=== PATIENT | male | born 1960 | race Caucasian/White ===

== ENCOUNTER 2024-11-07 11:42 | Inpatient (IN) | payer MEDICARE, OTHER, MEDICAID, SELFPAY ==
[2024-11-07] VITALS (19 sets, daily range): BP systolic 84–124; BP diastolic 41–77; PULSE 76–94; RESP 13–98; TEMP 35.9–36.8; O2SAT 94–100; BMI 28.8
--- NOTE | 2024-11-07 12:17 | EKG_ITS ---
[facility] (Formerly [facility]) Test Date: 2024-11-07 Pat Name: MAHNAZ MILLER Department: Room: - Gender: Male [employer]: : 1960 Requested By: Alpesh Do Order Number: [id number] Reading MD: Alpesh Do Measurements Intervals [place] Rate: 85 P: 34 WA: 124 QRS: 42 QRSD: 77 T: 30 QT: 382 QTc: 455 Interpretive Statements SINUS RHYTHM NONSPECIFIC T-WAVE ABNORMALITY Compared to ECG 11/22/2023 14:04:07 Prolonged QT interval no longer present T-wave abnormality still present /store/S0/[id number]/ecg/[id number].pdf
--- NOTE | 2024-11-07 12:18 | XR_ITS ---
Examination: Ultrasound-guided paracentesis Abdominal sonogram limited Date and time of exam: November 05, 2024 at 1414 hours INDICATIONS: Cirrhosis, increasing abdominal distention this week Informed consent provided. A timeout was completed verifying correct patient, procedure, site, positioning, and special adequate movement if applicable. Technique: Multiple sonographic images of the abdomen have been obtained. Appropriate area for paracentesis was marked. Local anesthesia is obtained with 1% lidocaine. Yueh catheter is successfully introduced. Findings: Abdominal sonographic images demonstrate sufficient ascitic fluid for paracentesis. After placing the Yueh catheter, 5900 cc of fluid were successfully removed. During and after completion of the procedure the patient appear in satisfactory and stable condition with no complications observed. Estimated blood loss 0 cc Impression: Abdominal ascites Successful ultrasound-guided paracentesis as described above
--- NOTE | 2024-11-07 12:20 | PD.EDAMS ---
Altered Mental Status RME/HPI General Chief Complaint: Altered Mental Status Stated Complaint: AMS Time Seen by Provider: 11/07/24 12:13 Arrival date/time: 11/07/24 11:42 RME / HPI RME / HPI narrative: 64-year-old male patient with significant history of end-stage liver disease, abdominal ascites requiring frequent paracentesis, was brought in by family via EMS due to altered mental status. Patient was noted to be altered since yesterday, and worsening abdominal distention. Patient is supposed to have outpatient paracentesis last week however it was canceled due to unknown reasons. Usually paracentesis done in [place]. Patient was not noted to have fever. Was not noted to have recent fall or trauma to the head. Patient is moving around however confused. did not notice any vomiting blood or blood in the stool. Patient was noted to have worsening abdominal distention, described as rock solid. Patient is DNR. Patient is not taking his lactulose last intake was last week. This morning patient was about to fall however the was able to catch the patient and there was no injury involved. Related Data Home Medications ?Medication ?Instructions ?Recorded ?Confirmed levothyroxine 25 mcg tablet 25 mcg PO QDAY 10/19/19 01/26/24 furosemide 20 mg tablet 20 mg PO BID 01/26/24 01/26/24 metolazone 5 mg tablet 5 mg PO QDAY 01/26/24 01/26/24 pantoprazole 40 mg tablet,delayed 40 mg PO QDAY 01/26/24 01/26/24 release Allergies Allergy/AdvReac Type Severity Reaction Status Date / Time No Known Allergies Allergy Verified 01/26/24 09:03 Review of Systems Review of Systems Narrative Review of Systems: Review of system reviewed and within normal limits except mentioned in HPI ED Exam Narrative Physical exam: VITAL SIGNS: Reviewed. GENERAL APPEARANCE: Awake, confused, does not follows commands, no acute distress, HEAD AND FACE: Non-traumatic. ENT: PERRL, pink conjunctivitis, eyelid no trauma, Mucous membrane moist. NECK: Supple, nontender, no nuchal rigidity. CHEST: No tenderness, no crepitus, no paradoxical movement, no retractions. LUNGS: Clear, well ventilated, symmetric, no rales, no wheezing, no ronchi, no stridor, good breath sounds bilaterally. HEART: Regular rate, regular rhythm, no murmur, no gallops. ABDOMEN: Soft, positive bowel sounds, distended, positive fluid wave test, no guarding, nontender, no rebound, no masses, RECTAL: Deferred. GENITAL: Deferred. NEUROLOGICAL: Gross motor function intact sensory function intact, Appropriate for age. MUSCULOSKELETAL: low back nontender, full range of motion. EXTREMITIES: Nontender, full range of motion. SKIN: Color pink, dry, no rash, no lacerations, no abrasions, no contusions. LYMPHATICS: Deferred. Course Quality Measures none Orders Category Date Time Status COVID-19 Screening Questionnaire NOW Care 11/07/24 14:39 Active Decision to Admit X1 Care 11/07/24 14:39 Completed EKG (ED ONLY) *Do not use* NOW Care 11/07/24 12:[address] head/brain wo con Stat Exams 11/07/24 14:49 Completed EKG (ED Only) Stat Exams 11/07/24 12:17 Draft US paracentesis abd w/image Stat Exams 11/07/24 12:18 Completed XR chest 1V Stat Exams 11/07/24 12:27 Completed Ammonia Stat Lab 11/07/24 12:46 Completed Bilirubin,Direct Stat Lab 11/07/24 12:46 Completed Blood Culture (Lab) Stat Lab 11/07/24 12:46 Received CBC Stat Lab 11/07/24 12:46 Completed Comprehensive Metabolic Panel Stat Lab 11/07/24 12:46 Completed Lactate (Lactic Acid) Stat Lab 11/07/24 12:46 Completed Lactic Acid, 3 HR Stat Lab 11/07/24 18:00 Completed Magnesium Stat Lab 11/07/24 12:46 Completed Partial Thromboplastin Time Stat Lab 11/07/24 12:46 Completed Phosphorous Stat Lab 11/07/24 12:46 Completed Procalcitonin Stat Lab 11/07/24 12:46 Completed Prothrombin Time with INR Stat Lab 11/07/24 12:46 Completed Urinalysis Stat Lab 11/07/24 17:41 Completed Albumin Human 25% Ivpb [Albuminar-25 Ivpb] Med 11/07/24 15:22 Discontinued 12.5 gm in 50 ml IV X1 Albumin Human 25% Ivpb [Albuminar-25 Ivpb] Med 11/07/24 15:22 Discontinued 12.5 gm in 50 ml IV X1 Diazepam Inj [Valium Inj] Med 11/07/24 12:26 Discontinued 5 mg IVP X1 ONE Lactulose Syrup [Enulose Syrup] Med 11/07/24 14:40 Discontinued 40 gm TN X1 ONE Lidocaine 1% Pf 30 ml [Xylocaine 1% Pf 30 ml] Med 11/07/24 13:56 Discontinued 30 ml .ROUTE .STK-MED ONE cefTRIAXone [Rocephin] 1,000 mg Med 11/07/24 14:32 Discontinued SODIUM CHLORIDE 0.9% (Popper) [Ns 0.9% (P)] 50 ml IV X1 Vital Signs Vital signs: Vital Signs Temperature 97.6 F 11/07/24 11:47 Pulse Rate 85 11/07/24 11:47 Respiratory Rate 20 11/07/24 11:47 Blood Pressure 104/66 11/07/24 11:47 Pulse Oximetry (%) 99 11/07/24 11:47 Oxygen Delivery Method Room Air 11/07/24 11:47 Altered Mental Status MDM Narrative MDM Narrative:: 64-year-old male patient with significant history of end-stage liver disease, abdominal ascites requiring frequent paracentesis, was brought in by family via EMS due to altered mental status. Patient was noted to be altered since yesterday, and worsening abdominal distention. Patient is supposed to have outpatient paracentesis last week however it was canceled due to unknown reasons. Usually paracentesis done in [place]. Patient was not noted to have fever. Was not noted to have recent fall or trauma to the head. Patient is moving around however confused. did not notice any vomiting blood or blood in the stool. Patient was noted to have worsening abdominal distention, described as rock solid. Patient is DNR. Patient is not taking his lactulose last intake was last week. This morning patient was about to fall however the was able to catch the patient and there was no injury involved. Patient's workup is significant for hemoglobin of 8.7, hematocrit of 26.7 no leukocytosis. Creatinine 1.6 lactic acid 3.9 total bili 1.9 ammonia level 108. EKG showed normal sinus rhythm, ventricular rate of 85 bpm, no ST segment elevation depression noted. Chest x-ray showed Moderate vascular congestion Suspicious for diffuse left lung pneumonia Moderate to large left pleural effusion Ultrasound-guided paracentesis was done by IR. Patient to receive IV ceftriaxone. Patient was also given lactulose 40 g per rectal. Case discussed with hospitalist who admitted the patient. Hospitalist is requesting a CT scan of the head before admission. I told him that there is no results to do CT scan at this time, there is no focal neurologic deficit, patient is moving upper and lower extremity with no limitation, except for confusion. There was no head trauma involved recently. Patient is DNR also at the same time. CT scan of the head came back unremarkable. Patient data External records reviewed:: None Clinical information provided by:: family Social determinants that could affect healthcare access:: none Patient has the following chronic illnesses:: End-stage liver disease, DNR How is presenting disease/condition affected by chronic disease/condition?: caused by Evaluation data The following diagnostics were reviewed and interpreted by me:: lab results, radiology exam(s) and EKG tracing(s) Lab and/or radiology exams considered but not ordered:: None Interpretation Summary: See results in [facility] Medications / Prescriptions Medications or Prescriptions considered but not ordered:: None Medication administrations:: Medication Administration History Acetaminophen (Acetaminophen 325 Mg Tablet) 650 mg PO Q6H PRN PRN Reason: Fever >101.5 Stop: 12/07/24 17:24 Acetaminophen (Acetaminophen 325 Mg Tablet) 650 mg PO Q6H PRN PRN Reason: PAIN SCALE 1-3 (mild Stop: 12/07/24 17:24 Docusate Sodium (Docusate Sod 100 Mg Capsule) 100 mg PO QDAY ONDINA; Protocol Stop: 12/07/24 17:29 Last Admin: 11/07/24 17:53 Dose: Not Given Documented By: URIEL Non-Admin Reason: Unable to Swallow Ceftriaxone Sodium/Dextrose (Rocephin/D5w 1gm Iv Premix) 50 mls @ 100 mls/hr IV QDAY ONDINA Stop: 11/15/24 08:59 Lactulose (Lactulose Syrup 20 Gm/30 Ml Udc) 20 gm PO TID ONDINA; Protocol Stop: 12/07/24 21:59 Midodrine (Midodrine 5 Mg Tablet) 5 mg PO TID ONDINA Stop: 12/07/24 17:44 Last Admin: 11/07/24 19:11 Dose: Not Given Documented By: URIEL Non-Admin Reason: Contraindicated Ondansetron HCl (Ondansetron Inj 2 Mg/Ml Inj 2 Ml) 4 mg IV Q6H PRN; Protocol PRN Reason: NAUSEA OR VOMITING Stop: 12/07/24 17:24 Pantoprazole Sodium (Pantoprazole Inj 40 Mg Vial) 40 mg IVP Q12HR ONDINA Stop: 12/07/24 20:59 Sennosides (Senna Tablet) 1 tab PO QDAY ONDINA; Protocol Stop: 12/07/24 17:29 Last Admin: 11/07/24 17:53 Dose: Not Given Documented By: URIEL Non-Admin Reason: Unable to Swallow Discontinued Medications Diazepam (Diazepam Inj 5 Mg/Ml Vial 2 Ml) 5 mg IVP X1 ONE Stop: 11/07/24 12:27 Last Admin: 11/07/24 12:36 Dose: 5 mg Documented By: URIEL Ceftriaxone Sodium 1,000 mg/ (Sodium Chloride) 50 mls @ 100 mls/hr IV X1 ONE Stop: 11/07/24 15:01 Last Infusion: 11/07/24 17:05 Dose: Infused Documented By: Admin: 11/07/24 16:02 Dose: 100 mls/hr Documented By: URIEL Albumin Human (Albuminar-25 Ivpb) 12.5 gm in 50 mls @ 50 mls/hr IV X1 ONE Stop: 11/07/24 16:21 Last Infusion: 11/07/24 17:05 Dose: Infused Documented By: Admin: 11/07/24 16:02 Dose: 50 mls/hr Documented By: URIEL Albumin Human (Albuminar-25 Ivpb) 12.5 gm in 50 mls @ 50 mls/hr IV X1 ONE Stop: 11/07/24 16:21 Last Infusion: 11/07/24 17:05 Dose: Infused Documented By: Admin: 11/07/24 16:03 Dose: 50 mls/hr Documented By: URIEL Sodium Chloride (Ns) 1,000 mls @ 75 mls/hr IV .[id number] ONDINA Stop: 12/07/24 17:29 Ceftriaxone Sodium/Dextrose (Rocephin/D5w 1gm Iv Premix) 50 mls @ 100 mls/hr IV QDAY ONDINA Stop: 11/14/24 17:30 Lactulose (Lactulose Syrup 20 Gm/30 Ml Udc) 40 gm TN X1 ONE; Protocol Stop: 11/07/24 14:41 Last Admin: 11/07/24 16:01 Dose: 40 gm Documented By: URIEL Lidocaine HCl (Lidocaine Inj Pf 1% 30 Ml Vial) Confirm Administered Dose 30 ml .ROUTE .[facility]-MED ONE Stop: 11/07/24 13:57 Last Admin: 11/07/24 16:07 Dose: Not Given Documented By: URIEL Non-Admin Reason: given in IR by Ceftriaxone IV lactulose per rectum Consultations Consultation(s) initiated? (list below): No Diagnosis Differential diagnosis altered mental status: altered mental status and other (Elevated ammonia level, end-stage liver disease, abdominal ascites, pneumonia) Most likely diagnosis given after review of the tests above:: Hyperammonemia, end-stage liver disease abdominal ascites pneumonia altered mental status Admission Indicated Admission indicated?: indicated Explain why admission is indicated or not indicated:: Patient is to be admitted for further management. Admission Request Was there a request for admission?: Yes Admission Attestation Admission request attestation: Discussed case with [] from Hospitalist service regarding admission. Discussed patients ED course, exam findings, labs, and radiology results. The Hospitalist [agrees,declines] to accept the patient for admission. Disposition Plan Disposition Plan: Admit Discharge Plan Plan Patient Disposition: Admit Acute Care w/in Hospital Disposition Comment: Stable Problem List Clinical Impression: Altered mental status, Hyperammonemia, Abdominal ascites, Pleural effusion, Pneumonia, End stage liver disease, DNR (do not resuscitate)
--- NOTE | 2024-11-07 12:27 | XR_ITS ---
Examination: AP chest single view Technique one AP portable upright chest single view Exam date 9: November 07, 2024 1142 hours COMPARISON: November 22, 2023 INDICATIONS: Chest pain today. FINDINGS: Mild enlargement cardiac contour Prominent vascular congestion Suspicious for diffuse left lung pneumonia Moderate to large left pleural effusion IMPRESSION: Moderate vascular congestion Suspicious for diffuse left lung pneumonia Moderate to large left pleural effusion
[2024-11-07] MEDS: DIAZEPAM INJ 5 MG/ML VIAL 2 ML IVP (12:36)
[2024-11-07 12:59] LABS: Lactate (Lactic Acid) 3.9 mMol/L (0.4-2.0)
[2024-11-07 13:04] LABS: Basophils # (Auto) 0.1 Thou/mm3 (0.0-0.2); Basophils % (Auto) 1 % (0-2.5); Eosinophils # (Auto) 0.3 Thou/mm3 (0.0-0.5); Eosinophils % (Auto) 4 % (0-10); Hematocrit 26.7 % (41.0-53.0); Immature Granulocytes % (Auto) 0 % (0-0); Immature Granulocytes Auto 0.03 Thou/mm3 (0.00-0.00); Lymphocytes # (Auto) 0.9 Thou/mm3 (1.0-4.8); Lymphocytes % (Auto) 12 % (10-50); Mean Corpuscular HGB Conc 32.6 g/dl (31.0-37.0); Mean Corpuscular Hemoglobin 29.3 pg (25.0-35.0); Mean Corpuscular Volume 90 fL (80-100); Monocytes # (Auto) 0.9 Thou/mm3 (0.0-0.8); Monocytes % (Auto) 12 % (0-12); Neutrophils # (Auto) 5.3 Thou/mm3 (1.8-7.7); Neutrophils % (Auto) 70 % (37-80); Nucleated Red Blood Cell % 0 /100 WBC (0); Platelet Count 116 Thou/mm3 (140-440); RDW Standard Deviation 47.4 fL (35.1-43.9); Red Blood Count 2.97 Miln/mm3 (4.50-5.90); White Blood Count 7.7 Thou/mm3 (3.8-10.6)
[2024-11-07 13:05] LABS: Hemoglobin 8.7 g/dL (13.5-16.0)
[2024-11-07 13:18] LABS: INR 1.1 (0.9-1.3); Partial Thromboplastin Time 29.8 Seconds (22.0-36.0); Prothrombin Time 12.4 Seconds (9.0-12.2)
[2024-11-07 13:25] LABS: Ammonia 108 uMol/L (11-32)
[2024-11-07 14:10] LABS: Alanine Aminotransferase 11 U/L (10-49); Albumin, Serum 2.4 gm/dL (3.4-4.8); Albumin/Globulin Ratio 0.7 (1.2-2.2); Alkaline Phosphatase 89 U/L (46-116); Anion Gap 11 (7-16); Aspartate Amino Transferase 24 U/L (0-34); BUN/Creatinine Ratio 13 Ratio (12-20); Bilirubin,Direct 0.7 mg/dL (0.0-0.3); Bilirubin,Total 1.9 mg/dL (0.3-1.2); Blood Urea Nitrogen 21 mg/dL (9-23); Calcium 8.1 mg/dL (8.3-10.6); Calcium (Corrected) 9.4 mg/dL (8.5-10.1); Carbon Dioxide 24.2 mMol/L (20.0-31.0); Chloride 106 mMol/L (98-107); Creatinine (Component) 1.6 mg/dL (0.6-1.3); Globulin 3.5 gm/dL (2.3-3.5); Glucose 98 mg/dL (74-106); Magnesium 2.1 mg/dL (1.6-2.6); Osmolality,Calculated 284 (275-295); Phosphorous 3.3 mg/dL (2.4-5.1); Potassium 3.8 mMol/L (3.4-5.1); Procalcitonin 0.14 ng/ml (0.0-0.49); Sodium 141 mMol/L (136-145); Total Protein 5.9 gm/dL (5.7-8.2); eGFR 47 See Note
--- NOTE | 2024-11-07 14:49 | XR_ITS ---
Examination: CT brain head without contrast. 2-D sagittal coronal reconstructions Date and time of exam:November 072024 at 1658 hours INDICATIONS: Altered mental status today CTDI: vol (mGy):42.5 DLP: (mGycm):837 Technique: Multiple CT axial sections of the brain have been obtained, 5 mm slice thickness. Contrast has not been administered. 2-D sagittal, coronal reconstructions have been obtained Low dose protocols were performed. One or more of the following dose reduction techniques were used; automated exposure control, adjustment of the mA and/or KV according to patient size, use of iterative reconstruction technique. Findings: No significant ventricular enlargement. Intra-axial or extra-axial hemorrhage density is not seen. No mass effect or midline shift Basal cisterns are not remarkable. Fourth ventricle is midline. Cranial vault intact. Impression: Negative for acute hemorrhage, mass effect or midline shift Advise clinical correlation and follow up accordingly
[2024-11-07 15:53] LABS: Reflex Lactate? Y
[2024-11-07] MEDS: LACTULOSE SYRUP 20 GM/30 ML UDC 40 GM PR (16:01)
[2024-11-07] MEDS: cefTRIAXone 1,000 MG in SODIUM CHLORIDE 0.9% (Popper) 50 ML 100 MG IV (16:02)
[2024-11-07] MEDS: ALBUMIN HUMAN 25% IVPB 12.5 GM/50 ML BTL IV ×2 (16:02→16:03)
--- NOTE | 2024-11-07 16:34 | PC.CC ---
Patient is a 64 male who presents to the hospital for AMS. Nan SAWYER made [id number] contact with patient. ASW introduced self, role, and reason for visit. Patient appeared not alert and oriented. Patient's Jackie Martinez completed initial assessment with ASW. Patient's provided a POLST and [employer] Directive that was scanned by registration into patient's chart. Patient is DNR/DNI and receives Hospice with [facility]. At home patient uses a walker to ambulate and requires assistance with completing his ADLs. Patient receives primary care with Luz Sheriff. Upon discharge the patient's plans to take patient back home. coordinator cardiopulmonary services to follow up with any discharge needs.
--- NOTE | 2024-11-07 17:37 | ESHP_ITS ---
<Statement entered by Mirna Go MD - 11/08/24 06:01> Patient is a 64-year-old male with past medical history significant for end- stage liver disease on hospice requiring frequent paracentesis who came to the ED due to generalized weakness, altered mental status and recent falls. Patient's at bedside states that patient has been uncooperative with taking his lactulose. Patient presented with a soft blood pressure of 104/66, otherwise hemodynamically stable. Labs significant for slightly low hemoglobin of 8.7, lactic acid of 3.6 and ammonia of 108. In the ED, patient was given x 1 of Valium due to patient's agitation, and later taken to ultrasound to remove 5.9 L of ascitic fluid. Patient given 50 g of albumin status post removal as well as lactulose. CT head was later ordered and requested, which showed no acute hemorrhage at this time. Patient will be admitted to the hospital for further management of acute metabolic encephalopathy in the setting of hyperammonemia and end-stage liver disease. I discussed with and supervised the corporate legal intern physician who took care of this patient. I personally saw and examined the patient and discussed the assessment and plan with the entire medicine team, including my attending , I agree with most of the assessment and plan as documented below Mirna Go M.D. PGY-2 Disclaimer: Despite multiple revisions, due to the dictation software being used, the document bellow may not be free of grammatical errors including phonetic/typographic errors. However, this does not deter from our commitment to providing health care in the patient's best interest in mind. Patient seen and examined at bedside. No acute overnight events reported. <Statement entered by Kathe Schmitz MD - 11/07/24 18:34> I discussed with and supervised the corporate legal intern physician who took care of this patient. I personally saw and examined the patient and discussed the assessment and plan with the entire medicine team, including my attending Dr. Art, I agree with the assessment and plan as documented below Patient seen and examined at bedside today. Labs and imaging reviewed. 64-year-old man with past medical history of end-stage liver disease previously on hospice, who came to the ED brought by the due to altered mental status. Due to patient is poor historian due to his altered history was taken by interviewing the . She stated that since 3 days ago he started to present altered mental status to the patient denied to take his lactulose and frequent falls for which he decided to bring him to the ED. On admission patient blood pressure was soft 104/66 HR 85 respiratory of 20, afebrile saturating 99% on room air. Labs were significant for hemoglobin of 8.7 creatinine 1.6 lactic acid 3.6 ammonia 108. ED course patient received IV diazepam x 1, paracentesis ultrasound-guided was ordered 5.9 L were removed patient received albumin IV as well as lactulose, CT head was ordered that was negative for any acute bleed, midline shift or mass effect and patient will be admitted for further treatment and management of acute encephalopathy most likely secondary to hyperammonemia in the setting of end-stage liver disease Kathe Schmitz MD PGY-3 Disclaimer: Despite multiple revisions, due to the dictation software being used, the document bellow may not be free of grammatical errors including phonetic/typographic errors. However, this does not deter from our commitment to providing health care in the patient's best interest in mind. Documentation for date of: 11/07/24 HPI History of Present Illness Chief complaint: AMS History of present illness: Patient is altered and unable to procide history, history taken from chart review and who was at bedside. 64-year-old male past medical history of end-stage liver disease, recurrent paracentesis, hypotension on midodrine presented to the ED due to altered mental status. According to the patient's symptoms started around few days ago patient does is not compliant with his lactulose. Chronic to the life patient also has been vomiting denies any blood at the time, only food particles. Family also states patient is having shaking in the hands and itchiness around his whole body. Patient is supposed to have outpatient paracentesis last week however it was canceled due to unknown reasons. Has usually paracentesis done in [place], however was not able to last week due to some missing labs apperantly according to the . Patient will be admitted for acute encephalopathy most likely secondary to hyperammonemia in the setting of end-stage liver disease. ED course: Vitals on arrival 104/66 BP, HR 85, RR 20, temp 97.6, O2 sat 99% on room air. Labs significant for hemoglobin 8.7, platelets 116, CHEM panel significant for creatinine 1.6, EGFR 47, lactic acid 3.9, T. bili 1.9, direct bilirubin 0.7, ammonia 108, in the ED patient received diazepam 5 mg, lactulose 40 g, had paracentesis they removed 6 L and was given 25 g of albumin. PMHx: End-stage liver disease, hypertension on midodrine SX Hx: Tonsillectomy Social Hx: Denies alcohol, denies cigarettes, denies illicit drug use FHx: unknown Review of Systems Review of Systems ROS Unobtainable: unobtainable due to mental status Exam Vital Signs Temp Pulse Resp BP Pulse Ox O2 Del Method 98.0 F 83 17 118/77 98 Room Air 11/07/24 17:28 11/07/24 17:28 11/07/24 17:28 11/07/24 17:28 11/07/24 17:28 11/07/24 17:28 Narrative Exam Physical Exam GENERAL: NAD, GCS 11, arousable to speech unable to open eyes, asterexis HEENT: Moist mucosa, rhinopymia CARDIO: Heart RRR, no obvious murmurs PULM: No noted coughing/dyspnea diminished lung sounds b/L GI: Abdomen soft, distended, no pain on palpation. SKIN/MSK/EXT: No wounds/rashes/edema/amputations, no pain on palpation. Pedal pulses present B/L Results: Labs 11/08/24 05:47 11/08/24 05:47 Labs: Short CBC 11/07/24 Range/Units 12:46 WBC 7.7 (3.8-10.6) Thou/mm3 Hgb 8.7 L (13.5-16.0) g/dL Hct 26.7 L (41.0-53.0) % Plt Count 116 L (140-440) Thou/mm3 BMP 11/07/24 12:46 Sodium 141 Potassium 3.8 Chloride 106 Carbon Dioxide 24.2 BUN 21 Creatinine 1.6 H Glucose 98 Calcium 8.1 L Liver Function 11/07/24 Range/Units 12:46 Total Bilirubin 1.9 H (0.3-1.2) mg/dL Direct Bilirubin 0.7 H (0.0-0.3) mg/dL AST 24 (0-34) U/L ALT 11 (10-49) U/L Alkaline Phosphatase 89 (46-116) U/L Albumin 2.4 L (3.4-4.8) gm/dL Quality Measures Quality Measures none Advance care planning discussed with:: patient Medications Home Medications and Allergies Home Medications ?Medication ?Instructions ?Recorded ?Confirmed ?Type levothyroxine 25 mcg tablet 25 mcg PO QDAY 10/19/19 History furosemide 20 mg tablet 20 mg PO BID 01/26/24 History metolazone 5 mg tablet 5 mg PO QDAY 01/26/24 History pantoprazole 40 mg tablet,delayed 40 mg PO QDAY 01/26/24 History release Allergies Allergy/AdvReac Type Severity Reaction Status Date / Time No Known Allergies Allergy Verified 01/26/24 09:03 Visit Medications Acetaminophen (Acetaminophen 325 Mg Tablet) 650 mg PO Q6H PRN PRN Reason: Fever >101.5 Stop: 12/07/24 17:24 Acetaminophen (Acetaminophen 325 Mg Tablet) 650 mg PO Q6H PRN PRN Reason: PAIN SCALE 1-3 (mild Stop: 12/07/24 17:24 Docusate Sodium (Docusate Sod 100 Mg Capsule) 100 mg PO QDAY [facility]; Protocol Stop: 12/07/24 17:29 Sodium Chloride (Ns) 1,000 mls @ 75 mls/hr IV .[id number] [facility] Stop: 12/07/24 17:29 Ceftriaxone Sodium/Dextrose (Rocephin/D5w 1gm Iv Premix) 50 mls @ 100 mls/hr IV QDAY [facility] Stop: 11/15/24 08:59 Lactulose (Lactulose Syrup 20 Gm/30 Ml Udc) 20 gm PO TID [facility]; Protocol Stop: 12/07/24 21:59 Ondansetron HCl (Ondansetron Inj 2 Mg/Ml Inj 2 Ml) 4 mg IV Q6H PRN; Protocol PRN Reason: NAUSEA OR VOMITING Stop: 12/07/24 17:24 Pantoprazole Sodium (Pantoprazole Inj 40 Mg Vial) 40 mg IVP Q12HR [facility] Stop: 12/07/24 20:59 Sennosides (Senna Tablet) 1 tab PO QDAY [facility]; Protocol Stop: 12/07/24 17:29 Discontinued Medications Diazepam (Diazepam Inj 5 Mg/Ml Vial 2 Ml) 5 mg IVP X1 ONE Stop: 11/07/24 12:27 Last Admin: 11/07/24 12:36 Dose: 5 mg Ceftriaxone Sodium 1,000 mg/ (Sodium Chloride) 50 mls @ 100 mls/hr IV X1 ONE Stop: 11/07/24 15:01 Last Infusion: 11/07/24 17:05 Dose: Infused Albumin Human (Albuminar-25 Ivpb) 12.5 gm in 50 mls @ 50 mls/hr IV X1 ONE Stop: 11/07/24 16:21 Last Infusion: 11/07/24 17:05 Dose: Infused Albumin Human (Albuminar-25 Ivpb) 12.5 gm in 50 mls @ 50 mls/hr IV X1 ONE Stop: 11/07/24 16:21 Last Infusion: 11/07/24 17:05 Dose: Infused Ceftriaxone Sodium/Dextrose (Rocephin/D5w 1gm Iv Premix) 50 mls @ 100 mls/hr IV QDAY [facility] Stop: 11/14/24 17:30 Lactulose (Lactulose Syrup 20 Gm/30 Ml Udc) 40 gm HI X1 ONE; Protocol Stop: 11/07/24 14:41 Last Admin: 11/07/24 16:01 Dose: 40 gm Assessment & Plan Plan 64-year-old male past medical history of end-stage liver disease, recurrent paracentesis, hypotension on midodrine presented to the ED due to altered mental status. According to the patient's symptoms started around few days ago patient does is not compliant with his lactulose. Chronic to the life patient also has been vomiting denies any blood at the time, only food particles. Family also states patient is having shaking in the hands and itchiness around his whole body. Patient is supposed to have outpatient paracentesis last week however it was canceled due to unknown reasons. Has usually paracentesis done in [place], however was not able to last week due to some missing labs apperantly according to the . Patient will be admitted for acute encephalopathy most likely secondary to hyperammonemia in the setting of end-stage liver disease. #Acute encephalopathy likely secondary to #Hyperammonemia in the setting of #End-stage liver disease Patient has a GCS of 11 Per the at bedside patient is not compliant with his medications On physical examination patient is this has abdominal distention with asterixis on admission patient was was having abdominal distention which required paracentesis had 6 L of fluid removed and was given [address] head negative for bleed ? Ceftriaxone for SBP ? Lactulose TID goal 3BM per day - NPO - PPI #Hx of Hypotension Likely in the setting of end-stage liver disease ? Started midodrine 5 mg 3 times daily #Lactic acidosis likely secondary to ESLD - monitor for now continue to trend Case discussed with my seniors Dr. Go PGY-2, Dr. Schmitz PGY-[address] Rubens Swenson MD PGY-1 Disposition: tele Fluids: None Feeding: NPO Thrombo prophylaxis: SCDs Gastric Ulcer prophylaxis: Pantoprazole CODE STATUS: DNR Attending Provider Attestation/Addendum I have examined the patient, reviewed labs and imaging findings, discussed the case with the resident(s), and reviewed entered orders. I agree with the plan of care as outlined in this note. Dr. Rubens MD
[2024-11-07 18:15] LABS: Lactic Acid, 3 HR 2.2 mMol/L (0.4-2.0)
[2024-11-07 18:17] LABS: Collection Type, Urine Clean Catch
[2024-11-07 18:36] LABS: Bilirubin,Urine Negative (Negative); Blood,Urine 1+ (Negative); Clarity,Urine Turbid (Clear/Hazy); Color,Urine Yellow (Lt Yel-Yel); Glucose, Urine Negative (Negative); Ketones,Urine Negative (Negative); Leukocyte Esterase,Urine Positive (Negative); Nitrite,Urine Negative (Negative); Protein,Urine Negative (Neg - Trace); RBC,Urine 2 /hpf (0-3); Squamous Epithelial Cell,Urine 9 /hpf (0-5); WBC,Urine 10 /hpf (0-5)
--- NOTE | 2024-11-07 22:08 | PC.NURSE ---
report called to dimple TORIBIO. pt will be taken to [id number] on monitor by myself. Pt alvaro, MIRI
[2024-11-07] MEDS: LACTULOSE SYRUP 20 GM/30 ML UDC PO (23:52)
[2024-11-07] MEDS: PANTOPRAZOLE INJ 40 MG VIAL IVP (23:52)
[2024-11-07] MEDS: MIDODRINE 5 MG TABLET PO (23:53)
[2024-11-08] VITALS (14 sets, daily range): BP systolic 93–105; BP diastolic 45–66; PULSE 67–86; RESP 14–96; TEMP 36.1–36.7; O2SAT 90–98; BMI 28.8
[2024-11-08 00:44] LABS: Lactate (Lactic Acid) 1.8 mMol/L (0.4-2.0)
[2024-11-08] MEDS: MIDODRINE 5 MG TABLET PO ×3 (05:51→21:17)
[2024-11-08] MEDS: LACTULOSE SYRUP 20 GM/30 ML UDC PO ×3 (05:52→21:15)
[2024-11-08 06:11] LABS: Lactate (Lactic Acid) 1.9 mMol/L (0.4-2.0)
[2024-11-08 06:17] LABS: Basophils # (Auto) 0.1 Thou/mm3 (0.0-0.2); Basophils % (Auto) 2 % (0-2.5); Eosinophils # (Auto) 0.7 Thou/mm3 (0.0-0.5); Eosinophils % (Auto) 11 % (0-10); Hematocrit 24.4 % (41.0-53.0); Immature Granulocytes % (Auto) 0 % (0-0); Immature Granulocytes Auto 0.01 Thou/mm3 (0.00-0.00); Lymphocytes # (Auto) 1.1 Thou/mm3 (1.0-4.8); Lymphocytes % (Auto) 18 % (10-50); Mean Corpuscular HGB Conc 32.8 g/dl (31.0-37.0); Mean Corpuscular Hemoglobin 29.5 pg (25.0-35.0); Mean Corpuscular Volume 90 fL (80-100); Monocytes # (Auto) 0.8 Thou/mm3 (0.0-0.8); Monocytes % (Auto) 12 % (0-12); Neutrophils # (Auto) 3.5 Thou/mm3 (1.8-7.7); Neutrophils % (Auto) 57 % (37-80); Nucleated Red Blood Cell % 0 /100 WBC (0); Platelet Count 107 Thou/mm3 (140-440); RDW Standard Deviation 46.6 fL (35.1-43.9); Red Blood Count 2.71 Miln/mm3 (4.50-5.90); White Blood Count 6.1 Thou/mm3 (3.8-10.6)
[2024-11-08 06:51] LABS: Alanine Aminotransferase 10 U/L (10-49); Albumin, Serum 2.1 gm/dL (3.4-4.8); Albumin/Globulin Ratio 0.7 (1.2-2.2); Alkaline Phosphatase 73 U/L (46-116); Anion Gap 9 (7-16); Aspartate Amino Transferase 23 U/L (0-34); BUN/Creatinine Ratio 13 Ratio (12-20); Bilirubin,Total 2.2 mg/dL (0.3-1.2); Blood Urea Nitrogen 19 mg/dL (9-23); Calcium 8.2 mg/dL (8.3-10.6); Calcium (Corrected) 9.7 mg/dL (8.5-10.1); Carbon Dioxide 26.2 mMol/L (20.0-31.0); Cardiac Risk Estimate 2.8 RATIO (4.0-6.7); Chloride 109 mMol/L (98-107); Cholesterol 110 mg/dL (132-200); Creatinine (Component) 1.5 mg/dL (0.6-1.3); Estimated Creatinine Clearance 53.3 mL/min (>60); Globulin 2.9 gm/dL (2.3-3.5); Glucose 79 mg/dL (74-106); HDL Cholesterol 40 mg/dL (40-60); LDL Cholesterol,Calculated 60 mg/dL (0-130); Magnesium 2.1 mg/dL (1.6-2.6); Osmolality,Calculated 288 (275-295); Phosphorous 3.4 mg/dL (2.4-5.1); Potassium 3.8 mMol/L (3.4-5.1); Sodium 144 mMol/L (136-145); Thyroid Stimulating Hormone 3.24 uIU/mL (0.55-4.78); Triglycerides 52 mg/dL (30-150); eGFR 51 See Note
[2024-11-08] MEDS: DOCUSATE SOD 100 MG CAPSULE PO (09:59)
[2024-11-08] MEDS: PANTOPRAZOLE INJ 40 MG VIAL IVP ×2 (09:59→21:15)
[2024-11-08] MEDS: SENNA TABLET 1 TAB PO (09:59)
[2024-11-08] MEDS: cefTRIAXone/D5w 1gm IV premix 50 ML IV (10:00)
[2024-11-08 12:06] LABS: Lactate (Lactic Acid) 1.5 mMol/L (0.4-2.0)
--- NOTE | 2024-11-08 12:07 | PC.SS ---
SS received a call from Chaparrita with [place], pt is aligned with [facility].
--- NOTE | 2024-11-08 12:22 | ESPR_ITS ---
<Statement entered by Mirna Go MD - 11/08/24 17:05> Patient seen and examined at bedside. No acute overnight events reported. Will continue with Lactulose PO TID and titrate to 2-3 BM daily. Patient's mentation is slowly progressing back to baseline, currently A&Ox [address] Patient's LA is downtrending. Anticipate discharge within 24-48 hours. I discussed with and supervised the record label internship physician who took care of this patient. I personally saw and examined the patient and discussed the assessment and plan with the entire medicine team, including my attending , I agree with most of the assessment and plan as documented below Mirna Go M.D. PGY-2 Disclaimer: Despite multiple revisions, due to the dictation software being used, the document bellow may not be free of grammatical errors including phonetic/typographic errors. However, this does not deter from our commitment to providing health care in the patient's best interest in mind. Documentation for date of: 11/08/24 Subjective Subjective Interval history: Patient seen today at the bedside fine awake, alert, oriented x [address] No overnight events reported. Vital signs stable at this time. Labs significant for improving kidney function at this time. Will continue current management at this time. Possible discharge in the next 24-48 hours. Exam Vital Signs Temp Pulse Resp BP Pulse Ox O2 Del Method 97 F 86 16 105/53 L 97 Room Air 11/08/24 08:00 11/08/24 08:00 11/08/24 08:00 11/08/24 08:00 11/08/24 08:00 11/08/24 08:00 Narrative Exam Physical Exam GENERAL: NAD, AAOx2 HEENT: Moist mucosa, rhinopymia CARDIO: Heart RRR, no obvious murmurs PULM: No noted coughing/dyspnea diminished lung sounds b/L GI: Abdomen soft, distended, no pain on palpation. SKIN/MSK/EXT: No wounds/rashes/edema/amputations, no pain on palpation. Pedal pulses present B/L Objective Labs 11/08/24 05:47 11/08/24 05:47 Labs: Laboratory Results - last 24 hr 11/07/24 11/07/24 11/07/24 12:46 17:41 18:00 WBC 7.7 RBC 2.97 L Hgb 8.7 L Hct 26.7 L MCV 90 MCH 29.3 MCHC 32.6 RDW Std Deviation 47.4 H Plt Count 116 L Neut % (Auto) 70 Lymph % (Auto) 12 [place] % (Auto) 12 Eos % (Auto) 4 Baso % (Auto) 1 Neut # (Auto) 5.3 Lymph # (Auto) 0.9 L [place] # (Auto) 0.9 H Eos # (Auto) 0.3 Baso # (Auto) 0.1 Immature Gran # (Auto) 0.03 H Absolute Nucleated RBC 0.00 Immature Gran % 0 Nucleated RBC % 0 PT 12.4 H INR 1.1 APTT 29.8 Sodium 141 Potassium 3.8 Chloride 106 Carbon Dioxide 24.2 Anion Gap 11 BUN 21 Creatinine 1.6 H Estim Creat Clear Calc 50.0 L eGFR 47 L BUN/Creatinine Ratio 13 Glucose 98 Calculated Osmolality 284 Lactic Acid 3.9 H 2.2 H Calcium 8.1 L Corrected Calcium 9.4 Phosphorus 3.3 Magnesium 2.1 Total Bilirubin 1.9 H Direct Bilirubin 0.7 H AST 24 ALT 11 Alkaline Phosphatase 89 Ammonia 108 H* Total Protein 5.9 Albumin 2.4 L Globulin 3.5 Albumin/Globulin Ratio 0.7 L Triglycerides Cholesterol LDL Cholesterol, Calc HDL Cholesterol Cholesterol/HDL Ratio Procalcitonin 0.14 TSH Ur Collection Type Clean Catch Urine Color Yellow Urine Clarity Turbid A Urine pH 6.0 Ur Specific [place] 1.010 Urine Protein Negative Urine Glucose (UA) Negative Urine Ketones Negative Urine Blood 1+ A Urine Nitrite Negative Urine Bilirubin Negative Urine Urobilinogen (Auto) 2.0 Ur Leukocyte Esterase Positive Urine RBC 2 Urine WBC 10 H Ur Squamous Epith Cells 9 H Urine Bacteria None 11/08/24 11/08/24 11/08/24 00:30 05:47 11:56 WBC 6.1 RBC 2.71 L Hgb 8.0 L Hct 24.4 L MCV 90 MCH 29.5 MCHC 32.8 RDW Std Deviation 46.6 H Plt Count 107 L Neut % (Auto) 57 Lymph % (Auto) 18 [place] % (Auto) 12 Eos % (Auto) 11 H Baso % (Auto) 2 Neut # (Auto) 3.5 Lymph # (Auto) 1.1 [place] # (Auto) 0.8 Eos # (Auto) 0.7 H Baso # (Auto) 0.1 Immature Gran # (Auto) 0.01 H Absolute Nucleated RBC 0.00 Immature Gran % 0 Nucleated RBC % 0 PT INR APTT Sodium 144 Potassium 3.8 Chloride 109 H Carbon Dioxide 26.2 Anion Gap 9 BUN 19 Creatinine 1.5 H Estim Creat Clear Calc 53.3 L eGFR 51 L BUN/Creatinine Ratio 13 Glucose 79 Calculated Osmolality 288 Lactic Acid 1.8 1.9 1.5 Calcium 8.2 L Corrected Calcium 9.7 Phosphorus 3.4 Magnesium 2.1 Total Bilirubin 2.2 H Direct Bilirubin AST 23 ALT 10 Alkaline Phosphatase 73 Ammonia Total Protein 5.0 L Albumin 2.1 L Globulin 2.9 Albumin/Globulin Ratio 0.7 L Triglycerides 52 Cholesterol 110 L LDL Cholesterol, Calc 60 HDL Cholesterol 40 Cholesterol/HDL Ratio 2.8 L Procalcitonin TSH 3.24 Ur Collection Type Urine Color Urine Clarity Urine pH Ur Specific [place] Urine Protein Urine Glucose (UA) Urine Ketones Urine Blood Urine Nitrite Urine Bilirubin Urine Urobilinogen (Auto) Ur Leukocyte Esterase Urine RBC Urine WBC Ur Squamous Epith Cells Urine Bacteria Quality Measures Quality Measures none Advance care planning discussed with:: patient Assessment & Plan Assessment Current Active Medications: Generic Name Dose Route Start Last Admin Trade Name Freq PRN Reason Stop Dose Admin Acetaminophen 650 mg 11/07/24 17:25 Acetaminophen 325 Mg Tablet PO 12/07/24 17:24 Q6H PRN Fever >101.5 Acetaminophen 650 mg 11/07/24 17:25 Acetaminophen 325 Mg Tablet PO 12/07/24 17:24 Q6H PRN PAIN SCALE 1-3 (mild Docusate Sodium 100 mg 11/07/24 17:30 11/08/24 09:59 Docusate Sod 100 Mg Capsule PO 12/07/24 17:29 100 mg QDAY [facility] Administration Protocol Ceftriaxone Sodium/Dextrose 50 mls @ 100 mls/hr 11/08/24 09:00 11/08/24 10:00 Rocephin/D5w 1gm Iv Premix IV 11/15/24 08:59 100 mls/hr QDAY [facility] Administration Lactulose 20 gm 11/07/24 22:00 11/08/24 05:52 Lactulose Syrup 20 Gm/30 Ml Udc PO 12/07/24 21:59 20 gm TID [facility] Administration Protocol Midodrine 5 mg 11/07/24 17:45 11/08/24 05:51 Midodrine 5 Mg Tablet PO 12/07/24 17:44 5 mg TID [facility] Administration Ondansetron HCl 4 mg 11/07/24 17:25 Ondansetron Inj 2 Mg/Ml Inj 2 Ml IV 12/07/24 17:24 Q6H PRN NAUSEA OR VOMITING Protocol Pantoprazole Sodium 40 mg 11/07/24 21:00 11/08/24 09:59 Pantoprazole Inj 40 Mg Vial IVP 12/07/24 20:59 40 mg Q12HR [facility] Administration Sennosides 1 tab 11/07/24 17:30 11/08/24 09:59 Senna Tablet PO 12/07/24 17:29 1 tab QDAY [facility] Administration Protocol Plan 64-year-old male past medical history of end-stage liver disease, recurrent paracentesis, hypotension on midodrine presented to the ED due to altered mental status. According to the patient's symptoms started around few days ago patient does is not compliant with his lactulose. Chronic to the life patient also has been vomiting denies any blood at the time, only food particles. Family also states patient is having shaking in the hands and itchiness around his whole body. Patient is supposed to have outpatient paracentesis last week however it was canceled due to unknown reasons. Has usually paracentesis done in [place], however was not able to last week due to some missing labs apperantly according to the . Patient will be admitted for acute encephalopathy most likely secondary to hyperammonemia in the setting of end-stage liver disease. #Acute encephalopathy likely secondary to -improving #Hyperammonemia in the setting of #End-stage liver disease Patient has a GCS of 11 Per the at bedside patient is not compliant with his medications On physical examination patient is this has abdominal distention with asterixis on admission patient was was having abdominal distention which required paracentesis had 6 L of fluid removed and was given [address] head negative for bleed ? Ceftriaxone for SBP ? Lactulose TID goal 3BM per day - PPI #Hx of Hypotension Likely in the setting of end-stage liver disease ? Started midodrine 5 mg 3 times daily #Lactic acidosis likely secondary to ESLD - monitor for now continue to trend Case discussed with my seniors Dr. Go PGY-[address] Rubens Swenson MD PGY-1 Disposition: tele Fluids: None Feeding: regular Thrombo prophylaxis: SCDs Gastric Ulcer prophylaxis: Pantoprazole CODE STATUS: DNR Attending Provider Attestation/Addendum I have examined the patient, reviewed labs and imaging findings, discussed the case with the resident(s), and reviewed entered orders. I agree with the plan of care as outlined in this note, with these additional summaries/recommendations: Patient and seen at bedside. Today patient's mental status is improved compared to yesterday although not back to baseline mental status. He was able to state his name but reported he is in [place] and was unable to recall the year. We will continue lactulose and rifaximin. Continue frequent reorientation and non-Pharm measures to prevent delirium. Ammonia level on admission was in the 100s and CT head was relatively within normal limits. Patient underwent paracentesis in the emergency department with 590 0 cc of fluid removed. He received albumin. Patient has underlying decompensated cirrhosis and was on hospice prior to hospitalization. requests to go back on hospice once cleared for discharge. Case management notified and we will follow-up. Patient has underlying chronic hypotension from liver disease and receiving midodrine. We will monitor closely and increase dose if needed. Patient has persistent lactic acid most likely type B from liver disease and decreased clearance. and patient updated on the plan and in agreement. Repeat hematology and chemistry panel in AM. Dr. Rubens MD
[2024-11-09] VITALS (7 sets, daily range): BP systolic 81–107; BP diastolic 55–71; PULSE 63–82; RESP 13–97; TEMP 36.2–36.6; O2SAT 95–99; BMI 24.0
[2024-11-09] MEDS: LACTULOSE SYRUP 20 GM/30 ML UDC PO (05:15)
[2024-11-09] MEDS: MIDODRINE 5 MG TABLET PO (05:15)
[2024-11-09 06:03] LABS: Basophils # (Auto) 0.1 Thou/mm3 (0.0-0.2); Basophils % (Auto) 2 % (0-2.5); Eosinophils # (Auto) 0.9 Thou/mm3 (0.0-0.5); Eosinophils % (Auto) 13 % (0-10); Hematocrit 26.2 % (41.0-53.0); Immature Granulocytes % (Auto) 0 % (0-0); Immature Granulocytes Auto 0.02 Thou/mm3 (0.00-0.00); Lymphocytes # (Auto) 1.5 Thou/mm3 (1.0-4.8); Lymphocytes % (Auto) 21 % (10-50); Mean Corpuscular HGB Conc 32.8 g/dl (31.0-37.0); Mean Corpuscular Hemoglobin 29.6 pg (25.0-35.0); Mean Corpuscular Volume 90 fL (80-100); Monocytes # (Auto) 1.1 Thou/mm3 (0.0-0.8); Monocytes % (Auto) 15 % (0-12); Neutrophils # (Auto) 3.4 Thou/mm3 (1.8-7.7); Neutrophils % (Auto) 48 % (37-80); Nucleated Red Blood Cell % 0 /100 WBC (0); Platelet Count 107 Thou/mm3 (140-440); Red Blood Count 2.91 Miln/mm3 (4.50-5.90)
[2024-11-09 06:07] LABS: Hemoglobin 8.6 g/dL (13.5-16.0)
[2024-11-09 06:49] LABS: Alanine Aminotransferase 9 U/L (10-49); Albumin, Serum 2.1 gm/dL (3.4-4.8); Albumin/Globulin Ratio 0.7 (1.2-2.2); Alkaline Phosphatase 75 U/L (46-116); Anion Gap 8 (7-16); Aspartate Amino Transferase 26 U/L (0-34); BUN/Creatinine Ratio 11 Ratio (12-20); Blood Urea Nitrogen 18 mg/dL (9-23); Calcium (Corrected) 9.5 mg/dL (8.5-10.1); Carbon Dioxide 26.3 mMol/L (20.0-31.0); Chloride 109 mMol/L (98-107); Creatinine (Component) 1.7 mg/dL (0.6-1.3); Estimated Creatinine Clearance 42.7 mL/min (>60); Globulin 2.9 gm/dL (2.3-3.5); Glucose 71 mg/dL (74-106); Osmolality,Calculated 284 (275-295); Phosphorous 3.3 mg/dL (2.4-5.1); Potassium 4.1 mMol/L (3.4-5.1); Sodium 143 mMol/L (136-145); eGFR 44 See Note
--- NOTE | 2024-11-09 07:22 | PD.RESPRO ---
Documentation for date of: 11/09/24 Exam Vital Signs Temp Pulse Resp BP Pulse Ox O2 Del Method 97.9 F 68 19 81/57 L 95 Room Air 11/09/24 04:00 11/09/24 05:15 11/09/24 04:00 11/09/24 05:15 11/09/24 04:00 11/09/24 04:00 Objective Labs 11/09/24 04:15 11/09/24 04:15 Labs: Laboratory Results - last 24 hr 11/08/24 11/09/24 11:56 04:15 WBC 7.0 RBC 2.91 L Hgb 8.6 L Hct 26.2 L MCV 90 MCH 29.6 MCHC 32.8 RDW Std Deviation 47.0 H Plt Count 107 L Neut % (Auto) 48 Lymph % (Auto) 21 [place] % (Auto) 15 H Eos % (Auto) 13 H Baso % (Auto) 2 Neut # (Auto) 3.4 Lymph # (Auto) 1.5 [place] # (Auto) 1.1 H Eos # (Auto) 0.9 H Baso # (Auto) 0.1 Immature Gran # (Auto) 0.02 H Absolute Nucleated RBC 0.00 Immature Gran % 0 Nucleated RBC % 0 Sodium 143 Potassium 4.1 Chloride 109 H Carbon Dioxide 26.3 Anion Gap 8 BUN 18 Creatinine 1.7 H Estim Creat Clear Calc 42.7 L eGFR 44 L BUN/Creatinine Ratio 11 L Glucose 71 L Calculated Osmolality 284 Lactic Acid 1.5 Calcium 8.0 L Corrected Calcium 9.5 Phosphorus 3.3 Magnesium 2.0 Total Bilirubin 2.0 H AST 26 ALT 9 L Alkaline Phosphatase 75 Total Protein 5.0 L Albumin 2.1 L Globulin 2.9 Albumin/Globulin Ratio 0.7 L Quality Measures Quality Measures none Assessment & Plan Assessment Current Active Medications: Generic Name Dose Route Start Last Admin Trade Name Freq PRN Reason Stop Dose Admin Acetaminophen 650 mg 11/07/24 17:25 Acetaminophen 325 Mg Tablet PO 12/07/24 17:24 Q6H PRN Fever >101.5 Acetaminophen 650 mg 11/07/24 17:25 Acetaminophen 325 Mg Tablet PO 12/07/24 17:24 Q6H PRN PAIN SCALE 1-3 (mild Docusate Sodium 100 mg 11/07/24 17:30 11/08/24 09:59 Docusate Sod 100 Mg Capsule PO 12/07/24 17:29 100 mg QDAY [facility] Administration Protocol Ceftriaxone Sodium/Dextrose 50 mls @ 100 mls/hr 11/08/24 09:00 11/09/24 07:11 Rocephin/D5w 1gm Iv Premix IV 11/15/24 08:59 Infused QDAY [facility] Infusion Lactulose 20 gm 11/07/24 22:00 11/09/24 05:15 Lactulose Syrup 20 Gm/30 Ml Udc PO 12/07/24 21:59 20 gm TID O[facility] Administration Protocol Midodrine 5 mg 11/07/24 17:45 11/09/24 05:15 Midodrine 5 Mg Tablet PO 12/07/24 17:44 5 mg TID O[facility] Administration Ondansetron HCl 4 mg 11/07/24 17:25 Ondansetron Inj 2 Mg/Ml Inj 2 Ml IV 12/07/24 17:24 Q6H PRN NAUSEA OR VOMITING Protocol Pantoprazole Sodium 40 mg 11/07/24 21:00 11/08/24 21:15 Pantoprazole Inj 40 Mg Vial IVP 12/07/24 20:59 40 mg Q12HR O[facility] Administration Sennosides 1 tab 11/07/24 17:30 11/08/24 09:59 Senna Tablet PO 12/07/24 17:29 1 tab QDAY [facility] Administration Protocol
[2024-11-09] MEDS: PANTOPRAZOLE INJ 40 MG VIAL IVP (08:01)
[2024-11-09] MEDS: cefTRIAXone/D5w 1gm IV premix 50 ML IV (08:01)
[2024-11-09] MEDS: SENNA TABLET 1 TAB PO (08:02)
[2024-11-09] MEDS: DOCUSATE SOD 100 MG CAPSULE PO (08:02)
--- NOTE | 2024-11-09 09:06 | CHAP ---
Patient expressed gratitude for visit and prayer.
--- NOTE | 2024-11-09 11:46 | PC.SS ---
SS met with pt and pt at in regards to DC. Pt to be DC home with [facility]. SS sent referral to [facility] pt is already established prior to admission. will transport pt home, no further needs identified.
--- NOTE | 2024-11-09 15:03 | PD.RESDS ---
Planned Discharge Date 11/09/24 DS: Providers Provider Date of admission: 11/07/24 17:25 Primary care physician: Luz Sheriff MD Admitting Provider: Yuval Art MD Attending Provider on Admission: Yuval Art MD Consults: 11/08/24 08:37 Referral Speech Therapy Stat Comment: 11/09/24 10:11 Referral Hospice Routine Comment: DC Hospice Attending Provider on DC: Kathe Schmitz MD Discharging Provider: Kathe Schmitz MD DS: Diagnosis Problem List Completed Was Problem List Reviewed/Reconciled?: Yes Hospital Course Hospital Course Hospital course: 64-year-old man with past medical history of end-stage liver disease on hospice, history of recurrent paracentesis who was admitted for acute metabolic encephalopathy secondary to hyperammonemia in the setting of end-stage liver disease on 11/07/2024. Per patient he was not compliant with the lactulose for which he became altered and brought him to the ED. During hospital stay patient received paracentesis for which 5.9 L of ascitic fluid were removed, patient was started on lactulose and mental status started to improve, patient is back to mentation baseline, respond to question properly, tolerating p.o. Patient is safe and stable for discharge home on hospice as he was before admission. All questions were answered and recommendation were given to hold Lasix and levothyroxine until seen by hospice, stop metolazone until being follow-up with PCP and hospice. Patient will be discharged home with: ? Continue lactulose 20 g p.o. 3 times daily ? Take midodrine 10 mg p.o. 3 times daily ? Continue Protonix 40 mg p.o. daily ? Hold Lasix until follow-up with PCP and hospice ? Take a CMP in 1 week and follow-up with hospice and PCP #Acute encephalopathy resolved #Hyperammonemia resolved #End-stage liver disease #Hx of Hypotension #Lactic acidosis resolved l Patient discussed with my attending Dr Rubens Schmitz MD PGY-3 Disclaimer: Despite multiple revisions, due to the dictation software being used, the document bellow may not be free of grammatical errors including phonetic/typographic errors. However, this does not deter from our commitment to providing health care in the patient's best interest in mind. Status at Discharge Overall status at discharge: patient is back to baseline Time Spent with Patient Time attestation: Total time spent providing and/or coordinating discharge services: Time spent: Greater than 30 minutes Exam Vital Signs Temp Pulse Resp BP Pulse Ox O2 Del Method 97.2 F 65 13 107/63 99 Room Air 11/09/24 12:00 11/09/24 12:00 11/09/24 12:00 11/09/24 12:00 11/09/24 12:00 11/09/24 12:00 Narrative Exam General: No acute distress, frail, looks chronically ill alert, interactive. HEENT: NC/AT, PERRL, EOMI, Good conjugate gaze, moist mucous membranes, oropharynx clear, Neck: Supple, No masses, No adenopathy, carotid pulse 2+ bilaterally without bruits, No JVD, normal range of motion. Chest: Symmetrical, atraumatic, and with equal expansion , Nontender on palpation no deformity and no crepitus. CVS: S1 and S2 present, Regular rate and rhythm, No murmurs, rubs or gallops perceived during auscultation. Lungs: Normal respiratory effort, CTAB, no wheezing, rhonchi or rales perceived during auscultation, No intercostal or subcostal retraction. Abdomen : Increased abdominal girth, no tenderness to palpation, no guarding ,no rebound, +BS Extremities: No edema, warm well perfused, normal tone and ROM, strength and sensation intact, cap refill less than 2, +2 dp equal bilaterally, able to move all 4 extremities spontaneously. Skin: Intact, no rashes, no lesions, no erythema or jaundice noted Neuro: AOx3, no focal neurologic deficits noted, GCS 15 Psych: Appropriate mood and affect. Discharge Plan Plan Patient Disposition: HOME (Self Care) Disposition Comment: Stable Patient condition on transfer: Stable Care Plan Goals: All questions were answered recommendation were given to come at the ED at anytime if he is not feeling well, follow-up with hospice company Continue home medications ? Continue lactulose 20 g p.o. 3 times daily ? Take midodrine 10 mg p.o. 3 times daily ? Continue Protonix 40 mg p.o. daily ? Hold Lasix until follow-up with PCP and hospice ? Take a CMP in 1 week and follow-up with hospice and PCP Prescriptions/Referrals Prescriptions/Med Rec: New midodrine 5 mg Tablet 10 mg PO TID 30 Days Qty: 180 0RF lactulose [Kristalose] 20 gram packet 20 g PO TID 30 Days Qty: 15 1RF Continued pantoprazole 40 mg tablet,delayed release (DR/EC) 40 mg PO QDAY Patient Comments: TAKE ONE TABLET BY MOUTH EVERY DAY HEARTBURN FOR GASTRITIS Held levothyroxine 25 mcg Tablet 25 mcg PO QDAY Hold Instructions: until seen by hospice furosemide 20 mg tablet 20 mg PO BID Hold Instructions: hold until seen by hospice Patient Comments: TAKE ONE TABLET BY MOUTH TWICE DAILY Discontinued metolazone 5 mg tablet 5 mg PO QDAY Patient Comments: TAKE ONE TABLET BY MOUTH EVERY DAY A DIURETIC Referrals: Luz Sheriff MD [Primary Care Provider] - Patient/Caregiver Discharge Instructions Meds to Beds: No Discharge Activity: activity as tolerated Print Language: Guyanese Stand Alone Forms: Erika Award Info., Patient Portal Info Letter Discharge Order Discharge Orders: Discharge (Routine); Ordered 11/09/24 Ordered By: Kathe Schmitz Quality Discharge Quality Measures VTE prophylaxis MD Attestestation MD Attestation I have examined the patient, reviewed labs and imaging findings, discussed the case with the resident(s), and reviewed entered orders. I agree with the plan of care as outlined in this note. Time spent: [address] Rubens MD
== END 2024-11-09 13:03 | disposition home or self-care (01) | DRG 441 ==
LOC: SERX 15:58 → SERHOLD 17:45 → S2NX 22:34
PROVIDERS: Nurse Practitioner Family; Student in an Organized Health Care Education/Training Program; Admitting Provider Student in an Organized Health Care Education/Training Program; Emergency Provider Family Medicine; PCP Internal Medicine; Visit Provider Student in an Organized Health Care Education/Training Program
DX: K72.10 Chronic hepatic failure without coma (principal); G93.41 Metabolic encephalopathy; E87.20 Acidosis, unspecified; R18.8 Other ascites; J90 Pleural effusion, not elsewhere classified; K76.82 Hepatic encephalopathy; K74.60 Unspecified cirrhosis of liver; I10 Essential (primary) hypertension; I95.89 Other hypotension; Z79.899 Other long term (current) drug therapy; Z66 Do not resuscitate; Z91.148 Patient's other noncompliance with medication regimen for other reason
CPT/HCPCS: 36415; 70450; 71045; 80053; 80061; 81001; 82140; 82248; 83605; 83735; 84100; 84145; 84443; 85025; 85610; 85730; 87040; 92610; 93005; 96374; 99285; C1729; J0696; J2470; J3360; J7050; P9047; A9270

== ENCOUNTER 2024-11-12 08:41 | Inpatient (IN) | payer MEDICARE, OTHER, MEDICAID, SELFPAY ==
[2024-11-12] VITALS (7 sets, daily range): BP systolic 99–119; BP diastolic 53–68; PULSE 69–81; RESP 17–18; TEMP 36.4–36.6; O2SAT 97–100; BMI 27.3; BMI 23.3
--- NOTE | 2024-11-12 08:42 | XR_ITS ---
Examination: CT brain head without contrast. 2-D sagittal coronal reconstructions Date and time of exam:November 12, 2024 at 0908 hours Comparison November 07, 2024 INDICATIONS: Loss of consciousness episode today CTDI: vol (mGy):44.3 DLP: (mGycm):877 Technique: Multiple CT axial sections of the brain have been obtained, 5 mm slice thickness. Contrast has not been administered. 2-D sagittal, coronal reconstructions have been obtained Low dose protocols were performed. One or more of the following dose reduction techniques were used; automated exposure control, adjustment of the mA and/or KV according to patient size, use of iterative reconstruction technique. Findings: No significant ventricular enlargement. Intra-axial or extra-axial hemorrhage density is not seen. No mass effect or midline shift Basal cisterns are not remarkable. Fourth ventricle is midline. Cranial vault intact. Impression: Negative for acute hemorrhage, mass effect or midline shift Advise clinical correlation follow-up accordingly
--- NOTE | 2024-11-12 08:42 | EKG_ITS ---
[facility] Test Date: 2024-11-12 Pat Name: MAHNAZ MILLER Department: Room: - Gender: Male Analysis Director: : 1960 Requested By: Yasmany Ross Order Number: [id number] Reading MD: Yasmany Ross Measurements Intervals [place] Rate: 66 P: 249 DE: 123 QRS: 20 QRSD: 82 T: 29 QT: 397 QTc: 418 Interpretive Statements JUNCTIONAL RHYTHM NONSPECIFIC T-WAVE ABNORMALITY ABNORMAL RHYTHM ECG Compared to ECG 11/07/2024 12:30:35 Junctional rhythm now present Sinus rhythm no longer present T-wave abnormality still present /store/S0/[id number]/ecg/[id number].pdf
--- NOTE | 2024-11-12 08:42 | XR_ITS ---
Examination: AP chest single view Technique one AP portable sitting chest single view Exam date and time: November 12, 2024 0835 hours Comparison November 07, 2024 INDICATIONS: Chest pain today. FINDINGS: Normal heart size. The film is mislabeled right to left Significant left pleural fluid Mild vascular congestion IMPRESSION: Significant left pleural effusion
[2024-11-12 09:36] LABS: Base Excess, Venous 3 (-3-3); O2 Saturation, Venous 85 % (96-97); PCO2, Venous 30 mmHg (36-56); PO2, Venous 45 mmHg (15-58); pH, Venous 7.53 (7.33-7.66)
[2024-11-12 09:39] LABS: Basophils # (Auto) 0.1 Thou/mm3 (0.0-0.2); Basophils % (Auto) 2 % (0-2.5); Eosinophils # (Auto) 0.5 Thou/mm3 (0.0-0.5); Eosinophils % (Auto) 8 % (0-10); Hemoglobin 9.3 g/dL (13.5-16.0); Immature Granulocytes % (Auto) 0 % (0-0); Immature Granulocytes Auto 0.02 Thou/mm3 (0.00-0.00); Lymphocytes % (Auto) 16 % (10-50); Mean Corpuscular HGB Conc 33.2 g/dl (31.0-37.0); Mean Corpuscular Hemoglobin 29.5 pg (25.0-35.0); Mean Corpuscular Volume 89 fL (80-100); Monocytes # (Auto) 0.9 Thou/mm3 (0.0-0.8); Monocytes % (Auto) 15 % (0-12); Neutrophils # (Auto) 3.6 Thou/mm3 (1.8-7.7); Neutrophils % (Auto) 59 % (37-80); Nucleated Red Blood Cell % 0 /100 WBC (0); Platelet Count 102 Thou/mm3 (140-440); RDW Standard Deviation 46.2 fL (35.1-43.9); Red Blood Count 3.15 Miln/mm3 (4.50-5.90); White Blood Count 6.1 Thou/mm3 (3.8-10.6)
[2024-11-12 09:47] LABS: Collection Type, Urine Clean Catch
[2024-11-12 10:08] LABS: INR 1.1 (0.9-1.3); Prothrombin Time 12.2 Seconds (9.0-12.2)
[2024-11-12 10:11] LABS: Alanine Aminotransferase 12 U/L (10-49); Albumin, Serum 2.5 gm/dL (3.4-4.8); Albumin/Globulin Ratio 0.7 (1.2-2.2); Alcohol, Blood Medical < 3.0 mg/dL (0-10.0); Alkaline Phosphatase 110 U/L (46-116); Anion Gap 7 (7-16); Aspartate Amino Transferase 25 U/L (0-34); BUN/Creatinine Ratio 11 Ratio (12-20); Bilirubin,Total 1.4 mg/dL (0.3-1.2); Blood Urea Nitrogen 20 mg/dL (9-23); Calcium 8.3 mg/dL (8.3-10.6); Calcium (Corrected) 9.5 mg/dL (8.5-10.1); Carbon Dioxide 25.9 mMol/L (20.0-31.0); Chloride 106 mMol/L (98-107); Creatinine (Component) 1.8 mg/dL (0.6-1.3); Estimated Creatinine Clearance 39.1 mL/min (>60); Globulin 3.5 gm/dL (2.3-3.5); Glucose 119 mg/dL (74-106); Osmolality,Calculated 281 (275-295); Potassium 3.9 mMol/L (3.4-5.1); Procalcitonin 0.12 ng/ml (0.0-0.49); Sodium 139 mMol/L (136-145); Troponin I < 0.002 ng/mL (0.0-0.045); eGFR 41 See Note
[2024-11-12 10:12] LABS: Ammonia 158 uMol/L (11-32)
[2024-11-12 10:30] LABS: Amphetamine/Methamp Scrn,U Negative (Negative); Barbiturate Screen,Urine Negative (Negative); Benzodiazepines Screen,Urine Positive (Negative); Benzoylecgonine Screen, Ur Negative (Negative); Fentanyl Screen,Urine Negative (Negative); Opiate Screen,Urine Negative (Negative); THC Screen,Urine Negative (Negative)
[2024-11-12 10:41] LABS: Bacteria,Urine Rare; Bilirubin,Urine Negative (Negative); Blood,Urine 1+ (Negative); Clarity,Urine Clear (Clear/Hazy); Color,Urine Yellow (Lt Yel-Yel); Culture Indicated,Urine Not Indicated; Glucose, Urine Negative (Negative); Ketones,Urine Trace (Negative); Leukocyte Esterase,Urine Positive (Negative); Nitrite,Urine Negative (Negative); PH,Urine 5.5 (5.0-7.0); Protein,Urine Trace (Neg - Trace); RBC,Urine 2 /hpf (0-3); Specific Gravity,Urine 1.026 (1.001-1.035); Squamous Epithelial Cell,Urine 7 /hpf (0-5); WBC,Urine 4 /hpf (0-5)
[2024-11-12 10:44] LABS: B-Type Natriuretic Peptide 57 pg/mL (0-100)
[2024-11-12] MEDS: SODIUM CHLORIDE 0.9% 1000 ML 2,000 ML 150 ML IV (11:34)
--- NOTE | 2024-11-12 11:59 | PD.EDAMS ---
Altered Mental Status RME/HPI General Chief Complaint: Altered Mental Status Stated Complaint: BIBA ROM HOME FOR AMS W/ HX CIRROSIS Time Seen by Provider: 11/12/24 08:42 Arrival date/time: 11/12/24 08:41 RME / HPI RME / HPI narrative: DR. ROSS MAIN ED EVALUATION: 64 year old male with past medical history significant for end-stage liver disease, cirrhosis, abdominal ascites requiring frequent paracentesis presents to the Emergency Department [facility] from home with complaint of altered mental status today. Patient was weak, confused, and agitated. No further history at this time. Related Data Home Medications ?Medication ?Instructions ?Recorded ?Confirmed levothyroxine 25 mcg tablet 25 mcg PO QDAY 10/19/19 01/26/24 Held on 11/09/24. Instructions: until seen by hospice furosemide 20 mg tablet 20 mg PO BID 01/26/24 01/26/24 Held on 11/09/24. Instructions: hold until seen by hospice pantoprazole 40 mg tablet,delayed 40 mg PO QDAY 01/26/24 01/26/24 release Previous Rx's ?Medication ?Instructions ?Recorded lactulose 20 gram oral packet 20 g PO TID 1 month #15 ea 11/09/24 (Kristalose) midodrine 5 mg tablet 10 mg (2 x 5 mg) PO TID 1 month 11/09/24 #180 tabs Allergies Allergy/AdvReac Type Severity Reaction Status Date / Time No Known Allergies Allergy Verified 01/26/24 09:03 Review of Systems Review of Systems ROS Unobtainable: unobtainable due to mental status Past Medical History Past Medical History NEUROLOGIC: Positive Neurological Disorders (SLURRED SPEECH AFTER PARACENTESIS- RESOLVED) CARDIAC: Positive Cardiac Disorders and Hypercholesterolemia RESPIRATORY: Positive Chronic Obstructive Pulmonary Disease (COPD) (DENIES) and Asthma (IN THE PAST, DENIES AT THIS TIME) GASTROINTESTINAL: Positive Gastrointestinal Disorders, Gall Bladder Disease (HAD SURGERY), Esophageal Varices (LIVER FAILURE), Diverticulosis and Gastroesophageal Reflux Disease MUSCULOSKELETAL: Positive Musculoskeletal Disorders and Degenerative Disk Disease ENDOCRINE: Positive Endocrine Disorders and Hypothyroidism OTHER HISTORY: Positive Chicken Pox Family History FAMILY HISTORY: Positive Family Cardiac Disorders, Family Gastrointestinal Problems, Family Cancer and Family Surgery Surgical History SURGICAL: Positive Tonsillectomy Social History SMOKING STATUS: Unknown if ever smoked SUBSTANCE USE: does not use ALCOHOL: Never ED Exam Narrative Physical exam: Physical Exam: General: The vital signs were reviewed. Patient is in the ambulance bay yelling cussing obviously confused gives eye contact his airway is patent does not appear to be any respiratory distress. Apparent circulatory problems. Head & Scalp: Normocephalic, atraumatic. Face: Appears normal and is without lesions, deformity. Ears: Left external pinna appears normal. Right external pinna appears normal. Eyes: The sclera is anicteric. No obvious photophobia. The Left and Right Orbit/Lid/Conjunctiva appears normal without swelling, discoloration or injection. Nose: The nose is without deformity, discharge or tenderness; Throat: Appears normal. The mucous membranes are pink and moist without exudates, redness or mass seen. The tongue appears normal. Neck: The neck is supple and no apparent mass or adenopathy. Chest: The chest wall is normal in size and symmetry and has no chest wall tenderness or crepitus. The patient displays normal ventilator effort without retractions, accessory muscle use and has adequate air movement bilaterally with no wheezes and no rales. Cardiovascular: Regular rate and rhythm; No murmurs, rubs, or gallops; Gastrointestinal: The abdomen appears normal. No obvious hernias or mass. The abdomen is soft and benign, non-distended, with no pain, no guarding and no rebound tenderness. Bowel sounds are present and normal sounding. No CVA tenderness. Genitourinary: Back/Spine: Normal inspection Extremities/Musculoskeletal/lymphatic: The bilateral upper and lower extremities are warm. There is no evidence of arterial insufficiency. There is no evidence of venous insufficiency/edema. The patient spontaneously moves bilateral upper and lower extremities with no pain and no limitation of movement. There is no apparent, injury or trauma. Skin: Has obvious spider angiomata and has a history of liver disease. The skin is warm, dry and intact. No rashes. No petechia. No purpura. No abnormal bruising. The color is appropriate with no cyanosis. Mental status/Psychiatric: Mental status is confused agitated cussing evident this is a change in from his normal calm mental state. Neurological: The patient is awake, alert, interactive, patient moves upper and lower extremities equally with no focal deficits as mentioned he is cussing uncooperative not physically threatening but clearly confused. Course Quality Measures none Orders Category Date Time Status Bedside Blood Glucose NOW Care 11/12/24 08:42 Active EKG (ED ONLY) *Do not use* NOW Care 11/12/24 08:[address] head/brain wo con Stat Exams 11/12/24 08:42 Completed EKG (ED Only) Stat Exams 11/12/24 08:42 Draft XR chest 1V portable Stat Exams 11/12/24 08:42 Completed Alcohol, Blood Medical Stat Lab 11/12/24 09:25 Completed Ammonia Stat Lab 11/12/24 09:25 Completed B-Type Natriuretic Peptide Stat Lab 11/12/24 09:25 Completed Blood Culture (Lab) Stat Lab 11/12/24 09:20 Received CBC Stat Lab 11/12/24 09:25 Completed Comprehensive Metabolic Panel Stat Lab 11/12/24 09:25 Completed Drug Screen,Urine Stat Lab 11/12/24 09:02 Completed Lactate (Lactic Acid) Stat Lab 11/12/24 09:25 Completed Procalcitonin Stat Lab 11/12/24 09:25 Completed Prothrombin Time with INR Stat Lab 11/12/24 09:25 Completed Troponin I Stat Lab 11/12/24 09:25 Completed Type and Screen Stat Lab 11/12/24 09:25 Completed Urinalysis, C/S if Indicated Stat Lab 11/12/24 09:02 Completed Venous Blood Gas Stat Lab 11/12/24 09:25 Completed LORazepam [Ativan Inj] Med 11/12/24 13:41 Discontinued 1 mg IVP X1 ONE Sodium Chloride 0.9% 1000 ml [Ns] 2,000 ml Med 11/12/24 08:42 Discontinued IV 150 mls/hr Vital Signs Vital signs: Vital Signs Temperature 97.6 F 11/12/24 09:08 Pulse Rate 70 11/12/24 09:08 Respiratory Rate 18 11/12/24 09:08 Blood Pressure 99/59 L 11/12/24 09:08 Pulse Oximetry (%) 100 11/12/24 09:08 Oxygen Delivery Method Room Air 11/12/24 09:08 Altered Mental Status MDM Narrative MDM Narrative:: Patient presents emergency room with confusion weakness change in mental status and history of liver disease and supposedly has taken his lactulose without missing any doses. Today he is combative agitated and medical workup was initiated which reveals white count of 6.1 hemoglobin 9.3 which is close to his baseline anemia. Platelet count is low at 102 PT is 12.2 INR is 1.1 pH is 7.53 electrolytes are within normal is BUN is 20 creatinine is elevated 1.8 which is baseline. Total bilirubin is 1.4 and ammonia is elevated at 158 which is the highest it has been i compared to the 2 previous ammonia's. There is only this patient's got hyperammonemia secondary to liver insufficiency and will admit. His urine came back negative his drug screen is positive for benzos CT of the head was negative and chest x-ray right pleural effusion no infiltrate otherwise normal heart Hospitalist was called spoke with Dr. Almaraz and they will admit to start out further. I, Shaista Mcgee am scribing for and in the presence of Dr. Ross. Patient data External records reviewed:: EMS form Clinical information provided by:: EMS Social determinants that could affect healthcare access:: none Patient has the following chronic illnesses:: end-stage liver disease, cirrhosis, abdominal ascites requiring frequent paracentesis How is presenting disease/condition affected by chronic disease/condition?: exacerbated by Evaluation data The following diagnostics were reviewed and interpreted by me:: lab results, radiology exam(s) and EKG tracing(s) (EKG#1: EKG at 0928 hours. Interpreted by me: junctional rhythm, rate 66, no STEMI) Lab and/or radiology exams considered but not ordered:: none Interpretation Summary: See above under MDM narrative. RADIOLOGY Procedure(s): XR chest 1V portable Accession Number(s): [id number] cc: Yasmany Ross MD; Tavo Joya MD~ Examination: AP chest single view Technique one AP portable sitting chest single view Exam date and time: November 12, 2024 0835 hours Comparison November 07, 2024 INDICATIONS: Chest pain today. FINDINGS: Normal heart size. The film is mislabeled right to left Significant left pleural fluid Mild vascular congestion IMPRESSION: Significant left pleural effusion Dictated By: Tavo Joya MD Procedure(s): CT head/brain wo con Accession Number(s): [id number] cc: Yasmany Ross MD; Tavo Joya MD~ Examination: CT brain head without contrast. 2-D sagittal coronal reconstructions Date and time of exam:November 12, 2024 at 0908 hours Comparison November 07, 2024 INDICATIONS: Loss of consciousness episode today CTDI: vol (mGy):44.3 DLP: (mGycm):877 Technique: Multiple CT axial sections of the brain have been obtained, 5 mm slice thickness. Contrast has not been administered. 2-D sagittal, coronal reconstructions have been obtained Low dose protocols were performed. One or more of the following dose reduction techniques were used; automated exposure control, adjustment of the mA and/or KV according to patient size, use of iterative reconstruction technique. Findings: No significant ventricular enlargement. Intra-axial or extra-axial hemorrhage density is not seen. No mass effect or midline shift Basal cisterns are not remarkable. Fourth ventricle is midline. Cranial vault intact. Impression: Negative for acute hemorrhage, mass effect or midline shift Advise clinical correlation follow-up accordingly Dictated By: Tavo Joya MD Medications / Prescriptions Medications or Prescriptions considered but not ordered:: none Medication administrations:: Medication Administration History Sodium Chloride (Ns) 2,000 mls @ 40 mls/hr IV .Q24H ONE Stop: 11/13/24 08:41 Lactulose (Lactulose Syrup 20 Gm/30 Ml Udc) 20 gm PO TID ONDINA; Protocol Stop: 12/12/24 21:59 Midodrine (Midodrine 5 Mg Tablet) 10 mg PO TID ONDINA Stop: 12/12/24 13:59 Ondansetron HCl (Ondansetron Inj 2 Mg/Ml Inj 2 Ml) 4 mg IV Q6H PRN; Protocol PRN Reason: NAUSEA OR VOMITING Stop: 12/12/24 13:45 Pantoprazole Sodium (Pantoprazole Inj 40 Mg Vial) 40 mg IVP QDAY ONDINA Stop: 12/12/24 13:59 Discontinued Medications Sodium Chloride (Ns) 2,000 mls @ 150 mls/hr IV .[id number] ONE Stop: 11/12/24 22:01 Last Admin: 11/12/24 11:34 Dose: 150 mls/hr Documented By: RD Lactulose (Lactulose Syrup 20 Gm/30 Ml Udc) 30 gm ND X1 ONE; Protocol Stop: 11/12/24 14:04 Lorazepam (Lorazepam 2 Mg/Ml Vial) 1 mg IVP X1 ONE Stop: 11/12/24 13:42 see above Consultations Consultation(s) initiated? (list below): Yes Consultation #1 (Physician, Specialty, Details): Discussed test HPI, PMHx, lab, radiology results and/or management with hospitalist. Will admit for further evaluation and management. Accepts patient for admission. Time: 13:46 Diagnosis Differential diagnosis altered mental status: alcoholic intoxication, altered mental status, dementia, subarachnoid hemorrhage and sepsis Most likely diagnosis given after review of the tests above:: See below Admission Indicated Admission indicated?: indicated Admission Request Was there a request for admission?: Yes Admission Attestation Admission request attestation: Discussed case with [] from Hospitalist service regarding admission. Discussed patients ED course, exam findings, labs, and radiology results. The Hospitalist [agrees,declines] to accept the patient for admission. Disposition Plan Disposition Plan: Admit Critical Care Time Critical Care Time Critical Care Time: Yes Total Critical Care Time (min.): 45 Attestation: The high probability of sudden, clinically significant deterioration in the patient's condition required the highest level of my preparedness to intervene urgently. The services I provided to this patient were to treat and/or prevent clinically significant deterioration. Services included the following: chart data review, reviewing nursing notes and/or old charts, documentation time, health management consultant collaboration regarding findings and treatment options, medication orders and management, direct patient care, vital sign assessments and ordering, interpreting and reviewing diagnostic studies and lab tests. Aggregate critical care time includes only time during which I was engaged in work directly related to the patient's care, as described above, whether at bedside or elsewhere in the Emergency Department. It did not include time spent performing other reported procedures or the services of residents, students, nurses or physician assistants. Discharge Plan Plan Patient Disposition: Admit Acute Care w/in Hospital Disposition Comment: Hospitalist to admit Problem List Clinical Impression: Hyperammonemia, End stage liver disease, Combative behavior, Acute confusion, Pleural effusion on right
--- NOTE | 2024-11-12 14:22 | ESHP_ITS ---
<Statement entered by Mirna Go MD - 11/12/24 15:30> Mr. Martinez is a 64-year-old man with past medical history of end-stage liver disease on hospice, who came to the ED brought by the due to altered mental status. Patient was just seen on 11/07/24 for Acute hepatic encephalopathy due to hyperammonemia in the setting of lactulose noncompliance. Patient again returned to the ED again 3 days later with similar symptoms of AMS and generalized weakness. Patient will be admitted to hospital for further management and ultimately for SNF placement. Labs significant for ammonia of 158. ED gave IV Lorazepam x 1 despite confusion state. Will continue to give Lactulose OH and titrate to 2-3 BMs. Mirna Go MD PGY2 <Statement entered by Kathe Schmitz MD - 11/12/24 14:38> I discussed with and supervised the rn international physician who took care of this patient. I personally saw and examined the patient and discussed the assessment and plan with the entire medicine team, including my attending Dr. Art, I agree with the assessment and plan as documented below Patient seen and examined at bedside today. Labs and imaging reviewed. 64-year-old man with past medical history of end-stage liver disease previously on hospice, who came to the ED brought by the due to altered mental status. Patient has become altered due to is very difficult for the to take care of him at home and provide his medications for which patient will need to be admitted for SNF placement. Patient denied to take his lactulose and became altered for which she decided to bring him to the ED. On admission p vital signs were unremarkable labs were significant ammonia 158. ED course patient received IV lorazepam x 1. Patient will be admitted for further treatment and management of acute encephalopathy most likely secondary to hyperammonemia in the setting of end-stage liver disease Kathe Schmitz MD PGY-3 Disclaimer: Despite multiple revisions, due to the dictation software being used, the document bellow may not be free of grammatical errors including phonetic/typographic errors. However, this does not deter from our commitment to providing health care in the patient's best interest in mind. Documentation for date of: 11/12/24 HPI History of Present Illness Chief complaint: AMS History of present illness: Patient is altered and unable to procide history, history taken from chart review and who was at bedside. 64-year-old male past medical history of end-stage liver disease, recurrent paracentesis, hypotension on midodrine presented to the ED due to altered mental status. According to the patient's symptoms started around few days ago patient does is not compliant with his lactulose. Chronic to the life patient also has been vomiting denies any blood at the time, only food particles. Family also states patient is having shaking in the hands and itchiness around his whole body. Patient is supposed to have outpatient paracentesis last week however it was canceled due to unknown reasons. Has usually paracentesis done in [place], however was not able to last week due to some missing labs apperantly according to the . Patient will be admitted for acute encephalopathy most likely secondary to hyperammonemia in the setting of end-stage liver disease. ED course: Vitals on arrival 119/66 BP, HR 69, RR 20, temp 97.6, O2 sat 100% on room air. Labs significant for hemoglobin 9.3, platelets 102, CHEM panel significant for creatinine 1.8, lactic acid 2.0, T. bili 1.4, direct bilirubin 0.7, ammonia 158, in the ED patient received 2L IVFs PMHx: End-stage liver disease, hypertension on midodrine SX Hx: Tonsillectomy Social Hx: Denies alcohol, denies cigarettes, denies illicit drug use FHx: unknown Review of Systems Review of Systems ROS Unobtainable: unobtainable due to mental status Exam Vital Signs Temp Pulse Resp BP Pulse Ox O2 Del Method 97.6 F 69 18 119/68 100 Nasal Cannula 11/12/24 09:08 11/12/24 10:42 11/12/24 09:08 11/12/24 10:42 11/12/24 10:42 11/12/24 10:42 Narrative Exam Physical Exam GENERAL: NAD, GCS 11, arousable to speech unable to open eyes, asterexis HEENT: Moist mucosa, rhinopymia CARDIO: Heart RRR, no obvious murmurs PULM: No noted coughing/dyspnea diminished lung sounds b/L GI: Abdomen soft, distended, no pain on palpation. SKIN/MSK/EXT: No wounds/rashes/edema/amputations, no pain on palpation. Pedal pulses present B/L Results: Labs 11/12/24 09:25 11/12/24 09:25 Labs: Short CBC 11/12/24 Range/Units 09:25 WBC 6.1 (3.8-10.6) Thou/mm3 Hgb 9.3 L (13.5-16.0) g/dL Hct 28.0 L (41.0-53.0) % Plt Count 102 L (140-440) Thou/mm3 BMP 11/12/24 09:25 Sodium 139 Potassium 3.9 Chloride 106 Carbon Dioxide 25.9 BUN 20 Creatinine 1.8 H Glucose 119 H Calcium 8.3 Cardiac Enzymes 11/12/24 Range/Units 09:25 Troponin I < 0.002 (0.0-0.045) ng/mL Liver Function 11/12/24 Range/Units 09:25 Total Bilirubin 1.4 H (0.3-1.2) mg/dL AST 25 (0-34) U/L ALT 12 (10-49) U/L Alkaline Phosphatase 110 (46-116) U/L Albumin 2.5 L (3.4-4.8) gm/dL Urine 11/12/24 Range/Units 09:02 Urine Color Yellow (Lt Yel-Yel) Urine Clarity Clear (Clear/Hazy) Urine pH 5.5 (5.0-7.0) Ur Specific Charlo 1.026 (1.001-1.035) Urine Protein Trace (Neg - Trace) Urine Glucose (UA) Negative (Negative) ABG Interpretation ABG results: 11/12/24 09:25 VBG pH 7.53 VBG pCO2 30 L VBG pO2 45 VBG Base Excess 3 Quality Measures Quality Measures VTE prophylaxis Advance care planning discussed with:: patient Medications Home Medications and Allergies Home Medications ?Medication ?Instructions ?Recorded ?Confirmed ?Type levothyroxine 25 mcg tablet 25 mcg PO QDAY 10/19/19 History Held on 11/09/24. Instructions: until seen by hospice furosemide 20 mg tablet 20 mg PO BID 01/26/24 History Held on 11/09/24. Instructions: hold until seen by hospice pantoprazole 40 mg tablet,delayed 40 mg PO QDAY 01/26/24 History release Allergies Allergy/AdvReac Type Severity Reaction Status Date / Time No Known Allergies Allergy Verified 01/26/24 09:03 Visit Medications Sodium Chloride (Ns) 2,000 mls @ 40 mls/hr IV .Q24H ONE Stop: 11/13/24 08:41 Lactulose (Lactulose Syrup 20 Gm/30 Ml Udc) 20 gm PO TID ONDINA; Protocol Stop: 12/12/24 21:59 Midodrine (Midodrine 5 Mg Tablet) 10 mg PO TID ONDINA Stop: 12/12/24 13:59 Ondansetron HCl (Ondansetron Inj 2 Mg/Ml Inj 2 Ml) 4 mg IV Q6H PRN; Protocol PRN Reason: NAUSEA OR VOMITING Stop: 12/12/24 13:45 Pantoprazole Sodium (Pantoprazole Inj 40 Mg Vial) 40 mg IVP QDAY ONDINA Stop: 12/12/24 13:59 Discontinued Medications Sodium Chloride (Ns) 2,000 mls @ 150 mls/hr IV .[id number] ONE Stop: 11/12/24 22:01 Last Admin: 11/12/24 11:34 Dose: 150 mls/hr Lactulose (Lactulose Syrup 20 Gm/30 Ml Udc) 30 gm OH X1 ONE; Protocol Stop: 11/12/24 14:04 Lorazepam (Lorazepam 2 Mg/Ml Vial) 1 mg IVP X1 ONE Stop: 11/12/24 13:42 Assessment & Plan Plan 64-year-old male past medical history of end-stage liver disease, recurrent paracentesis, hypotension on midodrine presented to the ED due to altered mental status. According to the patient's symptoms started around few days ago patient does is not compliant with his lactulose. Chronic to the life patient also has been vomiting denies any blood at the time, only food particles. Family also states patient is having shaking in the hands and itchiness around his whole body. Patient is supposed to have outpatient paracentesis last week however it was canceled due to unknown reasons. Has usually paracentesis done in [place], however was not able to last week due to some missing labs apperantly according to the . Patient will be admitted for acute encephalopathy most likely secondary to hyperammonemia in the setting of end-stage liver disease. #Acute encephalopathy likely secondary to #Hyperammonemia in the setting of #End-stage liver disease Patient has a GCS of 11 Per the at bedside patient is not compliant with his medications On physical examination patient is this has abdominal distention with asterixis on admission patient was was having abdominal distention which required paracentesis had 6 L of fluid removed and was given [address] head negative for bleed ? Lactulose TID goal 3BM per day - NPO - PPI #Hx of Hypotension Likely in the setting of end-stage liver disease ? Started midodrine 5 mg 3 times daily #Lactic acidosis likely secondary to ESLD - monitor for now continue to trend Case discussed with my seniors Dr. Go PGY-2, Dr. Schmitz PGY-[address] Rubens Swenson MD PGY-1 Disposition: tele Fluids: None Feeding: NPO Thrombo prophylaxis: SCDs Gastric Ulcer prophylaxis: Pantoprazole CODE STATUS: DNR Attending Provider Attestation/Addendum I have examined the patient, reviewed labs and imaging findings, discussed the case with the resident(s), and reviewed entered orders. I agree with the plan of care as outlined in this note, with these additional summaries/recommendations: Patient seen at bedside. Patient was just discharged on home hospice from the hospital on 11/09/2024 for end-stage liver disease and acute hepatic encephalopathy. Patient now presenting back to the hospital with acute hepatic encephalopathy again. Unclear if patient was receiving lactulose at home. Ammonia level impressively 158. CT head negative for acute hemorrhage, mass effect or midline shift. Patient is currently A&O x 1. Bedside swallow evaluation ordered. Start lactulose per rectum and once mentation more improved we will transition to oral lactulose and rifaximin. Patient has underlying CKD with creatinine 1.8 and BUN 20 on admission which is relatively close to patient's baseline. Renally dose medications and avoid nephrotoxic agents. Patient will most likely need to be discharged to SNF on hospice once medically cleared as it does not appear he is suitable for home hospice given his readmission. Start non-Pharm measures to prevent delirium. Repeat hematology and chemistry panel in AM. Patient is DNR. Dr. Rubens MD
[2024-11-12] MEDS: SODIUM CHLORIDE 0.9% 1000 ML 2,000 ML 40 ML IV (18:59)
[2024-11-12] MEDS: LACTULOSE SYRUP 20 GM/30 ML UDC 30 GM PR (19:08)
[2024-11-12] MEDS: LACTULOSE SYRUP 20 GM/30 ML UDC PO (21:01)
[2024-11-13] VITALS (11 sets, daily range): BP systolic 100–129; BP diastolic 47–75; PULSE 67–95; RESP 17–18; TEMP 36.7–37.2; O2SAT 98–100
[2024-11-13 05:54] LABS: Basophils # (Auto) 0.1 Thou/mm3 (0.0-0.2); Basophils % (Auto) 1 % (0-2.5); Eosinophils # (Auto) 0.4 Thou/mm3 (0.0-0.5); Eosinophils % (Auto) 7 % (0-10); Hematocrit 23.9 % (41.0-53.0); Immature Granulocytes % (Auto) 0 % (0-0); Immature Granulocytes Auto 0.02 Thou/mm3 (0.00-0.00); Lymphocytes % (Auto) 20 % (10-50); Mean Corpuscular HGB Conc 32.6 g/dl (31.0-37.0); Mean Corpuscular Hemoglobin 29.2 pg (25.0-35.0); Mean Corpuscular Volume 90 fL (80-100); Monocytes # (Auto) 0.6 Thou/mm3 (0.0-0.8); Monocytes % (Auto) 13 % (0-12); Neutrophils # (Auto) 2.9 Thou/mm3 (1.8-7.7); Neutrophils % (Auto) 58 % (37-80); Nucleated Red Blood Cell % 0 /100 WBC (0); Platelet Count 117 Thou/mm3 (140-440); RDW Standard Deviation 46.5 fL (35.1-43.9); Red Blood Count 2.67 Miln/mm3 (4.50-5.90); White Blood Count 4.9 Thou/mm3 (3.8-10.6)
[2024-11-13] MEDS: MIDODRINE 5 MG TABLET 10 MG PO ×2 (06:00→13:48)
[2024-11-13] MEDS: LACTULOSE SYRUP 20 GM/30 ML UDC PO (06:00)
[2024-11-13 06:15] LABS: Hemoglobin 7.8 g/dL (13.5-16.0)
[2024-11-13 06:17] LABS: Alanine Aminotransferase 14 U/L (10-49); Albumin, Serum 2.2 gm/dL (3.4-4.8); Albumin/Globulin Ratio 0.7 (1.2-2.2); Alkaline Phosphatase 77 U/L (46-116); Anion Gap 6 (7-16); Aspartate Amino Transferase 49 U/L (0-34); BUN/Creatinine Ratio 12 Ratio (12-20); Bilirubin,Total 1.8 mg/dL (0.3-1.2); Blood Urea Nitrogen 19 mg/dL (9-23); Calcium 8.1 mg/dL (8.3-10.6); Calcium (Corrected) 9.5 mg/dL (8.5-10.1); Carbon Dioxide 24.9 mMol/L (20.0-31.0); Chloride 113 mMol/L (98-107); Creatinine (Component) 1.6 mg/dL (0.6-1.3); Estimated Creatinine Clearance 45.4 mL/min (>60); Globulin 3.2 gm/dL (2.3-3.5); Glucose 81 mg/dL (74-106); Osmolality,Calculated 288 (275-295); Phosphorous 3.6 mg/dL (2.4-5.1); Potassium 4.3 mMol/L (3.4-5.1); Sodium 144 mMol/L (136-145); Total Protein 5.4 gm/dL (5.7-8.2); eGFR 47 See Note
--- NOTE | 2024-11-13 08:39 | EKG_ITS ---
[facility] Test Date: 2024-11-13 Pat Name: MAHNAZ MILLER Department: Room: 54A Gender: Male Communications Program Manager: SAMUEL : 1960 Requested By: Tomas Swenson Order Number: [id number] Reading MD: Tomas Swenson Measurements Intervals [place] Rate: 69 P: NV: QRS: 28 QRSD: 78 T: 30 QT: 400 QTc: 429 Interpretive Statements SUPRAVENTRICULAR RHYTHM NONSPECIFIC T-WAVE ABNORMALITY Compared to ECG 11/12/2024 09:28:12 Supraventricular rhythm now present Junctional rhythm no longer present T-wave abnormality still present /store/S0/[id number]/[id number].pdf
[2024-11-13] MEDS: PANTOPRAZOLE INJ 40 MG VIAL IVP (09:36)
[2024-11-13] MEDS: LACTULOSE SYRUP 20 GM/30 ML UDC 30 GM PO ×3 (10:46→21:54)
--- NOTE | 2024-11-13 11:45 | XR_ITS ---
Examination: Abdomen sonogram, Limited Date and time of exam: November 13, 2024 1210 hours INDICATIONS: Abdominal distention this week Technique: Real-time salmon scale transabdominal sonographic images of the or quadrants abdomen obtained. Findings: Moderate ascites IMPRESSION: Moderate ascites
--- NOTE | 2024-11-13 15:22 | ESPR_ITS ---
<Statement entered by Mirna Go MD - 11/13/24 16:13> Patient seen and examined at bedside. Patient's altered mentation significantly improved to alert and oriented x 2. Patient is tolerating p.o. lactulose as well as diet. Will order abdominal ultrasound for possible paracentesis prior to discharge to SNF. Patient will still go home with hospice on hospice but to [facility] facility. Will continue with lactulose p.o. 3 times daily and titrate 2-3 bowel movements daily. I discussed with and supervised the internet project manager physician who took care of this patient. I personally saw and examined the patient and discussed the assessment and plan with the entire medicine team, including my attending , I agree with most of the assessment and plan as documented below Mirna Go M.D. PGY-2 Disclaimer: Despite multiple revisions, due to the dictation software being used, the document bellow may not be free of grammatical errors including phonetic/typographic errors. However, this does not deter from our commitment to providing health care in the patient's best interest in mind. <Statement entered by Kathe Schmitz MD - 11/13/24 15:34> I discussed with and supervised the internet project manager physician who took care of this patient. I personally saw and examined the patient and discussed the assessment and plan with the entire medicine team, including my attending Dr. Art, I agree with the assessment and plan as documented below Patient seen and examined at bedside today. Labs and imaging reviewed. No overnight acute events Today at the bedside patient is AO x 2, respond to question properly, tolerating p.o. with family member at the bedside that she endorsed that when he is ready to be discharged will like the patient to be placed in SNF, will increase lactulose to 30 mg p.o. 3 times daily and abdominal ultrasound was ordered for possible paracentesis. Case management is informed about the case and patient will need 3 midnights before being able to be discharged. Kathe Schmitz MD PGY-3 Disclaimer: Despite multiple revisions, due to the dictation software being used, the document bellow may not be free of grammatical errors including phonetic/typographic errors. However, this does not deter from our commitment to providing health care in the patient's best interest in mind. Documentation for date of: 11/13/24 Subjective Subjective Interval history: Patient seen today at the bedside fine awake, alert, oriented x 2, name and place. No overnight events reported. Significant improvement in mental status compared to previous examinations. Vital signs stable at this time. Received a call about the patient having atrial fibrillation, no RVR however and currently sinus rhythm. Labs stable at this time. Patient is pending SNF placement. Will continue current management with lactulose with goal 3 bowel movements per day. Exam Vital Signs Temp Pulse Resp BP Pulse Ox O2 Del Method 98.4 F 77 18 100/62 100 Room Air 11/13/24 11:58 11/13/24 13:48 11/13/24 11:58 11/13/24 13:48 11/13/24 11:58 11/13/24 11:58 Narrative Exam Physical Exam GENERAL: NAD, GCS 11, AAO x 2 HEENT: Moist mucosa, rhinopymia CARDIO: Heart RRR, no obvious murmurs PULM: No noted coughing/dyspnea diminished lung sounds b/L GI: Abdomen soft, distended, no pain on palpation. SKIN/MSK/EXT: No wounds/rashes/edema/amputations, no pain on palpation. Pedal pulses present B/L Objective Labs 11/14/24 04:42 11/14/24 04:42 Labs: Laboratory Results - last 24 hr 11/13/24 04:43 WBC 4.9 RBC 2.67 L Hgb 7.8 L Hct 23.9 L MCV 90 MCH 29.2 MCHC 32.6 RDW Std Deviation 46.5 H Plt Count 117 L Neut % (Auto) 58 Lymph % (Auto) 20 Vance % (Auto) 13 H Eos % (Auto) 7 Baso % (Auto) 1 Neut # (Auto) 2.9 Lymph # (Auto) 1.0 Vance # (Auto) 0.6 Eos # (Auto) 0.4 Baso # (Auto) 0.1 Immature Gran # (Auto) 0.02 H Absolute Nucleated RBC 0.00 Immature Gran % 0 Nucleated RBC % 0 Sodium 144 Potassium 4.3 Chloride 113 H Carbon Dioxide 24.9 Anion Gap 6 L BUN 19 Creatinine 1.6 H Estim Creat Clear Calc 45.4 L eGFR 47 L BUN/Creatinine Ratio 12 Glucose 81 Calculated Osmolality 288 Calcium 8.1 L Corrected Calcium 9.5 Phosphorus 3.6 Magnesium 2.0 Total Bilirubin 1.8 H AST 49 H ALT 14 Alkaline Phosphatase 77 D Total Protein 5.4 L Albumin 2.2 L Globulin 3.2 Albumin/Globulin Ratio 0.7 L ABG Interpretation ABG results: 11/12/24 09:25 VBG pH 7.53 VBG pCO2 30 L VBG pO2 45 VBG Base Excess 3 Quality Measures Quality Measures none Advance care planning discussed with:: patient Assessment & Plan Assessment Current Active Medications: Generic Name Dose Route Start Last Admin Trade Name Freq PRN Reason Stop Dose Admin Lactulose 30 gm 11/13/24 10:15 11/13/24 13:47 Lactulose Syrup 20 Gm/30 Ml Udc PO 12/13/24 10:14 30 gm TID ONDINA Administration Protocol Midodrine 10 mg 11/12/24 14:00 11/13/24 13:48 Midodrine 5 Mg Tablet PO 12/12/24 13:59 10 mg TID ONDINA Administration Ondansetron HCl 4 mg 11/12/24 13:46 Ondansetron Inj 2 Mg/Ml Inj 2 Ml IV 12/12/24 13:45 Q6H PRN NAUSEA OR VOMITING Protocol Pantoprazole Sodium 40 mg 11/12/24 14:00 11/13/24 09:36 Pantoprazole Inj 40 Mg Vial IVP 12/12/24 13:59 40 mg QDAY ONDINA Administration Plan 64-year-old male past medical history of end-stage liver disease, recurrent paracentesis, hypotension on midodrine presented to the ED due to altered mental status. According to the patient's symptoms started around few days ago patient does is not compliant with his lactulose. Chronic to the life patient also has been vomiting denies any blood at the time, only food particles. Family also states patient is having shaking in the hands and itchiness around his whole body. Patient is supposed to have outpatient paracentesis last week however it was canceled due to unknown reasons. Has usually paracentesis done in [place], however was not able to last week due to some missing labs apperantly according to the . Patient will be admitted for acute encephalopathy most likely secondary to hyperammonemia in the setting of end-stage liver disease. #Acute encephalopathy likely secondary to -improving #Hyperammonemia in the setting of #End-stage liver disease Patient has a GCS of 11 Per the at bedside patient is not compliant with his medications On physical examination patient is this has abdominal distention with asterixis on admission patient was was having abdominal distention which required paracentesis had 6 L of fluid removed and was given [address] head negative for bleed ? Lactulose TID goal 3BM per day - PPI #Hx of Hypotension Likely in the setting of end-stage liver disease ? On midodrine 10 mg 3 times daily Case discussed with my seniors Dr. Schmitz PGY-3, Dr. Go PGY-[address] Rubens Swenson MD PGY-1 Disposition: Med telemetry Fluids: None Feeding: regular Thrombo prophylaxis: SCDs Gastric Ulcer prophylaxis: Pantoprazole CODE STATUS: DNR Attending Provider Attestation/Addendum I have examined the patient, reviewed labs and imaging findings, discussed the case with the resident(s), and reviewed entered orders. I agree with the plan of care as outlined in this note, with these additional summaries/recommendations: Patient seen at bedside. No acute overnight events. Patient has had some improvement in his mental status since admission yesterday. He is now alert & oriented X 2. We will continue lactulose and titrate to 2-3 bowel movements per day. Resume rifamxin. Ammonia level was impressively elevated to [address] head negative for acute hemorrhage, mass effect or midline shift. Patient completed swallow evalulation and started on dysphagia 2 diet. Patient has underlying CKD with creatinine 1.6 and BUN 19 which is relatively close to patient's baseline. Renally dose medications and avoid nephrotoxic agents. Patient will be discharged to SNF on hospice once medically cleared as patients is unable to take care of him at home. Continue non-Pharm measures to prevent delirium. Repeat hematology and chemistry panel in AM. Patient is DNR. Dr. Rubens MD
--- NOTE | 2024-11-13 15:28 | PC.SS ---
SS spoke to patient's , Jackie, regarding discharge plans and history of patient. Patient's states patient was at home with [facility]. states patient recently fell at home and she could not get him up and called ambulance. prefers for patient to d/c to SNF with hospice. states patient receives paracentesis once a week. Patient's PCP: Dr. Jaziel Lugo. SS will send inquiry on [facility]. Preferred facility is [facility]. states if patient cannot go to SNF with hospice she would be okay with that temporarily. SS will attempt a hospice bed at facility. Alt medical decision maker: Jackie Martinez, ,
[2024-11-14] VITALS (13 sets, daily range): BP systolic 112–123; BP diastolic 52–68; PULSE 65–93; RESP 16–17; TEMP 36.2–37.4; O2SAT 96–99; BMI 23.4
[2024-11-14 05:54] LABS: Basophils # (Auto) 0.1 Thou/mm3 (0.0-0.2); Basophils % (Auto) 2 % (0-2.5); Eosinophils # (Auto) 0.5 Thou/mm3 (0.0-0.5); Eosinophils % (Auto) 8 % (0-10); Hematocrit 24.6 % (41.0-53.0); Immature Granulocytes % (Auto) 0 % (0-0); Immature Granulocytes Auto 0.02 Thou/mm3 (0.00-0.00); Lymphocytes # (Auto) 1.3 Thou/mm3 (1.0-4.8); Lymphocytes % (Auto) 21 % (10-50); Mean Corpuscular HGB Conc 32.5 g/dl (31.0-37.0); Mean Corpuscular Hemoglobin 29.6 pg (25.0-35.0); Mean Corpuscular Volume 91 fL (80-100); Monocytes # (Auto) 0.8 Thou/mm3 (0.0-0.8); Monocytes % (Auto) 12 % (0-12); Neutrophils # (Auto) 3.5 Thou/mm3 (1.8-7.7); Neutrophils % (Auto) 57 % (37-80); Nucleated Red Blood Cell % 0 /100 WBC (0); Platelet Count 87 Thou/mm3 (140-440); RDW Standard Deviation 47.1 fL (35.1-43.9); White Blood Count 6.2 Thou/mm3 (3.8-10.6)
[2024-11-14] MEDS: LACTULOSE SYRUP 20 GM/30 ML UDC 30 GM PO ×3 (06:07→22:25)
[2024-11-14 06:24] LABS: Alanine Aminotransferase 10 U/L (10-49); Albumin, Serum 2.1 gm/dL (3.4-4.8); Albumin/Globulin Ratio 0.7 (1.2-2.2); Alkaline Phosphatase 85 U/L (46-116); Anion Gap 7 (7-16); Aspartate Amino Transferase 31 U/L (0-34); BUN/Creatinine Ratio 11 Ratio (12-20); Bilirubin,Total 1.6 mg/dL (0.3-1.2); Blood Urea Nitrogen 17 mg/dL (9-23); Calcium (Corrected) 9.5 mg/dL (8.5-10.1); Carbon Dioxide 25.1 mMol/L (20.0-31.0); Chloride 111 mMol/L (98-107); Creatinine (Component) 1.6 mg/dL (0.6-1.3); Estimated Creatinine Clearance 45.4 mL/min (>60); Globulin 3.2 gm/dL (2.3-3.5); Glucose 84 mg/dL (74-106); Osmolality,Calculated 285 (275-295); Phosphorous 3.2 mg/dL (2.4-5.1); Potassium 3.7 mMol/L (3.4-5.1); Sodium 143 mMol/L (136-145); Total Protein 5.3 gm/dL (5.7-8.2); eGFR 47 See Note
[2024-11-14] MEDS: PANTOPRAZOLE INJ 40 MG VIAL IVP (08:42)
--- NOTE | 2024-11-14 10:37 | XR_ITS ---
Examination: Ultrasound-guided paracentesis Abdominal sonogram limited Date and time of exam: November 14, 2024 1212 hours INDICATIONS: Cirrhosis, increasing in size abdominal distention this week Informed consent provided. A timeout was completed verifying correct patient, procedure, site, positioning, and special adequate movement if applicable. Technique: Multiple sonographic images of the abdomen have been obtained. Appropriate area for paracentesis was marked. Local anesthesia is obtained with 1% lidocaine. Yueh catheter is successfully introduced. Findings: Abdominal sonographic images demonstrate sufficient ascitic fluid for paracentesis. After placing the Yueh catheter, 7200 cc of fluid were successfully removed. During and after completion of the procedure the patient appear in satisfactory and stable condition with no complications observed. Estimated blood loss 0 cc Impression: Abdominal ascites Successful ultrasound-guided paracentesis as described above
[2024-11-14] MEDS: rifaximin 550 MG TABLET PO ×2 (11:37→22:25)
--- NOTE | 2024-11-14 14:16 | ESPR_ITS ---
<Statement entered by Mirna Go MD - 11/14/24 15:33> I discussed with and supervised the internal medicine nurse physician who took care of this patient. I personally saw and examined the patient and discussed the assessment and plan with the entire medicine team, including my attending Dr. Art, I agree with the assessment and plan as documented below Patient is a 64-year-old male past medical history of end-stage liver disease, recurrent paracentesis, hypotension on midodrine presented to the ED due to altered mental status and admitted for acute hepatic encephalopathy in the setting of medication noncompliance and hyperammonemia. Patient seen and examined at bedside. Patient is A&O x 2 (name and place), and is tolerating Lactulose 30gm TID PO and had 3 BM yesterday. Will add rifaximin, and order US paracentesis for symptom relief. Anticipate discharge within 24-48 hours to [facility] pending authorization. Mirna Go, PGY-2 <Statement entered by Kathe Schmitz MD - 11/14/24 15:12> I discussed with and supervised the internal medicine nurse physician who took care of this patient. I personally saw and examined the patient and discussed the assessment and plan with the entire medicine team, including my attending Dr. Art, I agree with the assessment and plan as documented below No overnight acute events Family bedside patient is AO x 2, mildly confused, patient denied any acute complaints at this moment like chills, abdominal pain, headaches fever or any other associated symptoms. Abdominal ultrasound showed mild ascites otherwise the patient normally have weekly paracentesis for symptom relief, ultrasound guided paracentesis was ordered, rifaximin 550 p.o. twice daily . Case management is following up the case and if patient remains stable in the next 24-48 will be discharged to [facility]. Kathe Schmitz MD PGY-3 Disclaimer: Despite multiple revisions, due to the dictation software being used, the document bellow may not be free of grammatical errors including phonetic/typographic errors. However, this does not deter from our commitment to providing health care in the patient's best interest in mind. Documentation for date of: 11/14/24 Subjective Subjective Interval history: Patient seen today at the bedside found awake, alert, oriented x [address] No overnight events reported. Vital signs stable. Labs stable at this time. As patient's mental status has improved, will continue current management with lactulose, added rifaximin. As patient's abdomen continues to be distended and patient has weekly paracentesis, ordered ultrasound-guided paracentesis. Anticipate discharge in the next 24-48 hours Exam Vital Signs Temp Pulse Resp BP Pulse Ox O2 Del Method 98.2 F 80 17 123/68 96 Room Air 11/14/24 11:54 11/14/24 13:44 11/14/24 11:54 11/14/24 13:44 11/14/24 11:54 11/14/24 07:34 Narrative Exam Physical Exam GENERAL: NAD, GCS 11, AAO x 2 HEENT: Moist mucosa, rhinopymia CARDIO: Heart RRR, no obvious murmurs PULM: No noted coughing/dyspnea diminished lung sounds b/L GI: Abdomen soft, distended, no pain on palpation. SKIN/MSK/EXT: No wounds/rashes/edema/amputations, no pain on palpation. Pedal pulses present B/L Objective Labs 11/14/24 04:42 11/14/24 04:42 Labs: Laboratory Results - last 24 hr 11/14/24 04:42 WBC 6.2 RBC 2.70 L Hgb 8.0 L Hct 24.6 L MCV 91 MCH 29.6 MCHC 32.5 RDW Std Deviation 47.1 H Plt Count 87 L D Neut % (Auto) 57 Lymph % (Auto) 21 Whitley % (Auto) 12 Eos % (Auto) 8 Baso % (Auto) 2 Neut # (Auto) 3.5 Lymph # (Auto) 1.3 Whitley # (Auto) 0.8 Eos # (Auto) 0.5 Baso # (Auto) 0.1 Immature Gran # (Auto) 0.02 H Absolute Nucleated RBC 0.00 Immature Gran % 0 Nucleated RBC % 0 Sodium 143 Potassium 3.7 D Chloride 111 H Carbon Dioxide 25.1 Anion Gap 7 BUN 17 Creatinine 1.6 H Estim Creat Clear Calc 45.4 L eGFR 47 L BUN/Creatinine Ratio 11 L Glucose 84 Calculated Osmolality 285 Calcium 8.0 L Corrected Calcium 9.5 Phosphorus 3.2 Magnesium 2.0 Total Bilirubin 1.6 H AST 31 ALT 10 Alkaline Phosphatase 85 Total Protein 5.3 L Albumin 2.1 L Globulin 3.2 Albumin/Globulin Ratio 0.7 L ABG Interpretation ABG results: 11/12/24 09:25 VBG pH 7.53 VBG pCO2 30 L VBG pO2 45 VBG Base Excess 3 Quality Measures Quality Measures none Advance care planning discussed with:: patient Assessment & Plan Assessment Current Active Medications: Generic Name Dose Route Start Last Admin Trade Name Freq PRN Reason Stop Dose Admin Lactulose 30 gm 11/13/24 10:15 11/14/24 13:45 Lactulose Syrup 20 Gm/30 Ml Udc PO 12/13/24 10:14 30 gm TID ONDINA Administration Protocol Midodrine 10 mg 11/12/24 14:00 11/14/24 13:44 Midodrine 5 Mg Tablet PO 12/12/24 13:59 Not Given TID ONDINA Ondansetron HCl 4 mg 11/12/24 13:46 Ondansetron Inj 2 Mg/Ml Inj 2 Ml IV 12/12/24 13:45 Q6H PRN NAUSEA OR VOMITING Protocol Pantoprazole Sodium 40 mg 11/12/24 14:00 11/14/24 08:42 Pantoprazole Inj 40 Mg Vial IVP 12/12/24 13:59 40 mg QDAY ONDINA Administration Rifaximin 550 mg 11/14/24 10:45 11/14/24 11:37 Rifaximin 550 Mg Tablet PO 11/21/24 10:44 550 mg BID ONDINA Administration Plan 64-year-old male past medical history of end-stage liver disease, recurrent paracentesis, hypotension on midodrine presented to the ED due to altered mental status. According to the patient's symptoms started around few days ago patient does is not compliant with his lactulose. Chronic to the life patient also has been vomiting denies any blood at the time, only food particles. Family also states patient is having shaking in the hands and itchiness around his whole body. Patient is supposed to have outpatient paracentesis last week however it was canceled due to unknown reasons. Has usually paracentesis done in [place], however was not able to last week due to some missing labs apperantly according to the . Patient will be admitted for acute encephalopathy most likely secondary to hyperammonemia in the setting of end-stage liver disease. #Acute encephalopathy likely secondary to -improving #Hyperammonemia in the setting of #End-stage liver disease Patient has a GCS of 11 Per the at bedside patient is not compliant with his medications On physical examination patient is this has abdominal distention with asterixis on admission patient was was having abdominal distention which required paracentesis had 6 L of fluid removed and was given [address] head negative for bleed ? Started rifaximin ? Lactulose TID goal 3BM per day - PPI #Hx of Hypotension Likely in the setting of end-stage liver disease ? On midodrine 10 mg 3 times daily Case discussed with my seniors Dr. Schmitz PGY-3, Dr. Go PGY-[address] Rubens Swenson MD PGY-1 Disposition: Med telemetry Fluids: None Feeding: regular Thrombo prophylaxis: SCDs Gastric Ulcer prophylaxis: Pantoprazole CODE STATUS: DNR Attending Provider Attestation/Addendum I have examined the patient, reviewed labs and imaging findings, discussed the case with the resident(s), and reviewed entered orders. I agree with the plan of care as outlined in this note, with these additional summaries/recommendations: Patient seen at bedside. No acute overnight events. Patient is trending back to baseline mental status. We will continue lactulose and titrate to 2-3 bowel movements per day. Resume rifamxin. Ammonia level was impressively elevated to [address] head negative for acute hemorrhage, mass effect or midline shift. Patient completed swallow evaluation and started on dysphagia 2 diet. Patient has underlying CKD with creatinine 1.6 and BUN 17 which is relatively close to patient's baseline. Renally dose medications and avoid nephrotoxic agents. Patient went for his weekly paracentesis today 11/14/2024 and 7200cc fluid removed. We will give albumin replacement. Continue midodrine for chronic hypotension. Patient will be discharged to SNF on hospice once medically cleared as patients is unable to take care of him at home. Continue non- Pharm measures to prevent delirium. Repeat hematology and chemistry panel in AM. Patient is DNR. Dr. Rubens MD
--- NOTE | 2024-11-14 15:39 | PC.SS ---
Follow up note: updated [facility] and [facility] of patient status. [facility] is ready for patient. [facility] is inquiring if patient can d/c with a drain for his paracentesis. updated physician team. Patient will not be discharged with drain. Updted [facility] patient will be ready for d/c by . [facility] to arrange for o/p paracentesis.
[2024-11-15] VITALS: BP 111/62; PULSE 84; PULSE 89; RESP 17; TEMP 36.7; O2SAT 96
[2024-11-15] MEDS: ALBUMIN HUMAN 25% IVPB 25 GM/100 ML BTL IV (00:35)
[2024-11-15 04:00] VITALS: BP 98/56; PULSE 83; PULSE 85; RESP 17; TEMP 37.4; O2SAT 94
[2024-11-15 05:39] LABS: Basophils # (Auto) 0.1 Thou/mm3 (0.0-0.2); Basophils % (Auto) 1 % (0-2.5); Eosinophils # (Auto) 0.4 Thou/mm3 (0.0-0.5); Eosinophils % (Auto) 4 % (0-10); Hematocrit 22.9 % (41.0-53.0); Immature Granulocytes % (Auto) 0 % (0-0); Immature Granulocytes Auto 0.03 Thou/mm3 (0.00-0.00); Lymphocytes # (Auto) 1.4 Thou/mm3 (1.0-4.8); Lymphocytes % (Auto) 15 % (10-50); Mean Corpuscular HGB Conc 32.8 g/dl (31.0-37.0); Mean Corpuscular Hemoglobin 29.4 pg (25.0-35.0); Mean Corpuscular Volume 90 fL (80-100); Monocytes # (Auto) 0.9 Thou/mm3 (0.0-0.8); Monocytes % (Auto) 10 % (0-12); Neutrophils # (Auto) 6.1 Thou/mm3 (1.8-7.7); Neutrophils % (Auto) 69 % (37-80); Nucleated Red Blood Cell % 0 /100 WBC (0); Platelet Count 80 Thou/mm3 (140-440); Red Blood Count 2.55 Miln/mm3 (4.50-5.90); White Blood Count 8.9 Thou/mm3 (3.8-10.6)
[2024-11-15 05:53] LABS: Hemoglobin 7.5 g/dL (13.5-16.0)
[2024-11-15] MEDS: LACTULOSE SYRUP 20 GM/30 ML UDC 30 GM PO (06:14)
[2024-11-15 06:15] VITALS: BP 98/56; PULSE 85
[2024-11-15] MEDS: MIDODRINE 5 MG TABLET 10 MG PO (06:15)
[2024-11-15 06:32] LABS: Alanine Aminotransferase 9 U/L (10-49); Albumin, Serum 2.2 gm/dL (3.4-4.8); Albumin/Globulin Ratio 0.8 (1.2-2.2); Alkaline Phosphatase 66 U/L (46-116); Anion Gap 8 (7-16); Aspartate Amino Transferase 23 U/L (0-34); BUN/Creatinine Ratio 12 Ratio (12-20); Bilirubin,Total 1.7 mg/dL (0.3-1.2); Blood Urea Nitrogen 17 mg/dL (9-23); Calcium 8.4 mg/dL (8.3-10.6); Calcium (Corrected) 9.8 mg/dL (8.5-10.1); Carbon Dioxide 24.9 mMol/L (20.0-31.0); Chloride 108 mMol/L (98-107); Creatinine (Component) 1.4 mg/dL (0.6-1.3); Estimated Creatinine Clearance 50.2 mL/min (>60); Globulin 2.9 gm/dL (2.3-3.5); Glucose 91 mg/dL (74-106); Magnesium 1.8 mg/dL (1.6-2.6); Osmolality,Calculated 282 (275-295); Phosphorous 2.5 mg/dL (2.4-5.1); Potassium 3.7 mMol/L (3.4-5.1); Sodium 141 mMol/L (136-145); Total Protein 5.1 gm/dL (5.7-8.2); eGFR 55 See Note
[2024-11-15 07:59] VITALS: BP 95/54; PULSE 76; RESP 17; TEMP 37.2; O2SAT 92
[2024-11-15 08:00] VITALS: PULSE 76
--- NOTE | 2024-11-15 09:23 | PC.NURSE ---
Pt's Jackie informed me of updated #[phone]. FELIZ Baker notified and given new number.
[2024-11-15] MEDS: PANTOPRAZOLE INJ 40 MG VIAL IVP (10:04)
[2024-11-15] MEDS: rifaximin 550 MG TABLET PO (10:04)
--- NOTE | 2024-11-15 11:07 | PC.SS ---
Follow up note: SS attempted to contact [employer] multiple times. Reps state patient does not have coverage for [facility] [facility] transport. SS received [facility] for transport. 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 to [facility]
[2024-11-15 12:00] VITALS: BP 127/59; PULSE 81; RESP 17; TEMP 36.2; O2SAT 92
--- NOTE | 2024-11-15 15:05 | ESDS_ITS ---
<Statement entered by Davidson Freeman MD - 11/16/24 11:25> I have discussed and was present for the essential components of the history, physical examination, diagnosis, and treatment plan with the resident. I agree with the patient's care as documented by the resident and amended herein by me. Davidson Freeman MD FACP. Planned Discharge Date 11/15/24 DS: Providers Provider Date of admission: 11/12/24 13:46 Primary care physician: Physician No Primary/Family Admitting Provider: Yuval Art MD Attending Provider on Admission: Davidson Freeman MD Consults: 11/15/24 11:31 Referral Hospice Routine Comment: [facility] Attending Provider on DC: Davidson Freeman MD Discharging Provider: Tomas Swenson MD Anticipated date of discharge: 11/15/24 DS: Diagnosis Problem List Completed Was Problem List Reviewed/Reconciled?: Yes Hospital Course Hospital Course Hospital course: 64-year-old male past medical history of end-stage liver disease, recurrent paracentesis, hypotension on midodrine presented to the ED due to altered mental status. According to the patient's symptoms started around few days ago patient does is not compliant with his lactulose. Patient had recent admission for similar symptoms. Patient will be admitted for acute encephalopathy most likely secondary to hyperammonemia in the setting of end-stage liver disease. During hospital stay patient's home medication resumed including lactulose and patient's mentation improved significantly. Patient was also due to his weekly paracentesis and was done here during hospitalization where 7 L were removed and albumin was provided. At this time patient is medically stable for discharge. Patient will be discharged on hospice to halfway facility. ? Continue lactulose 30 g p.o. 3 times daily ? Take midodrine 10 mg p.o. 3 times daily ? Continue Protonix 40 mg p.o. daily ? Hold Lasix and Levothyroxine until follow-up with PCP and hospice ? Take a CMP in 1 week and follow-up with hospice and PCP - You will need weekly paracentesis to relieve fluid buildup in your abdomen Problem List: #Acute encephalopathy likely secondary to -improving #Hyperammonemia in the setting of #End-stage liver disease #Hx of Hypotension Case discussed with my seniors Dr. Carl PGY-[address] Lydia Swenson MD PGY-1 Status at Discharge Functional status at discharge: uses cane/walker Overall status at discharge: patient is back to baseline Time Spent with Patient Time attestation: Total time spent providing and/or coordinating discharge services: Time spent: Greater than 30 minutes Exam Vital Signs Temp Pulse Resp BP Pulse Ox O2 Del Method 97.2 F 81 17 127/59 L 92 L Room Air 11/15/24 12:00 11/15/24 12:11/15/24 12:11/15/24 12:11/15/24 12:11/15/24 12:00 Narrative Exam Physical Exam GENERAL: NAD, GCS 11, AAO x 2 HEENT: Moist mucosa, rhinopymia CARDIO: Heart RRR, no obvious murmurs PULM: No noted coughing/dyspnea diminished lung sounds b/L GI: Abdomen soft, distended, no pain on palpation. SKIN/MSK/EXT: No wounds/rashes/edema/amputations, no pain on palpation. Pedal pulses present B/L Discharge Plan Plan Patient Disposition: Xfer Skilled Nsg Fac (SNF) Disposition Comment: with [facility] Care Plan Goals: ? Continue lactulose 30 g p.o. 3 times daily ? Take midodrine 10 mg p.o. 3 times daily ? Continue Protonix 40 mg p.o. daily ? Hold Lasix and Levothyroxine until follow-up with PCP and hospice ? Take a CMP in 1 week and follow-up with hospice and PCP - You will need weekly paracentesis to relieve fluid buildup in your abdomen Prescriptions/Referrals Prescriptions/Med Rec: New Xifaxan 550 mg Tablet 550 mg PO BID 30 Days Qty: 60 0RF Continued pantoprazole 40 mg tablet,delayed release (DR/EC) 40 mg PO QDAY Patient Comments: TAKE ONE TABLET BY MOUTH EVERY DAY HEARTBURN FOR GASTRITIS midodrine 5 mg Tablet 10 mg PO TID 30 Days Qty: 180 0RF Changed lactulose [Kristalose] 20 gram packet 30 g PO TID 30 Days Qty: 15 1RF Held levothyroxine 25 mcg Tablet 25 mcg PO QDAY Hold Instructions: Resume on 11/22/24. Until seen by hospice furosemide 20 mg tablet 20 mg PO BID Hold Instructions: Resume on 11/22/24. Until seen by hospice Patient Comments: TAKE ONE TABLET BY MOUTH TWICE DAILY Referrals: No Primary/Family,Physician [Primary Care Provider] - Patient/Caregiver Discharge Instructions Education Materials: Paracentesis Dc Print Language: Greek Stand Alone Forms: Erika Award Info., Patient Portal Info Letter Discharge Order Discharge Orders: Discharge (Routine); Ordered 11/15/24 Ordered By: Mirna Go Quality Discharge Quality Measures VTE prophylaxis
== END 2024-11-15 14:10 | disposition skilled nursing facility (03) | DRG 442 ==
LOC: SERX 13:41 → SERHOLD 14:04 → S3NX 20:26
PROVIDERS: Student in an Organized Health Care Education/Training Program; Admitting Provider Student in an Organized Health Care Education/Training Program; Emergency Provider Emergency Medicine; Visit Provider Internal Medicine
DX: K72.10 Chronic hepatic failure without coma (principal); E87.20 Acidosis, unspecified; R18.8 Other ascites; J90 Pleural effusion, not elsewhere classified; K74.60 Unspecified cirrhosis of liver; K76.82 Hepatic encephalopathy; I95.89 Other hypotension; I48.91 Unspecified atrial fibrillation; I12.9 Hypertensive chronic kidney disease with stage 1 through stage 4 chronic kidney disease, or unspecified chronic kidney disease; Z91.148 Patient's other noncompliance with medication regimen for other reason; N18.9 Chronic kidney disease, unspecified; Z66 Do not resuscitate; Z79.899 Other long term (current) drug therapy
CPT/HCPCS: 36415; 70450; 71045; 76705; 80053; 80307; 80320; 81001; 82140; 82803; 83605; 83735; 83880; 84100; 84145; 84484; 85025; 85610; 86850; 86900; 86901; 87040; 93005; 93225; 96360; 96361; 99291; C1729; J2470; J7030; P9047; A9270; G0480

== ENCOUNTER 2025-01-01 07:02 | Inpatient (IN) | payer OTHER, MEDICAID, MEDICARE, SELFPAY ==
[2025-01-01] VITALS (10 sets, daily range): BP systolic 98–135; BP diastolic 47–73; PULSE 61–94; RESP 12–19; TEMP 35.5–36.9; O2SAT 97–100; BMI 28.2; BMI 23.1
--- NOTE | 2025-01-01 07:09 | EKG_ITS ---
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
--- NOTE | 2025-01-01 07:09 | PD.EDAMS ---
Altered Mental Status RME/HPI General Chief Complaint: Altered Mental Status Stated Complaint: AMS Time Seen by Provider: 01/01/25 07:21 Arrival date/time: 01/01/25 07:02 RME / HPI RME / HPI narrative: DR. JORDAN MAIN ED EVALUATION: 64 year old male with past medical history significant for end-stage liver disease, cirrhosis, abdominal ascites requiring frequent paracentesis, and history of lactulose non compliance presents to the Emergency Department [facility] from home with complaint of altered mentation. Per EMS, patients' family reports that patient is usually a GCS of 15 alert and oriented but today he was confused with a GCS of 112. Code Status: DNR with comfort measures only. Related Data Home Medications ?Medication ?Instructions ?Recorded ?Confirmed levothyroxine 25 mcg tablet 25 mcg PO QDAY 10/19/19 01/26/24 Held on 11/15/24. Instructions: Resume on 11/22/24. Until seen by hospice furosemide 20 mg tablet 20 mg PO BID 01/26/24 01/26/24 Held on 11/15/24. Instructions: Resume on 11/22/24. Until seen by hospice pantoprazole 40 mg tablet,delayed 40 mg PO QDAY 01/26/24 01/26/24 release Previous Rx's ?Medication ?Instructions ?Recorded lactulose 20 gram oral packet 30 g PO TID 1 month #15 ea 11/15/24 (Kristalose) Allergies Allergy/AdvReac Type Severity Reaction Status Date / Time No Known Allergies Allergy Verified 01/26/24 09:03 Review of Systems Review of Systems ROS Unobtainable: unobtainable due to mental status Past Medical History Past Medical History CARDIAC: Positive Cardiac Disorders and Hypercholesterolemia RESPIRATORY: Positive Chronic Obstructive Pulmonary Disease (COPD) and Asthma GASTROINTESTINAL: Positive Gastrointestinal Disorders, Gall Bladder Disease, Esophageal Varices, Diverticulosis and Gastroesophageal Reflux Disease MUSCULOSKELETAL: Positive Musculoskeletal Disorders and Degenerative Disk Disease ENDOCRINE: Positive Endocrine Disorders and Hypothyroidism OTHER HISTORY: Positive Chicken Pox Family History FAMILY HISTORY: Positive Family Cardiac Disorders, Family Gastrointestinal Problems, Family Cancer and Family Surgery; Negative Family Respiratory Disorders Surgical History SURGICAL: Positive Tonsillectomy Social History SMOKING STATUS: Unknown if ever smoked SUBSTANCE USE: does not use ALCOHOL: Never ED Exam Narrative Physical exam: GENERAL APPEARANCE: confused, well-developed, well-nourished, no acute distress, pale, unkempt VITALS: All vitals were reviewed and the pulse ox is 100% on room air, which is normal according to my interpretation. HEENT: Normocephalic, atraumatic; pupils equal, round, reactive to light; EOMI; mucous membranes pink, moist; oropharynx clear NECK: Supple LUNGS: CTABL; no wheezes, no rales, no rhonchi HEART: Regular rate, regular rhythm; normal S1, S2; no murmurs ABDOMEN: distended; normal BS; soft, no tenderness, no guarding, no rebound; no masses, no organomegaly, no hernia BACK: no CVA tenderness EXTREMITIES: atraumatic; no edema NEUROLOGIC: awake; confused; cranial nerves II-XII grossly intact; no focal sensory or motor deficits PSYCHIATRIC: appropriate mood and affect SKIN: warm, dry, normal color; no rashes Course Quality Measures none Orders Category Date Time Status Donor Services Specialist NOW Care 01/01/25 07:09 Active EKG (ED ONLY) *Do not use* NOW Care 01/01/25 07:09 Completed In and Out Catheter X1 Care 01/01/25 07:[address] head/brain wo con Stat Exams 01/01/25 07:27 Completed EKG (ED Only) Stat Exams 01/01/25 07:09 Draft XR chest 1V portable Stat Exams 01/01/25 07:09 Completed Alcohol, Blood Medical Stat Lab 01/01/25 07:38 Completed Ammonia Stat Lab 01/01/25 07:38 Completed B-Type Natriuretic Peptide Stat Lab 01/01/25 07:38 Completed Blood Culture (Lab) Stat Lab 01/01/25 07:38 Received CBC Stat Lab 01/01/25 07:38 Completed Comprehensive Metabolic Panel Stat Lab 01/01/25 07:38 Completed Drug Screen,Urine Stat Lab 01/01/25 07:23 Completed Lactate (Lactic Acid) Stat Lab 01/01/25 07:38 Results Lipase Stat Lab 01/01/25 07:38 Completed Magnesium Stat Lab 01/01/25 07:38 Completed Partial Thromboplastin Time Stat Lab 01/01/25 07:38 Completed Procalcitonin Stat Lab 01/01/25 07:38 Completed Prothrombin Time with INR Stat Lab 01/01/25 07:38 Completed Troponin I Stat Lab 01/01/25 07:38 Completed Urinalysis Stat Lab 01/01/25 07:23 Completed Urine Culture Stat Lab 01/01/25 07:23 Received Calcium Gluc/Ns 1000MG Ivpb [Calcium Gluc/Ns 1000mg Med 01/01/25 09:11 Discontinued Ivpb] 1,000 mg in 50 ml IV X1 Lactulose Syrup [Enulose Syrup] Med 01/01/25 09:11 Discontinued 20 gm PO X1 ONE Sod Polystyrene Sulfon Susp [Kayexalate Susp] Med 01/01/25 09:11 Discontinued 30 gm PO X1 ONE Sodium Chloride 0.9% 1000 ml [Ns] 1,000 ml Med 01/01/25 09:11 Discontinued IV 999 mls/hr Vital Signs Vital signs: Vital Signs Temperature 96.1 F L 01/01/25 07:08 Pulse Rate 65 01/01/25 07:08 Respiratory Rate 18 01/01/25 07:08 Blood Pressure 109/47 L 01/01/25 07:08 Pulse Oximetry (%) 100 01/01/25 07:08 Oxygen Delivery Method Room Air 01/01/25 07:08 Altered Mental Status MDM Narrative MDM Narrative:: I, Shaista Mcgee am scribing for and in the presence of Dr. Jordan. Patient data External records reviewed:: EMS form Clinical information provided by:: EMS Social determinants that could affect healthcare access:: none Patient has the following chronic illnesses:: End-stage liver disease, cirrhosis, abdominal ascites requiring frequent paracentesis, and history of lactulose non compliance. Code Status: DNR with comfort measures only. How is presenting disease/condition affected by chronic disease/condition?: caused by Evaluation data The following diagnostics were reviewed and interpreted by me:: lab results, radiology exam(s) and EKG tracing(s) Lab and/or radiology exams considered but not ordered:: none Interpretation Summary: ammonia 126 lactic acid 2.3 creatine 1.7 BUN 27 potasium 5.6 RADIOLOGY Procedure(s): CT head/brain wo con Accession Number(s): [id number] cc: Tavo Joya MD; NO PRIMARY/FAMILY,PHYSICIAN; Liv Jordan MD~ Examination: CT brain head without contrast. 2-D sagittal coronal reconstructions Date and time of exam:January 01, 2025 0818 hours INDICATIONS: Altered mental status, patient fell today with injury to the head, head pain COMPARISON: November 12, 2024 CTDI: vol (mGy):45.9 DLP: (mGycm):877 Technique: Multiple CT axial sections of the brain have been obtained, 5 mm slice thickness. Contrast has not been administered. 2-D sagittal, coronal reconstructions have been obtained Low dose protocols were performed. One or more of the following dose reduction techniques were used; automated exposure control, adjustment of the mA and/or KV according to patient size, use of iterative reconstruction technique. Findings: No significant ventricular enlargement. Frontal atrophy Intra-axial or extra-axial hemorrhage density is not seen. No mass effect or midline shift Basal cisterns are not remarkable. Fourth ventricle is midline. Cranial vault intact. Impression: Negative for acute hemorrhage, mass effect or midline shift Dictated By: Tavo Joya MD Procedure(s): XR chest 1V portable Accession Number(s): [id number] cc: Tavo Joya MD; NO PRIMARY/FAMILY,PHYSICIAN; Liv Jordan MD~ Examination: AP chest single view Regarding: Portable supine AP chest single view Date and time: January 01, 2025 0750 hours Comparison November 13, 2019 INDICATIONS: Chest pain today. FINDINGS: Normal heart size Left lung pneumonia with layering left pleural fluid Moderate vascular congestion IMPRESSION: Left lung pneumonia with layering left pleural fluid Dictated By: Tavo Joya MD Medications / Prescriptions Medications or Prescriptions considered but not ordered:: none Medication administrations:: Medication Administration History Discontinued Medications Sodium Chloride (Ns) 1,000 mls @ 999 mls/hr IV .Q1H1M ONE Stop: 01/01/25 10:11 Last Admin: 01/01/25 09:30 Dose: 999 mls/hr Documented By: GM Calcium Gluconate/Sodium Chloride (Calcium Gluc/Ns 1000mg Ivpb) 1,000 mg in 50 mls @ 50 mls/hr IV X1 ONE Stop: 01/01/25 10:10 Last Admin: 01/01/25 09:42 Dose: 50 mls/hr Documented By: GM Lactulose (Lactulose Syrup 20 Gm/30 Ml Udc) 20 gm PO X1 ONE; Protocol Stop: 01/01/25 09:12 Last Admin: 01/01/25 09:25 Dose: 20 gm Documented By: GM Sodium Polystyrene Sulfonate (Sod Polystyrene Sulfon Susp 15 Gm/60 Ml Btl) 30 gm PO X1 ONE Stop: 01/01/25 09:12 Last Admin: 01/01/25 09:26 Dose: 30 gm Documented By: GM see above if any Consultations Consultation(s) initiated? (list below): Yes Consultation #1 (Physician, Specialty, Details): Discussed test HPI, PMHx, lab, radiology results and/or management with resident working with the hospitalist. Will admit for further evaluation and management. Accepts patient for admission. Time: 10:22 Diagnosis Differential diagnosis altered mental status: altered mental status and other (lactic acidosis, encephalopathy, end-stage liver disease) Most likely diagnosis given after review of the tests above:: Acute hepatic encephalopathy Hyperkalemia Admission Indicated Admission indicated?: indicated Admission Request Was there a request for admission?: Yes Admission Attestation Admission request attestation: Discussed case with [] from Hospitalist service regarding admission. Discussed patients ED course, exam findings, labs, and radiology results. The Hospitalist [agrees,declines] to accept the patient for admission. Disposition Plan Disposition Plan: Admit Discharge Plan Plan Patient Disposition: Admit Acute Care w/in Hospital Prescriptions/Referrals Prescriptions/Med Rec: No Action levothyroxine 25 mcg Tablet 25 mcg PO QDAY pantoprazole 40 mg tablet,delayed release (DR/EC) 40 mg PO QDAY Patient Comments: TAKE ONE TABLET BY MOUTH EVERY DAY HEARTBURN FOR GASTRITIS furosemide 20 mg tablet 20 mg PO BID Patient Comments: TAKE ONE TABLET BY MOUTH TWICE DAILY lactulose [Kristalose] 20 gram packet 30 g PO TID 30 Days Qty: 15 1RF Referrals: No Primary/Family,Physician [Primary Care Provider] - In 1 week Problem List Clinical Impression: Acute hepatic encephalopathy, Hyperkalemia Patient/Caregiver Discharge Instructions Print Language: Trinidadian Stand Alone Forms: Erika Award Info., Patient Portal Info Letter
--- NOTE | 2025-01-01 07:27 | XR_ITS ---
Examination: CT brain head without contrast. 2-D sagittal coronal reconstructions Date and time of exam:January 01, 2025 0818 hours INDICATIONS: Altered mental status, patient fell today with injury to the head, head pain COMPARISON: November 12, 2024 CTDI: vol (mGy):45.9 DLP: (mGycm):877 Technique: Multiple CT axial sections of the brain have been obtained, 5 mm slice thickness. Contrast has not been administered. 2-D sagittal, coronal reconstructions have been obtained Low dose protocols were performed. One or more of the following dose reduction techniques were used; automated exposure control, adjustment of the mA and/or KV according to patient size, use of iterative reconstruction technique. Findings: No significant ventricular enlargement. Frontal atrophy Intra-axial or extra-axial hemorrhage density is not seen. No mass effect or midline shift Basal cisterns are not remarkable. Fourth ventricle is midline. Cranial vault intact. Impression: Negative for acute hemorrhage, mass effect or midline shift
[2025-01-01 07:48] LABS: Lactate (Lactic Acid) 2.3 mMol/L (0.4-2.0)
[2025-01-01 07:51] LABS: Collection Type, Urine Clean Catch
[2025-01-01 07:51] LABS: Basophils # (Auto) 0.1 Thou/mm3 (0.0-0.2); Basophils % (Auto) 1 % (0-2.5); Eosinophils # (Auto) 0.2 Thou/mm3 (0.0-0.5); Eosinophils % (Auto) 3 % (0-10); Hematocrit 28.7 % (41.0-53.0); Hemoglobin 9.7 g/dL (13.5-16.0); Immature Granulocytes % (Auto) 0 % (0-0); Immature Granulocytes Auto 0.03 Thou/mm3 (0.00-0.00); Lymphocytes # (Auto) 0.9 Thou/mm3 (1.0-4.8); Lymphocytes % (Auto) 12 % (10-50); Mean Corpuscular HGB Conc 33.8 g/dl (31.0-37.0); Mean Corpuscular Hemoglobin 29.3 pg (25.0-35.0); Mean Corpuscular Volume 87 fL (80-100); Monocytes # (Auto) 0.8 Thou/mm3 (0.0-0.8); Monocytes % (Auto) 11 % (0-12); Neutrophils % (Auto) 72 % (37-80); Nucleated Red Blood Cell % 0 /100 WBC (0); Platelet Count 137 Thou/mm3 (140-440); RDW Standard Deviation 42.5 fL (35.1-43.9); Red Blood Count 3.31 Miln/mm3 (4.50-5.90)
[2025-01-01 08:34] LABS: B-Type Natriuretic Peptide 78 pg/mL (0-100)
[2025-01-01 08:35] LABS: Ammonia 126 uMol/L (11-32)
[2025-01-01 09:01] LABS: Alanine Aminotransferase 17 U/L (10-49); Albumin, Serum 2.5 gm/dL (3.4-4.8); Albumin/Globulin Ratio 0.7 (1.2-2.2); Alcohol, Blood Medical < 3.0 mg/dL (0-10.0); Alkaline Phosphatase 95 U/L (46-116); Anion Gap 6 (7-16); Aspartate Amino Transferase 29 U/L (0-34); BUN/Creatinine Ratio 16 Ratio (12-20); Bilirubin,Total 1.1 mg/dL (0.3-1.2); Blood Urea Nitrogen 27 mg/dL (9-23); Calcium 7.7 mg/dL (8.3-10.6); Calcium (Corrected) 8.9 mg/dL (8.5-10.1); Carbon Dioxide 23.8 mMol/L (20.0-31.0); Chloride 106 mMol/L (98-107); Creatinine (Component) 1.7 mg/dL (0.6-1.3); Estimated Creatinine Clearance 42.3 mL/min (>60); Globulin 3.7 gm/dL (2.3-3.5); Glucose 113 mg/dL (74-106); INR 1.1 (0.9-1.3); Lipase 43 U/L (12-53); Magnesium 2.1 mg/dL (1.6-2.6); Osmolality,Calculated 278 (275-295); Partial Thromboplastin Time 29.9 Seconds (22.0-36.0); Potassium 5.6 mMol/L (3.4-5.1); Procalcitonin 0.15 ng/ml (0.0-0.49); Prothrombin Time 12.2 Seconds (9.0-12.2); Sodium 136 mMol/L (136-145); Total Protein 6.2 gm/dL (5.7-8.2); Troponin I < 0.002 ng/mL (0.0-0.045); eGFR 44 See Note
[2025-01-01 09:06] LABS: Bacteria,Urine Rare; RBC,Urine 1 /hpf (0-3); Squamous Epithelial Cell,Urine 2 /hpf (0-5); WBC,Urine 1 /hpf (0-5)
[2025-01-01 09:08] LABS: Bilirubin,Urine Negative (Negative); Blood,Urine 1+ (Negative); Clarity,Urine Clear (Clear/Hazy); Color,Urine Lt Yellow (Lt Yel-Yel); Glucose, Urine Negative (Negative); Ketones,Urine Negative (Negative); Leukocyte Esterase,Urine 1+ (Negative); Nitrite,Urine Negative (Negative); Protein,Urine Negative (Neg - Trace); Urobilinogen,Urine 0.2 mg/dL (0.0-1.0)
[2025-01-01 09:10] LABS: Amphetamine/Methamp Scrn,U Negative (Negative); Barbiturate Screen,Urine Negative (Negative); Benzodiazepines Screen,Urine Negative (Negative); Benzoylecgonine Screen, Ur Negative (Negative); Fentanyl Screen,Urine Negative (Negative); Opiate Screen,Urine Negative (Negative); THC Screen,Urine Negative (Negative)
[2025-01-01] MEDS: LACTULOSE SYRUP 20 GM/30 ML UDC PO (09:25)
[2025-01-01] MEDS: SOD POLYSTYRENE SULFON SUSP 15 GM/60 ML BTL 30 GM PO (09:26)
[2025-01-01] MEDS: SODIUM CHLORIDE 0.9% 1000 ML 1,000 ML 999 ML IV (09:30)
[2025-01-01] MEDS: CALCIUM GLUC/NS 1000MG IVPB 1,000 MG/50 ML BAG 50 MG IV (09:42)
--- NOTE | 2025-01-01 10:30 | PC.NURSE ---
DR. PHILLIPS INFORMED ABOUT ELEVATED LACTIC AND STATES NO SEPSIS ALERT NEEDED
[2025-01-01 10:47] LABS: Reflex Lactate? Y
[2025-01-01 11:58] LABS: Lactic Acid, 3 HR 3.2 mMol/L (0.4-2.0)
--- NOTE | 2025-01-01 14:25 | PD.RESHP ---
Documentation for date of: 01/01/25 HPI History of Present Illness History of present illness: HPI is limited as patient is poor historian at this time Tristian is a 64 y/o male w/ past medical history of cirrhosis, recurrent paracentesis (a couple times a week), hypotension comes in for an evaluation of altered mental status. Patient reports he does not know how he got here. He is unsure of the time currently but he knows that we are at the hospital. He says that he takes his lactulose, but is unsure how often he takes it, and at what dose however he knows that he takes it consistently. He also says that he has liver problems and that he is not on the liver transplant list. He also says that he is currently in hospice as well. He is complaining of feeling cold at this time. He denies any other symptoms of chest pain, shortness of breath, abdominal pain, nausea, vomiting. He says that his last bowel movement was a couple of days ago. He says that he gets paracenteses a couple of times a week. Denies seeing blood in his stool or coughing up or throwing up blood. He denies taking any other medicines other than his lactulose. He has no other complaints at this time ED course: Patient arrived to the ED with a temperature of 96.1, heart rate 65, respiratory rate of 18, blood pressure of 109/47, saturating 100% on room air. Patient was worked up was found to have sodium 136, potassium 5.6, bicarb 24, BUN/creatinine of 27 and 1.7, glucose 113, calcium 8.9, magnesium 2.1, Pro-Valentin 0.15, ammonia 126, troponin negative x 1, white count 7, hemoglobin 9.7, platelets 137. EKG showed sinus rhythm QTc 439, no peaked T waves, no ST changes. Chest x-ray showed left layering pneumonia, and possible pleural effusion. Patient was given Kayexalate 30, normal saline 1 L bolus, lactulose 20 mg, and 1 g of calcium gluconate. 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 Is with his , lives with his , has no kids. Has not drink in several years, is not on liver transplant list, does not smoke, no history of oral IV drug use. Review of Systems Review of Systems Narrative Review of Systems: ROS limited as patient is poor historian at this time 12 point ROS system reviewed and is otherwise negative unless stated directly in the HPI Exam Vital Signs Temp Pulse Resp BP Pulse Ox O2 Del Method 98.1 F 77 15 103/60 100 Room Air 01/01/25 13:33 01/01/25 13:33 01/01/25 13:33 01/01/25 13:33 01/01/25 13:33 01/01/25 13:33 Narrative Exam General: AAOx2, NAD, appears to be older, appears to be slightly disheveled, lying in bed HEENT: Moist mucous membranes, conjunctiva clear, EOMI, PERRLA, Cardiovascular: S1, S2, radial pulses +2 bilat, RRR Pulmonary: No cough no wheezing, some diminished breath sounds in left lung GI: Bowel sounds present, slightly distended with ascites, bandage over right upper quadrant like related to recent paracentesis Extremities: No presence of trace or pitting edema in lower extremities bilaterally, dorsalis pedis pulses +2 bilaterally Neuro: AAOx2, no focal motor or sensory deficits in the UE or LE bilat Psych: Unable to cooperate Results: Labs 01/02/25 05:14 01/02/25 05:14 Labs: Short CBC 01/01/25 Range/Units 07:38 WBC 7.0 (3.8-10.6) Thou/mm3 Hgb 9.7 L (13.5-16.0) g/dL Hct 28.7 L (41.0-53.0) % Plt Count 137 L (140-440) Thou/mm3 BMP 01/01/25 07:38 Sodium 136 Potassium 5.6 H Chloride 106 Carbon Dioxide 23.8 BUN 27 H Creatinine 1.7 H Glucose 113 H Calcium 7.7 L Cardiac Enzymes 01/01/25 Range/Units 07:38 Troponin I < 0.002 (0.0-0.045) ng/mL Liver Function 01/01/25 Range/Units 07:38 Total Bilirubin 1.1 (0.3-1.2) mg/dL AST 29 (0-34) U/L ALT 17 (10-49) U/L Alkaline Phosphatase 95 (46-116) U/L Albumin 2.5 L (3.4-4.8) gm/dL Urine 01/01/25 Range/Units 07:23 Urine Color Lt Yellow (Lt Yel-Yel) Urine Clarity Clear (Clear/Hazy) Urine pH 6.0 (5.0-7.0) Ur Specific [place] 1.010 (1.001-1.035) Urine Protein Negative (Neg - Trace) Urine Glucose (UA) Negative (Negative) Quality Measures Quality Measures none Advance care planning discussed with:: patient Medications Home Medications and Allergies Home Medications ?Medication ?Instructions ?Recorded ?Confirmed ?Type levothyroxine 25 mcg tablet 25 mcg PO QDAY 10/19/19 01/01/25 History Held on 11/15/24. Instructions: Resume on 11/22/24. Until seen by hospice furosemide 20 mg tablet 20 mg PO BID 01/26/24 01/01/25 History Held on 11/15/24. Instructions: Resume on 11/22/24. Until seen by hospice pantoprazole 40 mg tablet,delayed 40 mg PO QDAY 01/26/24 01/01/25 History release Allergies Allergy/AdvReac Type Severity Reaction Status Date / Time No Known Allergies Allergy Verified 01/01/25 11:36 Visit Medications Discontinued Medications Sodium Chloride (Ns) 1,000 mls @ 999 mls/hr IV .Q1H1M ONE Stop: 01/01/25 10:11 Last Infusion: 01/01/25 10:34 Dose: Infused Calcium Gluconate/Sodium Chloride (Calcium Gluc/Ns 1000mg Ivpb) 1,000 mg in 50 mls @ 50 mls/hr IV X1 ONE Stop: 01/01/25 10:10 Last Infusion: 01/01/25 10:36 Dose: Infused Lactulose (Lactulose Syrup 20 Gm/30 Ml Udc) 20 gm PO X1 ONE; Protocol Stop: 01/01/25 09:12 Last Admin: 01/01/25 09:25 Dose: 20 gm Sodium Polystyrene Sulfonate (Sod Polystyrene Sulfon Susp 15 Gm/60 Ml Btl) 30 gm PO X1 ONE Stop: 01/01/25 09:12 Last Admin: 01/01/25 09:26 Dose: 30 gm Assessment & Plan Plan Assessment Tristian is a 64 y/o male w/ past medical history of cirrhosis, recurrent paracentesis, hypotension admitted for hepatic encephalopathy. #Hepatic encephalopathy #Cirrhosis Head CT normal Patient likely in this state due to missing some lactulose doses Ammonia in the 120s Bili unremarkable, liver enzymes unremarkable MELD?Na score: 16 Child-Scherer: 9 points, child class B Plan: ? Lactulose 30 g 3 times daily and Rifaximin 550 mg BID PO ? Neurochecks every 4 hours ? Will consider GI consult later ? Trend platelets, PT/INR, T. bili and transaminases ? Will hold on SBP prophylaxis at this time #CKD #Lactic acidosis type B #Hyperkalemia #Hypercalcemia Potassium 5.6, given calcium gluconate 1 g as well as Kayexalate 30 g Lactate uptrending likely cirrhosis Lactate 3.2 Plan: ? Avoid nephrotoxic agents ? Renally dose medicines ? Renal panel 6 PM today ? Trend Lactate #? Pneumonia #? Left pleural effusion Chest ray shows left-sided possible area pneumonia and pleural effusion Vitals unremarkable, white count normal Plan: ? Follow-up blood cultures ? Consider antibiotics #Health Maintenance Disposition: Telemetry DVT prophylaxis: Heparin q12h GI prophylaxis: Protonix Diet: Pending swallow eval CODE STATUS: DNR Patient seen and care discussed with my attending physician, Dr. Rubens Hyde, PGY-1 Attending Provider Attestation/Addendum I have examined the patient, reviewed labs and imaging findings, discussed the case with the resident(s), and reviewed entered orders. I agree with the plan of care as outlined in this note, with these additional summaries/recommendations: Patient seen at bedside. Patient will be admitted for hepatic encephalopathy. Ammonia impressively elevated to 126 on admission. Start lactulose and monitor for improvement. CT head negative for acute hemorrhage, mass effect or midline shift. Patient has underlying decompensated cirrhosis and currently on hospice care. We will reach out to patient's for further goals and management. Hyperkalemia present and given Kayexalate in the ED. Follow-up afternoon repeat potassium. Patient has underlying CKD and kidney function relatively at baseline. Continue to avoid nephrotoxic agents and renally dose medications. Lactic acidosis present most likely type B from underlying cirrhosis. Repeat hematology and chemistry panel in AM. Dr. Rubens MD
[2025-01-01] MEDS: LACTULOSE SYRUP 20 GM/30 ML UDC 30 GM PO ×2 (15:45→21:56)
[2025-01-01] MEDS: PANTOPRAZOLE INJ 40 MG VIAL IVP (15:46)
[2025-01-01 18:51] LABS: Lactate (Lactic Acid) 2.7 mMol/L (0.4-2.0)
[2025-01-01 21:49] LABS: Reflex Lactate? Y
[2025-01-01] MEDS: rifaximin 550 MG TABLET PO (21:57)
[2025-01-01] MEDS: HEPARIN SOD INJ 5000 UNIT/ML VIAL SC (21:57)
[2025-01-01 22:42] LABS: Lactic Acid, 3 HR 3.1 mMol/L (0.4-2.0)
[2025-01-02] VITALS (10 sets, daily range): BP systolic 95–114; BP diastolic 49–65; PULSE 70–90; RESP 11–20; TEMP 36.1–36.8; O2SAT 96–100; BMI 23.6; BMI 23.7
[2025-01-02] MEDS: LACTULOSE SYRUP 20 GM/30 ML UDC 30 GM PO ×3 (05:25→21:29)
[2025-01-02 05:59] LABS: Basophils # (Auto) 0.1 Thou/mm3 (0.0-0.2); Basophils % (Auto) 1 % (0-2.5); Eosinophils # (Auto) 0.5 Thou/mm3 (0.0-0.5); Eosinophils % (Auto) 8 % (0-10); Hematocrit 25.8 % (41.0-53.0); Immature Granulocytes % (Auto) 0 % (0-0); Immature Granulocytes Auto 0.01 Thou/mm3 (0.00-0.00); Lymphocytes # (Auto) 0.9 Thou/mm3 (1.0-4.8); Lymphocytes % (Auto) 16 % (10-50); Mean Corpuscular HGB Conc 32.6 g/dl (31.0-37.0); Mean Corpuscular Hemoglobin 29.1 pg (25.0-35.0); Mean Corpuscular Volume 89 fL (80-100); Monocytes # (Auto) 0.7 Thou/mm3 (0.0-0.8); Monocytes % (Auto) 12 % (0-12); Neutrophils # (Auto) 3.7 Thou/mm3 (1.8-7.7); Neutrophils % (Auto) 63 % (37-80); Nucleated Red Blood Cell % 0 /100 WBC (0); Platelet Count 117 Thou/mm3 (140-440); Red Blood Count 2.89 Miln/mm3 (4.50-5.90); White Blood Count 5.8 Thou/mm3 (3.8-10.6)
[2025-01-02 06:01] LABS: Hemoglobin 8.4 g/dL (13.5-16.0)
[2025-01-02 06:12] LABS: INR 1.1 (0.9-1.3); Partial Thromboplastin Time 32.5 Seconds (22.0-36.0); Prothrombin Time 12.2 Seconds (9.0-12.2)
[2025-01-02 06:32] LABS: Alanine Aminotransferase 16 U/L (10-49); Albumin, Serum 2.3 gm/dL (3.4-4.8); Albumin/Globulin Ratio 0.7 (1.2-2.2); Alkaline Phosphatase 89 U/L (46-116); Anion Gap 12 (7-16); Aspartate Amino Transferase 32 U/L (0-34); BUN/Creatinine Ratio 15 Ratio (12-20); Bilirubin,Total 1.2 mg/dL (0.3-1.2); Blood Urea Nitrogen 23 mg/dL (9-23); Calcium 7.8 mg/dL (8.3-10.6); Calcium (Corrected) 9.2 mg/dL (8.5-10.1); Carbon Dioxide 21.5 mMol/L (20.0-31.0); Chloride 110 mMol/L (98-107); Creatinine (Component) 1.5 mg/dL (0.6-1.3); Estimated Creatinine Clearance 48.4 mL/min (>60); Globulin 3.3 gm/dL (2.3-3.5); Glucose 94 mg/dL (74-106); Magnesium 1.9 mg/dL (1.6-2.6); Osmolality,Calculated 288 (275-295); Sodium 143 mMol/L (136-145); Total Protein 5.6 gm/dL (5.7-8.2); eGFR 51 See Note
[2025-01-02] MEDS: PANTOPRAZOLE INJ 40 MG VIAL IVP (09:22)
[2025-01-02] MEDS: rifaximin 550 MG TABLET PO ×2 (09:22→20:53)
[2025-01-02] MEDS: HEPARIN SOD INJ 5000 UNIT/ML VIAL SC ×2 (09:23→20:53)
--- NOTE | 2025-01-02 09:55 | PC.SS ---
Follow up note: Waiting for clinical improvement.
[2025-01-02 09:59] LABS: Lactate (Lactic Acid) 2.3 mMol/L (0.4-2.0)
[2025-01-02 12:58] LABS: Reflex Lactate? Y
--- NOTE | 2025-01-02 13:32 | ESPR_ITS ---
<Statement entered by Riddhi Marino MD - 01/02/25 16:03> Patient is seen and examined at bedside. Patient level of energy seems to be improving, today his first bowel movement. His abdomen slightly more distended than yesterday. As soon as the patient achieve 3 bowel movements per day and back to baseline of his mentation will be discharged possibly tomorrow. - Patient's plan and care discussed with my attending, Dr. Rubens Marino MD Internal Medicine PGY-2 Documentation for date of: 01/02/25 Subjective Subjective Interval history: Patient examined at bedside today. No acute overnight events. Patient reports she is doing well. Patient reports has had bowel movements. I spoke with patient's who reported that he missed a lactulose dose due to him having too much diarrhea. She also reports that he gets 3 paracenteses a week. No other complaints at this time. Exam Vital Signs Temp Pulse Resp BP Pulse Ox O2 Del Method 97.0 F 79 20 105/56 L 100 Room Air 01/02/25 08:00 01/02/25 08:00 01/02/25 08:00 01/02/25 08:00 01/02/25 08:00 01/02/25 08:00 Narrative Exam General: AAOx2, NAD, appears to be older, appears to be slightly disheveled, lying in bed HEENT: Moist mucous membranes, conjunctiva clear, EOMI, PERRLA, Cardiovascular: S1, S2, radial pulses +2 bilat, RRR Pulmonary: No cough no wheezing, some diminished breath sounds in left lung GI: Bowel sounds present, slightly distended with ascites, bandage over right upper quadrant like related to recent paracentesis Extremities: No presence of trace or pitting edema in lower extremities bilaterally, dorsalis pedis pulses +2 bilaterally Neuro: AAOx2, no focal motor or sensory deficits in the UE or LE bilat Psych: Unable to cooperate Objective Labs 01/03/25 05:12 01/03/25 05:12 Labs: Laboratory Results - last 24 hr 01/01/25 01/01/25 01/02/25 18:28 22:32 05:14 WBC 5.8 RBC 2.89 L Hgb 8.4 L Hct 25.8 L MCV 89 MCH 29.1 MCHC 32.6 RDW Std Deviation 45.0 H Plt Count 117 L Neut % (Auto) 63 Lymph % (Auto) 16 [place] % (Auto) 12 Eos % (Auto) 8 Baso % (Auto) 1 Neut # (Auto) 3.7 Lymph # (Auto) 0.9 L [place] # (Auto) 0.7 Eos # (Auto) 0.5 Baso # (Auto) 0.1 Immature Gran # (Auto) 0.01 H Absolute Nucleated RBC 0.00 Immature Gran % 0 Nucleated RBC % 0 PT 12.2 INR 1.1 APTT 32.5 Sodium 143 Potassium 4.0 D 4.0 Chloride 110 H Carbon Dioxide 21.5 Anion Gap 12 BUN 23 Creatinine 1.5 H Estim Creat Clear Calc 48.4 L eGFR 51 L BUN/Creatinine Ratio 15 Glucose 94 Calculated Osmolality 288 Lactic Acid 2.7 H 3.1 H Calcium 7.8 L Corrected Calcium 9.2 Phosphorus 4.0 Magnesium 1.9 Total Bilirubin 1.2 AST 32 ALT 16 Alkaline Phosphatase 89 Total Protein 5.6 L Albumin 2.3 L Globulin 3.3 Albumin/Globulin Ratio 0.7 L 01/02/25 09:49 WBC RBC Hgb Hct MCV MCH MCHC RDW Std Deviation Plt Count Neut % (Auto) Lymph % (Auto) [place] % (Auto) Eos % (Auto) Baso % (Auto) Neut # (Auto) Lymph # (Auto) [place] # (Auto) Eos # (Auto) Baso # (Auto) Immature Gran # (Auto) Absolute Nucleated RBC Immature Gran % Nucleated RBC % PT INR APTT Sodium Potassium Chloride Carbon Dioxide Anion Gap BUN Creatinine Estim Creat Clear Calc eGFR BUN/Creatinine Ratio Glucose Calculated Osmolality Lactic Acid 2.3 H Calcium Corrected Calcium Phosphorus Magnesium Total Bilirubin AST ALT Alkaline Phosphatase Total Protein Albumin Globulin Albumin/Globulin Ratio Quality Measures Quality Measures none Advance care planning discussed with:: patient and spouse () Assessment & Plan Assessment Current Active Medications: Generic Name Dose Route Start Last Admin Trade Name Freq PRN Reason Stop Dose Admin Albuterol/Ipratropium 3 ml 01/02/25 07:36 Albuterol/Ipratropium (Duoneb) Rt Meenu 3 Ml Nebu INH 01/31/25 18:59 Q6HRRT PRN WHEEZING Heparin Sodium (Porcine) 5,000 unit 01/01/25 21:00 01/02/25 09:23 Heparin Sod Inj 5000 Unit/Ml Vial SC 01/15/25 20:59 5,000 unit Q12H ONDINA Administration Lactulose 30 gm 01/01/25 14:45 01/02/25 05:25 Lactulose Syrup 20 Gm/30 Ml Udc PO 01/31/25 14:44 30 gm TID ONDINA Administration Protocol Pantoprazole Sodium 40 mg 01/01/25 14:45 01/02/25 09:22 Pantoprazole Inj 40 Mg Vial IVP 01/31/25 14:44 40 mg QDAY ONDINA Administration Rifaximin 550 mg 01/01/25 21:00 01/02/25 09:22 Rifaximin 550 Mg Tablet PO 01/08/25 20:59 550 mg BID ONDINA Administration Plan Assessment Tristian is a 64 y/o male w/ past medical history of cirrhosis, recurrent paracentesis, hypotension admitted for hepatic encephalopathy. #Hepatic encephalopathy, improving #Cirrhosis #Thrombocytopenia Head CT normal Patient likely in this state due to missing some lactulose doses Ammonia in the 120s Bili unremarkable, liver enzymes unremarkable MELD?Na score: 16 Child-Scherer: 9 points, child class B 01/02/2025: Patient's patient continues to improve in addition to his mentation, is having more bowel movements and is taking rifaximin and lactulose. Will hold on paracentesis. Plan: ? Lactulose 30 g 3 times daily and Rifaximin 550 mg BID PO ? Neurochecks every 4 hours ? Will consider GI consult later ? Trend platelets, PT/INR, T. bili and transaminases ? Will hold on SBP prophylaxis at this time ? Will hold on paracentesis at this time #CKD #Lactic acidosis type B, resolved #Hyperkalemia, resolved #Hypercalcemia, resolved Potassium 5.6, given calcium gluconate 1 g as well as Kayexalate 30 g Lactate uptrending likely cirrhosis Lactate 3.2 -> 2.3 Plan: ? Avoid nephrotoxic agents ? Renally dose medicines #Normocytic anemia Likely related to cirrhosis and anemia of chronic disease Plan: ? Trend CBC ? Transfusion protocol for hemoglobin below 7 #? Pneumonia #? Left pleural effusion Chest ray shows left-sided possible area pneumonia and pleural effusion Vitals unremarkable, white count normal Blood cultures No growth after 1 day Plan: ? Follow-up blood cultures ? Consider antibiotics #Health Maintenance Disposition: Telemetry DVT prophylaxis: Heparin q12h GI prophylaxis: Protonix Diet: Hepatic CODE STATUS: DNR Patient seen and care discussed with my attending physician, Dr. Art and my senior resident, Dr. Ned Hyde, PGY-1 Attending Provider Attestation/Addendum I have examined the patient, reviewed labs and imaging findings, discussed the case with the resident(s), and reviewed entered orders. I agree with the plan of care as outlined in this note, with these additional summaries/recommendations: Patient seen at bedside. No acute overnight events. Patient admitted for hepatic encephalopathy. His mental status appears improved today although not yet back to baseline. Continue lactulose and monitor for resolution. CT head negative for acute hemorrhage, mass effect or midline shift. Patient has underlying decompensated cirrhosis and currently on hospice care. Patient reports he gets weekly paracentesis and will order for am tomorrow. Hyperkalemia resolved. Patient has underlying CKD and kidney function relatively at baseline. Continue to avoid nephrotoxic agents and renally dose medications. Lactic acidosis present most likely type B from underlying cirrhosis. Repeat hematology and chemistry panel in AM. Dr. Rubens MD
--- NOTE | 2025-01-02 15:25 | PC.SS ---
SS met with patient regarding his d/c plan. Pt is alert/oriented. Pt was admitted for Acute Encephalopathy. Pt confirmed demographic and contact information is correct on facesheet. Pt resides with . Pt ambulates using a 4 wheel with seat, rollator walker. Pt requires assistance with all ADLs. Pt named his , Jackie Martinez medical decision maker if he is unable. SS also spoke to by phone who states pt is followed by [facility] and her choice is to continue with them. SS provided verbal choice for d/c to home or SNF. ?s choice is for pt to return home upon d/c. D/C plan: Return home with [facility] Next of Kin: Jackie Martinez, , phone# [phone] Address: Correct on facesheet
[2025-01-03] VITALS (9 sets, daily range): BP systolic 97–115; BP diastolic 48–71; PULSE 60–84; RESP 16–20; TEMP 36.4–37.3; O2SAT 95–98; BMI 38.7
[2025-01-03] MEDS: LACTULOSE SYRUP 20 GM/30 ML UDC 30 GM PO ×3 (05:30→21:02)
[2025-01-03 05:56] LABS: Basophils # (Auto) 0.1 Thou/mm3 (0.0-0.2); Basophils % (Auto) 1 % (0-2.5); Eosinophils # (Auto) 0.5 Thou/mm3 (0.0-0.5); Eosinophils % (Auto) 9 % (0-10); Hematocrit 25.7 % (41.0-53.0); Immature Granulocytes % (Auto) 0 % (0-0); Immature Granulocytes Auto 0.01 Thou/mm3 (0.00-0.00); Lymphocytes # (Auto) 1.1 Thou/mm3 (1.0-4.8); Lymphocytes % (Auto) 22 % (10-50); Mean Corpuscular HGB Conc 32.7 g/dl (31.0-37.0); Mean Corpuscular Hemoglobin 29.7 pg (25.0-35.0); Mean Corpuscular Volume 91 fL (80-100); Monocytes # (Auto) 0.7 Thou/mm3 (0.0-0.8); Monocytes % (Auto) 14 % (0-12); Neutrophils # (Auto) 2.7 Thou/mm3 (1.8-7.7); Neutrophils % (Auto) 53 % (37-80); Nucleated Red Blood Cell % 0 /100 WBC (0); Platelet Count 90 Thou/mm3 (140-440); RDW Standard Deviation 45.6 fL (35.1-43.9); Red Blood Count 2.83 Miln/mm3 (4.50-5.90); White Blood Count 5.1 Thou/mm3 (3.8-10.6)
[2025-01-03 06:00] LABS: INR 1.1 (0.9-1.3); Partial Thromboplastin Time 36.2 Seconds (22.0-36.0); Prothrombin Time 12.1 Seconds (9.0-12.2)
[2025-01-03 06:06] LABS: Hemoglobin 8.4 g/dL (13.5-16.0)
[2025-01-03 06:17] LABS: Alanine Aminotransferase 15 U/L (10-49); Albumin, Serum 2.2 gm/dL (3.4-4.8); Albumin/Globulin Ratio 0.7 (1.2-2.2); Alkaline Phosphatase 89 U/L (46-116); Anion Gap 9 (7-16); Aspartate Amino Transferase 30 U/L (0-34); BUN/Creatinine Ratio 13 Ratio (12-20); Bilirubin,Total 1.3 mg/dL (0.3-1.2); Blood Urea Nitrogen 19 mg/dL (9-23); Calcium 7.3 mg/dL (8.3-10.6); Calcium (Corrected) 8.7 mg/dL (8.5-10.1); Carbon Dioxide 23.8 mMol/L (20.0-31.0); Chloride 107 mMol/L (98-107); Creatinine (Component) 1.5 mg/dL (0.6-1.3); Estimated Creatinine Clearance 60.7 mL/min (>60); Globulin 3.3 gm/dL (2.3-3.5); Glucose 98 mg/dL (74-106); Magnesium 1.8 mg/dL (1.6-2.6); Osmolality,Calculated 281 (275-295); Phosphorous 3.2 mg/dL (2.4-5.1); Potassium 3.9 mMol/L (3.4-5.1); Sodium 140 mMol/L (136-145); Total Protein 5.5 gm/dL (5.7-8.2); eGFR 51 See Note
[2025-01-03] MEDS: PANTOPRAZOLE INJ 40 MG VIAL IVP (08:05)
[2025-01-03] MEDS: rifaximin 550 MG TABLET PO ×2 (08:05→21:02)
--- NOTE | 2025-01-03 10:06 | PC.SS ---
SS has sent Hospice referral to [facility] using [facility]. Per , pt was established with [facility] before being hospitalized and her request is to continue with them.
--- NOTE | 2025-01-03 14:30 | PC.NURSE ---
Pt scheduled for US paracentesis. Notified Dr. Marino of drainage port for abdomen that pt uses at home for ascites. Dr. Marino ordered ok to access port. 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 Unable to drain from port. Charge Maia notified Dr. Stanton and recommended abdomen CT. Notified Dr. Marino of recommendation, Abdomen CT ordered.
--- NOTE | 2025-01-03 14:51 | XR_ITS ---
Examination: CT abdomen without intravenous contrast. Coronal 2-D reconstructions. Sagittal 2-D reconstructions. Date and time of exam:January 03, 2025 1525 hours INDICATIONS: Abdominal distention today CTDI: vol (mGy): 8.8 DLP: (mGycm): 353 Technique: Axial images of the abdomen have been obtained, 3 mm slice thickness, without intravenous contrast 2-D sagittal coronal reconstructions Low dose protocols were performed. One or more of the following dose reduction techniques were used; automated exposure control, adjustment of the mA and/or KV according to patient size, use of iterative reconstruction technique. Findings: Moderate to large left pleural effusion Cirrhosis, liver nodular in contour Significant splenomegaly Significant ascites Absent gallbladder No pancreatic mass Portosystemic collateral vessels medial to the spleen No hydronephrosis 2 mm left renal calculus No kink in the tubing into the abdomen noted IMPRESSION: Cirrhosis, prominent ascites
--- NOTE | 2025-01-03 15:09 | ESPR_ITS ---
Documentation for date of: 01/03/25 Subjective Subjective Interval history: Patient examined at bedside today. No acute overnight events. Patient reports that he is wondering when to go home. He says he had 2 bowel movements yesterday. He has not had any bowel movements today today. He has no other complaints this time. Exam Vital Signs Temp Pulse Resp BP Pulse Ox O2 Del Method 98.6 F 74 20 102/68 97 Room Air 01/03/25 12:00 01/03/25 14:31 01/03/25 14:01/03/25 12:00 01/03/25 14:01/03/25 12:00 Narrative Exam General: AAOx2, NAD, appears to be older, appears to be slightly disheveled, lying in bed HEENT: Moist mucous membranes, conjunctiva clear, EOMI, PERRLA, Cardiovascular: S1, S2, radial pulses +2 bilat, RRR Pulmonary: No cough no wheezing, GI: Bowel sounds present, slightly distended with ascites, has port for paracentesis in R quadrant of abdomen Extremities: No presence of trace or pitting edema in lower extremities bilaterally, dorsalis pedis pulses +2 bilaterally Neuro: AAOx2, no focal motor or sensory deficits in the UE or LE bilat Psych: Unable to cooperate Objective Labs 01/04/25 04:35 01/04/25 04:35 Labs: Laboratory Results - last 24 hr 01/03/25 05:12 WBC 5.1 RBC 2.83 L Hgb 8.4 L Hct 25.7 L MCV 91 MCH 29.7 MCHC 32.7 RDW Std Deviation 45.6 H Plt Count 90 L D Neut % (Auto) 53 Lymph % (Auto) 22 [place] % (Auto) 14 H Eos % (Auto) 9 Baso % (Auto) 1 Neut # (Auto) 2.7 Lymph # (Auto) 1.1 [place] # (Auto) 0.7 Eos # (Auto) 0.5 Baso # (Auto) 0.1 Immature Gran # (Auto) 0.01 H Absolute Nucleated RBC 0.00 Immature Gran % 0 Nucleated RBC % 0 PT 12.1 INR 1.1 APTT 36.2 H Sodium 140 Potassium 3.9 Chloride 107 Carbon Dioxide 23.8 Anion Gap 9 BUN 19 Creatinine 1.5 H Estim Creat Clear Calc 60.7 L eGFR 51 L BUN/Creatinine Ratio 13 Glucose 98 Calculated Osmolality 281 Calcium 7.3 L Corrected Calcium 8.7 Phosphorus 3.2 Magnesium 1.8 Total Bilirubin 1.3 H AST 30 ALT 15 Alkaline Phosphatase 89 Total Protein 5.5 L Albumin 2.2 L Globulin 3.3 Albumin/Globulin Ratio 0.7 L Quality Measures Quality Measures none Advance care planning discussed with:: patient Assessment & Plan Assessment Current Active Medications: Generic Name Dose Route Start Last Admin Trade Name Freq PRN Reason Stop Dose Admin Albuterol/Ipratropium 3 ml 01/02/25 07:36 Albuterol/Ipratropium (Duoneb) Rt Meenu 3 Ml Nebu INH 01/31/25 18:59 Q6HRRT PRN WHEEZING Heparin Sodium (Porcine) 5,000 unit 01/01/25 21:00 01/03/25 07:59 Heparin Sod Inj 5000 Unit/Ml Vial SC 01/15/25 20:59 Not Given Q12H ONDINA Lactulose 30 gm 01/01/25 14:45 01/03/25 05:30 Lactulose Syrup 20 Gm/30 Ml Udc PO 01/31/25 14:44 30 gm TID ONDINA Administration Protocol Midodrine 5 mg 01/03/25 14:00 Midodrine 5 Mg Tablet PO 02/02/25 13:59 TID ONDINA Pantoprazole Sodium 40 mg 01/04/25 09:00 Pantoprazole 40 Mg Tablet PO 02/03/25 08:59 QDAY ONDINA Rifaximin 550 mg 01/01/25 21:00 01/03/25 08:05 Rifaximin 550 Mg Tablet PO 01/08/25 20:59 550 mg BID ONDINA Administration Plan Assessment Tristian is a 64 y/o male w/ past medical history of cirrhosis, recurrent paracentesis, hypotension admitted for hepatic encephalopathy. #Hepatic encephalopathy, grade 2, improving #Cirrhosis #Thrombocytopenia Head CT normal Patient likely in this state due to missing some lactulose doses Ammonia in the 120s Bili unremarkable, liver enzymes unremarkable MELD?Na score: 16 Child-Scherer: 9 points, child class B 01/02/2025: Patient's patient continues to improve in addition to his mentation, is having more bowel movements and is taking rifaximin and lactulose. Will hold on paracentesis. 01/03/2025: Patient to get paracentesis today, however port may be kinked, will order further imaging to further assess for paracentesis. Patient's mentation continues to improve, however we will see if paracentesis will be done here otherwise will be done with hospice group. Plan: ? Lactulose 30 g 3 times daily and Rifaximin 550 mg BID PO ? Neurochecks every 4 hours ? Trend platelets, PT/INR, T. bili and transaminases ? Paracentesis today #CKD #Lactic acidosis type B, resolved #Hyperkalemia, resolved #Hypercalcemia, resolved Potassium 5.6, given calcium gluconate 1 g as well as Kayexalate 30 g Lactate uptrending likely cirrhosis Lactate 3.2 -> 2.3 Plan: ? Avoid nephrotoxic agents ? Renally dose medicines #Normocytic anemia Likely related to cirrhosis and anemia of chronic disease Plan: ? Trend CBC ? Transfusion protocol for hemoglobin below 7 #? Pneumonia #? Left pleural effusion Chest ray shows left-sided possible area pneumonia and pleural effusion Vitals unremarkable, white count normal Blood cultures No growth after 1 day Plan: ? Follow-up blood cultures ? Consider antibiotics #Health Maintenance Disposition: Telemetry DVT prophylaxis: Heparin q12h GI prophylaxis: Protonix Diet: Hepatic CODE STATUS: DNR Patient seen and care discussed with my attending physician, Dr. Rubens Hyde, PGY-1 Attending Provider Attestation/Addendum I have examined the patient, reviewed labs and imaging findings, discussed the case with the resident(s), and reviewed entered orders. I agree with the plan of care as outlined in this note, with these additional summaries/recommendations: Patient seen at bedside. No acute overnight events. Continue lactulose and rifaximin for hepatic encephalopathy. Patient has peritoneal port and was planned for paracentesis today although port currently not draining fluid. Case discussed with interventional radiology and we will order CT abdomen pelvis to evaluate port. Patient will be discharged back on hospice when medically cleared. Patient was counseled extensively on the importance of taking his lactulose. Dr. Rubens MD
[2025-01-03] MEDS: MIDODRINE 5 MG TABLET PO ×2 (15:46→21:02)
[2025-01-04] VITALS: BP 108/55; PULSE 74; PULSE 83; RESP 20; TEMP 36.9; O2SAT 95
[2025-01-04 04:00] VITALS: BP 109/59; PULSE 72; PULSE 73; RESP 20; TEMP 38.1; O2SAT 95
[2025-01-04] MEDS: LACTULOSE SYRUP 20 GM/30 ML UDC 30 GM PO (05:29)
[2025-01-04 05:30] VITALS: BP 109/59; PULSE 72
[2025-01-04] MEDS: MIDODRINE 5 MG TABLET PO (05:30)
[2025-01-04 05:53] VITALS: BMI 24.3
[2025-01-04 06:26] LABS: Basophils # (Auto) 0.1 Thou/mm3 (0.0-0.2); Basophils % (Auto) 1 % (0-2.5); Eosinophils # (Auto) 0.4 Thou/mm3 (0.0-0.5); Eosinophils % (Auto) 9 % (0-10); Hematocrit 23.9 % (41.0-53.0); Immature Granulocytes % (Auto) 0 % (0-0); Immature Granulocytes Auto 0.01 Thou/mm3 (0.00-0.00); Lymphocytes % (Auto) 20 % (10-50); Mean Corpuscular HGB Conc 33.5 g/dl (31.0-37.0); Mean Corpuscular Hemoglobin 29.4 pg (25.0-35.0); Mean Corpuscular Volume 88 fL (80-100); Monocytes # (Auto) 0.8 Thou/mm3 (0.0-0.8); Monocytes % (Auto) 16 % (0-12); Neutrophils # (Auto) 2.7 Thou/mm3 (1.8-7.7); Neutrophils % (Auto) 54 % (37-80); Nucleated Red Blood Cell % 0 /100 WBC (0); Platelet Count 111 Thou/mm3 (140-440); RDW Standard Deviation 43.6 fL (35.1-43.9); Red Blood Count 2.72 Miln/mm3 (4.50-5.90)
[2025-01-04 06:32] LABS: INR 1.2 (0.9-1.3); Prothrombin Time 12.8 Seconds (9.0-12.2)
[2025-01-04 06:54] LABS: Alanine Aminotransferase 12 U/L (10-49); Albumin/Globulin Ratio 0.6 (1.2-2.2); Alkaline Phosphatase 86 U/L (46-116); Anion Gap 9 (7-16); Aspartate Amino Transferase 27 U/L (0-34); BUN/Creatinine Ratio 13 Ratio (12-20); Blood Urea Nitrogen 18 mg/dL (9-23); Calcium 7.3 mg/dL (8.3-10.6); Calcium (Corrected) 8.9 mg/dL (8.5-10.1); Carbon Dioxide 23.3 mMol/L (20.0-31.0); Chloride 108 mMol/L (98-107); Creatinine (Component) 1.4 mg/dL (0.6-1.3); Estimated Creatinine Clearance 50.2 mL/min (>60); Globulin 3.1 gm/dL (2.3-3.5); Glucose 96 mg/dL (74-106); Magnesium 1.8 mg/dL (1.6-2.6); Osmolality,Calculated 281 (275-295); Phosphorous 3.2 mg/dL (2.4-5.1); Sodium 140 mMol/L (136-145); Total Protein 5.1 gm/dL (5.7-8.2); eGFR 55 See Note
[2025-01-04 08:00] VITALS: BP 106/55; PULSE 66; PULSE 67; RESP 14; TEMP 37.1; O2SAT 94
[2025-01-04] MEDS: HEPARIN SOD INJ 5000 UNIT/ML VIAL SC (08:55)
[2025-01-04] MEDS: rifaximin 550 MG TABLET PO (08:55)
[2025-01-04] MEDS: PANTOPRAZOLE 40 MG TABLET PO (08:56)
--- NOTE | 2025-01-04 09:02 | PC.SS ---
Follow up note: Pt will have paracentesis today. Pt is established with [facility] prior to being hospitalized.
--- NOTE | 2025-01-04 11:59 | ESDS_ITS ---
Planned Discharge Date 01/04/25 DS: Providers Provider Date of admission: 01/01/25 11:21 Primary care physician: Physician No Primary/Family Admitting Provider: Yuval Art MD Attending Provider on Admission: Yuval Art MD Consults: 01/02/25 14:06 Referral Hospice Routine Comment: Attending Provider on DC: Yuval Art MD Discharging Provider: Yuval Art MD DS: Diagnosis Problem List Completed Was Problem List Reviewed/Reconciled?: Yes Hospital Course Hospital Course Hospital course: Tristian is a 64 y/o male w/ past medical history of cirrhosis, recurrent paracentesis (a couple times a week), hypotension who was admitted to [facility] on January 01, 2025 for hepatic encephalopathy. Patient arrived to the ED with a temperature of 96.1, heart rate 65, respiratory rate of 18, blood pressure of 109/47, saturating 100% on room air. Patient was worked up was found to have sodium 136, potassium 5.6, bicarb 24, BUN/creatinine of 27 and 1.7, glucose 113, calcium 8.9, magnesium 2.1, Pro-Valentin 0.15, ammonia 126, troponin negative x 1, white count 7, hemoglobin 9.7, platelets 137. EKG showed sinus rhythm QTc 439, no peaked T waves, no ST changes. Chest x-ray showed left layering pneumonia, and L possible pleural effusion. Patient was given Kayexalate 30, normal saline 1 L bolus, lactulose 20 mg, and 1 g of calcium gluconate. Medicine was consulted and patient admitted to floors. While on the floors, it was discovered that patient had missed a dose of lactulose as there hospice nurse had told him to hold the dose if he has worsening diarrhea in which she did. While on the floors, he was given his lactulose 30 g 3 times a day. Rifaximin 550 mg twice daily was also added for the patient. Patient cont inued to improve with his mentation. Patient has baseline grade 2 hepatic encephalopathy. There was discussion in which patient may get a paracentesis while in the hospital, however patient preferred to have paracentesis done at home with hospice nurse. Patient was then discharged. Patient was also given midodrine 5 mg 3 times a day as needed for systolic blood pressure below 90. Patient was then discharged on hospice as he was on previously. On imaging there was possible pleural effusion that was noted, however it was not tapped while in the floors as this may have been a chronic problem. Discharge Instructions: Follow up with your PCP within one week Take your Lactulose 30 grams three times daily Take Midodrine 5 mg three times a day as needed if systolic blood pressure (the top number) is below 90 Continue with Hospice Care Return to ER if your symptoms worsen or return Have hospice nurse complete paracentesis at home today Problem List: #Hepatic encephalopathy, grade 2 #Cirrhosis #Thrombocytopenia #CKD #Lactic acidosis type B, resolved #Hyperkalemia, resolved #Hypercalcemia, resolved #Normocytic anemia #? Pleural Effusion Discharge summary was reviewed with my attending Dr. Rubens Hyde, PGY-1 Time Spent with Patient Time attestation: Total time spent providing and/or coordinating discharge services: Time spent: Greater than 30 minutes Exam Vital Signs Temp Pulse Resp BP Pulse Ox O2 Del Method 98.7 F 66 14 106/55 L 94 L Room Air 01/04/25 08:00 01/04/25 08:00 01/04/25 08:00 01/04/25 08:00 01/04/25 08:00 01/04/25 08:00 Narrative Exam General: AAOx2, NAD, appears to be older, appears to be slightly disheveled, lying in bed HEENT: Moist mucous membranes, conjunctiva clear, EOMI, PERRLA, Cardiovascular: S1, S2, radial pulses +2 bilat, RRR Pulmonary: No cough no wheezing, GI: Bowel sounds present, slightly distended with ascites, has port for paracentesis in R quadrant of abdomen Extremities: No presence of trace or pitting edema in lower extremities bilaterally, dorsalis pedis pulses +2 bilaterally Neuro: AAOx2, no focal motor or sensory deficits in the UE or LE bilat Psych: Unable to cooperate Discharge Plan Plan Patient Disposition: Home w/HOSPICE Patient condition on transfer: Stable Care Plan Goals: Discharge Instructions: Follow up with your PCP within one week Take your Lactulose 30 grams three times daily Take Midodrine 5 mg three times a day as needed if systolic blood pressure (the top number) is below 90 Continue with Hospice Care Return to ER if your symptoms worsen or return Have hospice nurse complete paracentesis at home today Prescriptions/Referrals Prescriptions/Med Rec: New midodrine 5 mg tablet 5 mg PO TID 30 Days Qty: 30 0RF Rx Instructions: Take as needed up to three times a day if systolic blood pressure is below 90 do not give last dose of day after 6PM or within 4 hrs of bedtime Continued lactulose [Kristalose] 20 gram packet 30 g PO TID 30 Days Qty: 15 1RF Discontinued levothyroxine 25 mcg Tablet 25 mcg PO QDAY pantoprazole 40 mg tablet,delayed release (DR/EC) 40 mg PO QDAY Patient Comments: TAKE ONE TABLET BY MOUTH EVERY DAY HEARTBURN FOR GASTRITIS furosemide 20 mg tablet 20 mg PO BID Patient Comments: TAKE ONE TABLET BY MOUTH TWICE DAILY Referrals: No Primary/Family,Physician [Primary Care Provider] - Patient/Caregiver Discharge Instructions Discharge Activity: activity as tolerated Education Materials: Paracentesis Dc, ED Ascites Print Language: Hungarian Stand Alone Forms: Erika Award Info., Patient Portal Info Letter Discharge Order Discharge Orders: Discharge (Routine); Ordered 01/04/25 Ordered By: Meche Hyde Quality Discharge Quality Measures VTE prophylaxis (Lovenox ) Attestestation MD Attestation I have examined the patient, reviewed labs and imaging findings, discussed the case with the resident(s), and reviewed entered orders. I agree with the plan of care as outlined in this note. Time Spent: [address] Rubens MD
[2025-01-04 12:00] VITALS: BP 100/56; PULSE 67; RESP 18; TEMP 37.3; O2SAT 95
--- NOTE | 2025-01-04 12:04 | PC.SS ---
Addendum entered by America Pryor 01/04/25 13:56: SS has informed Norma from [facility] pt has left hospital. SS has also notified Pratibha Maurer from [facility] by phone. SS aslo informed [facility] on [facility]. Original Note: SS has sent updated inquiry to [facility] upon their request. SS has spoken to Pratibha from [facility] who states they are able to accommodate the Paracentesis.
[2025-01-04 12:42] VITALS: PULSE 69; RESP 17; O2SAT 97
== END 2025-01-04 13:42 | disposition hospice, home (50) | DRG 441 ==
LOC: SERX 10:23 → SERHOLD 11:30 → S2NX 14:06
PROVIDERS: Admitting Provider Student in an Organized Health Care Education/Training Program; Emergency Provider Emergency Medicine; Visit Provider Student in an Organized Health Care Education/Training Program
DX: K76.82 Hepatic encephalopathy (principal); J18.9 Pneumonia, unspecified organism; E87.20 Acidosis, unspecified; J90 Pleural effusion, not elsewhere classified; K74.60 Unspecified cirrhosis of liver; I95.9 Hypotension, unspecified; N18.9 Chronic kidney disease, unspecified; K72.10 Chronic hepatic failure without coma; D63.8 Anemia in other chronic diseases classified elsewhere; E87.5 Hyperkalemia; E83.52 Hypercalcemia; D69.6 Thrombocytopenia, unspecified; Z51.5 Encounter for palliative care; Z66 Do not resuscitate; Z79.899 Other long term (current) drug therapy; Z91.199 Patient's noncompliance with other medical treatment and regimen due to unspecified reason
CPT/HCPCS: 36415; 70450; 71045; 74150; 80053; 80307; 80320; 80329; 81001; 82140; 83605; 83690; 83735; 83880; 84100; 84132; 84145; 84484; 85025; 85610; 85730; 87040; 87086; 93005; 96365; 99285; A9270; J0613; J1644; J2470; J7030; G0480

== ENCOUNTER 2025-01-04 17:29 | Emergency (ER) | payer OTHER, MEDICAID, SELFPAY ==
[2025-01-04 17:29] VITALS: BMI 26.6
[2025-01-04 18:17] VITALS: BP 96/67; PULSE 81; RESP 18; TEMP 37.1; O2SAT 97
--- NOTE | 2025-01-04 18:19 | PD.EDRME ---
Rapid Medical Screening Exam RME Arrival date/time: 01/04/25 17:29 64-year-old male currently on hospice presents with who reports patient was recently admitted to the hospital and discharged today at around 2 PM she reports that his paracentesis at home is not currently working. Patient's hospice nurse instructed him to come back to the ER Chief Complaint: General Adult/Misc Complain
[2025-01-04] MEDS: LACTULOSE SYRUP 20 GM/30 ML UDC PO (19:20)
--- NOTE | 2025-01-04 19:25 | PC.NURSE ---
AFTER GIVING MED, PT AND PT'S FAMILY SAID THEY MIGHT GO HOME.
--- NOTE | 2025-01-04 20:35 | PC.NURSE ---
NO ANSWER AT ER LOBBY OR OUTSIDE ER.
--- NOTE | 2025-01-04 20:41 | PC.NURSE ---
NO ANSWER AT ER LOBBY OR OUTSIDE ER.
== END 2025-01-04 20:42 | disposition left against medical advice (07) ==
LOC: SERX 18:43
PROVIDERS: Emergency Provider Emergency Medicine
DX: Z76.89 Persons encountering health services in other specified circumstances (principal); Z53.29 Procedure and treatment not carried out because of patient's decision for other reasons
CPT/HCPCS: 99281; A9270

== ENCOUNTER 2025-01-07 09:20 | Emergency (ER) | payer OTHER, MEDICAID, SELFPAY ==
[2025-01-07 09:21] VITALS: BMI 24.3
--- NOTE | 2025-01-07 10:05 | XR_ITS ---
Examination: Ultrasound-guided paracentesis Abdominal sonogram limited Date and time of exam: January 07, 2025 1312 hours INDICATIONS: Cirrhosis, increasing ascites and abdominal distention this week Informed consent provided. A timeout was completed verifying correct patient, procedure, site, positioning, and special adequate movement if applicable. Technique: Multiple sonographic images of the abdomen have been obtained. Appropriate area for paracentesis was marked. Local anesthesia is obtained with 1% lidocaine. Yueh catheter is successfully introduced. Findings: Abdominal sonographic images demonstrate sufficient ascitic fluid for paracentesis. After placing the Yueh catheter, 5650 cc of fluid were successfully removed. During and after completion of the procedure the patient appear in satisfactory and stable condition with no complications observed. Estimated blood loss 0 cc Impression: Abdominal ascites Successful ultrasound-guided paracentesis as described above
--- NOTE | 2025-01-07 10:06 | PD.EDRME ---
Rapid Medical Screening Exam [facility] Arrival date/time: 01/07/25 09:20 64-year-old male with a history of liver failure presents to the emergency room with a chief complaint of abdominal distention. Patient states his last paracentesis was 1 week ago. Patient has a drain in the right upper quadrant but states it is not working anymore. I have greeted and performed a focused initial assessment of this patient. A comprehensive ED assessment and evaluation of the patient, analysis of all test results, and completion of the medical decision making process will be conducted by additional ED providers. Chief Complaint: General Adult/Misc Complain Time Seen by Provider: 01/07/25 09:49 Vital signs: Vital Signs Temperature 98.2 F 01/07/25 10:21 Pulse Rate 71 01/07/25 10:21 Respiratory Rate 20 01/07/25 10:21 Blood Pressure 102/66 01/07/25 10:21 Pulse Oximetry (%) 98 01/07/25 10:21 Oxygen Delivery Method Room Air 01/07/25 10:21 Vital signs reviewed by provider: Yes
[2025-01-07 10:21] VITALS: BP 102/66; PULSE 71; RESP 20; TEMP 36.8; O2SAT 98
[2025-01-07 10:22] VITALS: BMI 27.3
[2025-01-07 10:24] LABS: Basophils # (Auto) 0.1 Thou/mm3 (0.0-0.2); Basophils % (Auto) 1 % (0-2.5); Eosinophils # (Auto) 0.4 Thou/mm3 (0.0-0.5); Eosinophils % (Auto) 7 % (0-10); Hematocrit 25.1 % (41.0-53.0); Immature Granulocytes % (Auto) 1 % (0-0); Immature Granulocytes Auto 0.03 Thou/mm3 (0.00-0.00); Lymphocytes % (Auto) 17 % (10-50); Mean Corpuscular HGB Conc 32.7 g/dl (31.0-37.0); Mean Corpuscular Hemoglobin 29.8 pg (25.0-35.0); Mean Corpuscular Volume 91 fL (80-100); Monocytes # (Auto) 0.7 Thou/mm3 (0.0-0.8); Monocytes % (Auto) 12 % (0-12); Neutrophils # (Auto) 3.9 Thou/mm3 (1.8-7.7); Neutrophils % (Auto) 63 % (37-80); Nucleated Red Blood Cell % 0 /100 WBC (0); Platelet Count 137 Thou/mm3 (140-440); Red Blood Count 2.75 Miln/mm3 (4.50-5.90); White Blood Count 6.2 Thou/mm3 (3.8-10.6)
[2025-01-07 10:26] LABS: Hemoglobin 8.2 g/dL (13.5-16.0)
[2025-01-07 10:37] LABS: INR 1.2 (0.9-1.3); Prothrombin Time 12.5 Seconds (9.0-12.2)
[2025-01-07 10:57] LABS: Alanine Aminotransferase 14 U/L (10-49); Albumin, Serum 2.3 gm/dL (3.4-4.8); Albumin/Globulin Ratio 0.7 (1.2-2.2); Alkaline Phosphatase 95 U/L (46-116); Anion Gap 7 (7-16); Aspartate Amino Transferase 29 U/L (0-34); BUN/Creatinine Ratio 13 Ratio (12-20); Bilirubin,Total 0.6 mg/dL (0.3-1.2); Blood Urea Nitrogen 24 mg/dL (9-23); Calcium 7.7 mg/dL (8.3-10.6); Calcium (Corrected) 9.1 mg/dL (8.5-10.1); Carbon Dioxide 24.1 mMol/L (20.0-31.0); Chloride 105 mMol/L (98-107); Creatinine (Component) 1.8 mg/dL (0.6-1.3); Estimated Creatinine Clearance 40.4 mL/min (>60); Globulin 3.2 gm/dL (2.3-3.5); Glucose 162 mg/dL (74-106); Osmolality,Calculated 279 (275-295); Potassium 3.8 mMol/L (3.4-5.1); Sodium 136 mMol/L (136-145); Total Protein 5.5 gm/dL (5.7-8.2); eGFR 41 See Note
[2025-01-07 11:18] VITALS: BP 109/70; PULSE 72; RESP 18; TEMP 36.8; O2SAT 100
--- NOTE | 2025-01-07 15:59 | EDNOTE_ITS ---
ED Recheck Abnl Lab Rx-RME/HPI General Chief Complaint: General Adult/Misc Complain Stated Complaint: NEEDING PARACENTESIS Time Seen by Provider: 01/07/25 09:49 Arrival date/time: 01/07/25 09:20 RME / HPI RME / HPI narrative: 01/07/25 09:20 64-year-old male with a history of liver failure presents to the emergency room with a chief complaint of abdominal distention. Patient states his last paracentesis was 1 week ago. Patient has a drain in the right upper quadrant but states it is not working anymore. I have greeted and performed a focused initial assessment of this patient. A comprehensive ED assessment and evaluation of the patient, analysis of all test results, and completion of the medical decision making process will be conducted by additional ED providers. DR. ROSA CHRISTIE ED EVALUATION: 64 year old male presents to the Emergency Department with complaint of a nonfunctional hospice paracentesis drain with abdominal distention. Patient has end-stage renal disease from drinking contaminated evon No history of alcohol abuse. No pain, discomfort, or other symptoms reported. He is just here to get the dressing changed. PMHx: Cirrhosis, recurrent paracentesis, hepatic encephalopathy Social Hx: Former smoker. No alcohol or substance use. Related Data Previous Rx's ?Medication ?Instructions ?Recorded lactulose 20 gram oral packet 30 g PO TID 1 month #15 ea 11/15/24 (Kristalose) midodrine 5 mg tablet 5 mg PO TID 1 month #30 tabs 01/04/25 Allergies Allergy/AdvReac Type Severity Reaction Status Date / Time No Known Allergies Allergy Verified 01/07/25 09:22 Review of Systems Review of Systems Systems Reviewed: All systems reviewed, normal except as documented Narrative Review of Systems: GEN: No fever, no chills, no weight loss EYES: No discharge, no visual changes, no pain HEENT: No ear pain, no congestion, no sore throat PULM: No shortness of breath, no cough, no congestion CV: No chest pain, no dyspnea on exertion, no palpitations GI: No nausea, no vomiting, no diarrhea, + abdominal distention, no pain, no constipation : No frequency, no urgency and no dysuria MUSC/SKEL: No joint pain, no back pain SKIN: No rash PSYCH: No hallucinations, no depression HEME/LYMPH: No easy bleeding or bruising tendencies NEURO: No weakness, no headache Past Medical History Past Medical History CARDIAC: Positive Cardiac Disorders and Hypercholesterolemia RESPIRATORY: Positive Chronic Obstructive Pulmonary Disease (COPD) and Asthma GASTROINTESTINAL: Positive Gastrointestinal Disorders, Cirrhosis, Gall Bladder Disease, Esophageal Varices, Diverticulosis and Gastroesophageal Reflux Disease MUSCULOSKELETAL: Positive Musculoskeletal Disorders and Degenerative Disk Disease ENDOCRINE: Positive Endocrine Disorders and Hypothyroidism OTHER HISTORY: Positive Chicken Pox Surgical History SURGICAL: Positive Tonsillectomy Social History SMOKING STATUS: Former smoker SECOND HAND EXPOSURE: No SUBSTANCE USE: does not use ALCOHOL: Never ED Exam Narrative Physical exam: GENERAL APPEARANCE: AxOx4, generally well-appearing, no acute distress, pale, cachectic, muscle wasting HEENT: NC, AT. MMM. EOMI, clear conjunctiva, oropharynx clear. NECK: Supple without lymphadenopathy. No stiffness or restricted ROM. HEART: Normal rate and regular rhythm, normal S1/S1, no m/r/g LUNGS: CTAB, moving air well. No crackles or wheezes are heard. ABDOMEN: Soft, distended, questionable large mass? BACK: No midline C/T/L spine pain or deformity, No CVAT, no obvious deformity. EXTREMITIES: Without cyanosis, clubbing or edema. MUSCULOSKELETAL: FROM of all major joints, no chest tenderness NEUROLOGICAL: Grossly nonfocal. Alert and oriented, moving all 4 extremities. CN not formally tested but appear grossly intact. Skin: Warm and dry without any rash. Pale but no jaundice. Course Quality Measures none Orders Category Date Time Status ED Ear Irrigation X1 Care 01/07/25 14:46 Completed US paracentesis abd w/image Stat Exams 01/07/25 10:05 Completed CBC Stat Lab 01/07/25 10:15 Completed CMP [Comprehensive Metabolic Panel] Stat Lab 01/07/25 10:15 Completed PT [Prothrombin Time with INR] Stat Lab 01/07/25 10:15 Completed PTT [Partial Thromboplastin Time] Stat Lab 01/07/25 10:15 Completed Lidocaine 1% Pf 30 ml [Xylocaine 1% Pf 30 ml] Med 01/07/25 13:07 Discontinued 30 ml .ROUTE .STK-MED ONE Vital Signs Vital signs: Vital Signs Temperature 98.2 F 01/07/25 10:21 Pulse Rate 71 01/07/25 10:21 Respiratory Rate 20 01/07/25 10:21 Blood Pressure 102/66 01/07/25 10:21 Pulse Oximetry (%) 98 01/07/25 10:21 Oxygen Delivery Method Room Air 01/07/25 10:21 Recheck / Abnormal Lab / Rx MDM Narrative MDM Narrative:: IShaista am scribing for and in the presence of Dr. German. Patient data External records reviewed:: [facility] previous records (Reviewed last admission discharge dated 01/04/25, patient admitted for the following: Acute hepatic encephalopathy) Clinical information provided by:: patient Social determinants that could affect healthcare access:: other (specify) (Former smoker) Patient has the following chronic illnesses:: Cirrhosis, recurrent paracentesis, hepatic encephalopathy How is presenting disease/condition affected by chronic disease/condition?: exacerbated by Evaluation data The following diagnostics were reviewed and interpreted by me:: lab results and radiology exam(s) Lab and/or radiology exams considered but not ordered:: none Interpretation Summary: Procedure(s): US paracentesis abd w/image Accession Number(s): [id number] cc: Justin Mireles; Tavo Joya MD; NO PRIMARY/FAMILY,PHYSICIAN~ Examination: Ultrasound-guided paracentesis Abdominal sonogram limited Date and time of exam: January 07, 2025 1312 hours INDICATIONS: Cirrhosis, increasing ascites and abdominal distention this week Informed consent provided. A timeout was completed verifying correct patient, procedure, site, positioning, and special adequate movement if applicable. Technique: Multiple sonographic images of the abdomen have been obtained. Appropriate area for paracentesis was marked. Local anesthesia is obtained with 1% lidocaine. Yueh catheter is successfully introduced. Findings: Abdominal sonographic images demonstrate sufficient ascitic fluid for paracentesis. After placing the Yueh catheter, 5650 cc of fluid were successfully removed. During and after completion of the procedure the patient appear in satisfactory and stable condition with no complications observed. Estimated blood loss 0 cc Impression: Abdominal ascites Successful ultrasound-guided paracentesis as described above Dictated By: Tavo Joya MD Medications / Prescriptions Medications or Prescriptions considered but not ordered:: none Medication administrations:: Medication Administration History Discontinued Medications Lidocaine HCl (Lidocaine Inj Pf 1% 30 Ml Vial) Confirm Administered Dose 30 ml .ROUTE .STK-MED ONE Stop: 01/07/25 13:08 see above Consultations Consultation(s) initiated? (list below): No Diagnosis Recheck Differential Diagnosis: other (End stage liver disease, liver cirrhosis, abdominal ascites) Most likely diagnosis given after review of the tests above:: End stage liver disease Abdominal ascites Hospice care Admission Indicated Admission indicated?: not indicated Admission Request Was there a request for admission?: No Disposition Plan Disposition Plan: Discharge Discharge Attestation Discharge Attestation: The patient and all family members were given an opportunity to ask questions and understood the discharge instructions. Discharge instructions specifically effects, indications for sooner follow up or return to the emergency department, and the expected course of current diagnosis. Patient condition: Stable Discharge Plan Plan Patient Disposition: HOME (Self Care) Patient condition on transfer: Stable Prescriptions/Referrals Prescriptions/Med Rec: No Action lactulose [Kristalose] 20 gram packet 30 g PO TID 30 Days Qty: 15 1RF midodrine 5 mg tablet 5 mg PO TID 30 Days Qty: 30 0RF Rx Instructions: Take as needed up to three times a day if systolic blood pressure is below 90 do not give last dose of day after 6PM or within 4 hrs of bedtime Referrals: No Primary/Family,Physician [Primary Care Provider] - In 1 week Problem List Clinical Impression: End stage liver disease, Abdominal ascites, Hospice care Patient/Caregiver Discharge Instructions Education Materials: Paracentesis Additional Instructions: Follow-up with your hospice care team as needed. Print Language: Bur[place]ian Stand Alone Forms: Erika Award Info., Patient Portal Info Letter
[2025-01-07 16:00] VITALS: BP 100/59; PULSE 63; RESP 16; TEMP 36.6; O2SAT 98
[2025-01-07 16:30] VITALS: BP 100/59; PULSE 65; RESP 17; TEMP 36.8; O2SAT 98
== END 2025-01-07 16:30 | disposition home or self-care (01) ==
PROVIDERS: Nurse Practitioner Family; Emergency Provider Emergency Medicine
DX: K74.60 Unspecified cirrhosis of liver (principal); R18.8 Other ascites; K72.10 Chronic hepatic failure without coma; Z51.5 Encounter for palliative care
CPT/HCPCS: 49083; 36415; 80053; 85025; 85610; 85730; 99284; C1729